=== PATIENT | male | born 1940 | race Caucasian/White ===

== ENCOUNTER 2016-08-12 12:52 | Inpatient (IN) | payer OTHER, MEDICARE ==
[2016-08-12 12:58] VITALS: BMI 25.2
--- NOTE | 2016-08-12 13:42 | PDOC ---
History of Present Illness <CheriEloisa - Last Filed: 08/12/16 14:35> - General History Source: Patient, Family <Tyra Marroquin - Last Filed: 08/12/16 16:51> - General Chief Complaint: Chest Pain Stated Complaint: CHEST PAIN, SOB Time Seen by Provider: 08/12/16 13:03 - History of Present Illness Initial Comments: 08/12/16 13:44 Patient is a 76 year old male with significant medical hx of DE, COPD (3L O2 at home; normal O2Sat is 90%), HTN, HLD, DM and CAD s/p cardiac stents x 5 who is presenting to the ED with left sided pleuritic chest pain since yesterday and several days of worsening shortness of breath. Patient reports he has had intermittent chest pain for the past several years but has worsened yesterday. His chest pain is localized to the left side, non-radiating, pleuritic in nature , and described as sharp and tight. The patient endorses worsening of his symptoms with exertion and increased swelling to his left leg. Family members report that the patient has had decreased appetite and increased fatigue over the past several days. The patient was on Coumadin, but is now on Plavix; he is unsure why he is on blood thinners and does not have a known history of blood clots. Denies fever, chills, cough, lightheadedness, palpitations, nausea, vomiting, diarrhea, abdominal pain, and recent travel. Ethnographer: Sanjay Kerr MD Quality Head: Sanjay Wright MD PMD: Cain Yun MD Social Hx: Former smoker for 30 years; 20 cigarettes per day. Social drinker. Denies illegal drug use. (Eloisa Alonzo) Past History <Eloisa Alonzo - Last Filed: 08/12/16 14:35> - Past Medical History Anemia: No Asthma: Yes Cancer: No Cardiac Disorders: Yes (DE, STENTS INSERTION X 5) CVA: Yes ("MILD" 2 YRS AGO) COPD: Yes CHF: Yes Dementia: No Diabetes: Yes (NIDDM) GI Disorders: Yes (HIATAL HERNIA) Disorders: No HTN: Yes Hypercholesterolemia: Yes Liver Disease: No Seizures: No Thyroid Disease: No - Surgical History Abdominal Surgery: No Appendectomy: No Cardiac Surgery: Yes (CARDIAC STENTS X5) Cholecystectomy: No Lung Surgery: No Neurologic Surgery: No Orthopedic Surgery: No - Psycho/Social/Smoking Cessation Hx Anxiety: No Suicidal Ideation: No Smoking Status: Yes Smoking History: Former smoker Have you smoked in the past 12 months: No Number of Cigarettes Smoked Daily: 20 If you are a former smoker, when did you quit?: 2013 Information on smoking cessation initiated: No 'Breaking Loose' booklet given: 02/22/12 Hx Alcohol Use: No Drug/Substance Use Hx: No Substance Use Type: None Hx Substance Use Treatment: No <Tyra Marroquin - Last Filed: 08/12/16 16:51> - Past Medical History Allergies/Adverse Reactions: Allergies Allergy/AdvReac Type Severity Reaction Status Date / Time No Known Allergies Allergy Verified 08/12/16 13:25 Home Medications: Ambulatory Orders Albuterol Sulfate [Proair Hfa -] 2 ih IH DAILY PRN #0 hfa.aer.ad 02/24/12 Atorvastatin Ca [Lipitor] 20 mg PO HS #0 tablet 02/24/12 Losartan Potassium 100 mg PO DAILY #0 tablet 02/24/12 Amlodipine Besylate [Norvasc -] 10 mg PO DAILY 11/18/14 Furosemide [Lasix -] 40 mg PO PRN 11/18/14 Metformin HCl [Glucophage -] 1,000 mg PO BIDAC 11/18/14 Metoprolol Succinate [Toprol XL -] 50 mg PO DAILY 03/27/15 Alprazolam 0.25 mg PO PRN PRN 05/29/15 Cholecalciferol (Vitamin D3) [Vitamin D3] 1,000 unit PO DAILY 05/29/15 Clopidogrel Bisulfate [Plavix -] 75 mg PO DAILY #0 tablet 05/30/15 Cholecalciferol (Vitamin D3) [Vitamin D3] 1,000 unit PO DAILY 08/12/16 Cardiac Specific PMH - Complaint Specific PMHX Angina: Yes Pacemaker: No Pulmonary Embolus: No <Tyra Marroquin - Last Filed: 08/12/16 16:51> Review of Systems <Eloisa Alonzo - Last Filed: 08/12/16 14:35> <Tyra Marroquin - Last Filed: 08/12/16 16:51> - Review of Systems Comments:: 08/12/16 13:45 CONSTITUTIONAL: Present: increased fatigue, loss of appetite Absent: fever, chills, diaphoresis HEENT: Absent: rhinorrhea, nasal congestion, throat pain, throat swelling, difficulty swallowing, mouth swelling, ear pain, eye pain, visual changes CARDIOVASCULAR: Present: chest pain, peripheral edema Absent: syncope, palpitations, irregular heart rate, lightheadedness RESPIRATORY: Present: shortness of breath, dyspnea with exertion Absent: cough, orthopnea, wheezing, stridor, hemoptysis GASTROINTESTINAL: Absent: abdominal pain, abdominal distension, nausea, vomiting, diarrhea, constipation, melena, hematochezia GENITOURINARY: Absent: dysuria, frequency, urgency, hesitancy, hematuria, flank pain, genital pain MUSCULOSKELETAL: Absent: myalgia, arthralgia, joint swelling SKIN: Absent: rash, itching, pallor HEMATOLOGIC/IMMUNOLOGIC: Absent: easy bleeding, easy bruising, lymphadenopathy, frequent infections ENDOCRINE: Absent: unexplained weight gain, unexplained weight loss, heat intolerance, cold intolerance NEUROLOGIC: Absent: headache, focal weakness or paresthesia, dizziness, unsteady gait, seizure, mental status changes, bladder or bowel incontinence. PSYCHIATRIC: Absent: anxiety, depression, suicidal or homicidal ideation, hallucinations (Justin Alonzoa) *Physical Exam <CheriJustina - Last Filed: 08/12/16 14:35> - Physical Exam General Appearance: Yes: Nourished Respiratory/Chest: positive: Other (decreased breath sounds left side, to mid chest. right side clear. access. musc. use) Cardiovascular: positive: Regular Rhythm, Regular Rate, Edema Vascular Pulses: Dorsalis-Pedis (R): 2+, Doralis-Pedis (L): 2+ Gastrointestinal/Abdominal: positive: Normal Bowel Sounds Extremity: positive: Pedal Edema Integumentary: positive: Normal Color, Dry, Warm <Tyra Marroquin - Last Filed: 08/12/16 16:51> - Vital Signs Last Vital Signs Temp Pulse Resp BP Pulse Ox 98 F 87 18 119/67 88 L 08/12/16 12:56 08/12/16 12:56 08/12/16 12:56 08/12/16 12:56 08/12/16 12:56 - Physical Exam Comments: 08/12/16 13:46 GENERAL: Well developed, well nourished. Awake and alert. No acute distress. HEENT: Normocephalic, atraumatic. PERRLA, EOMI. No conjunctival pallor. Sclera are non- icteric. Moist mucous membranes. Oropharynx is clear. NECK: Supple. Full ROM. No JVD. Carotid pulses 2+ and symmetric, without bruits. No thyromegaly. No lymphadenopathy. CARDIOVASCULAR: Regular rate and rhythm. No murmurs, rubs, or gallops. Distal pulses are 2+ and symmetric. PULMONARY: Decreased breath sounds to the left. Increased labor use with respiration, including accessory muscle use. Speaking in full sentences. No wheezing, rales or rhonchi. ABDOMINAL: Soft. Non-tender. Non-distended. No rebound or guarding. No organomegaly. Normoactive bowel sounds. MUSCULOSKELETAL: Normal range of motion at all joints. No bony deformities or tenderness. No CVA tenderness. EXTREMITIES: 3+ pitting edema left lower extremity, 2+ pitting edema to the right lower extremity. No cyanosis. No clubbing. No calf tenderness. SKIN: Warm and dry. Normal capillary refill. No rashes. No jaundice. NEUROLOGICAL: Alert, awake, appropriate. Cranial nerves 2-12 intact. Normal speech. PSYCHIATRIC: Cooperative. Good eye contact. Appropriate mood and affect. (Eloisa Alonzo) Heart Score/ECG Review <Eloisa Alonzo - Last Filed: 08/12/16 14:35> - History History: Highly suspicious - Electrocardiogram EKG: Non specific repolarization disturbance - Age Age: >/= 65 - Risk Factors Risk Factors Heart Score: Yes Hx Hypercholesterolemia, Yes Hx Hypertension, Yes Smoking History Based on the list above the patient has:: >/=3 risk factors or Hx atherosclerotic disease #1 ECG reviewed & interpreted by me at: 01:00 (new TWI AVL, V1, V2) General ECG Interpretation: Sinus Rhythm, Normal Intervals Compared to previous ECG there are: Other (comparison 05/03/14 new TWI V1 - V2) - ECG Intrepretation Rhythm: Regular Rhythm <Tyra Marroquin - Last Filed: 08/12/16 16:51> - ECG Intrepretation Comment:: 08/12/16 13:36 RBB old, left axis. rate 86 bpm. (Tyra Marroquin) ED Treatment Course - LABORATORY CBC & Chemistry Diagram: 08/12/16 14:11 08/12/16 14:11 <Eloisa Alonzo - Last Filed: 08/12/16 14:35> - LABORATORY CBC & Chemistry Diagram: 08/12/16 14:11 08/12/16 14:11 <Tyra Marroquin - Last Filed: 08/12/16 16:51> - ADDITIONAL ORDERS Additional order review: Laboratory Results 08/12/16 08/12/16 08/12/16 14:11 14:11 14:11 INR 1.19 H PTT (Actin FS) 29.6 Sodium 135 L Potassium 5.6 H D Chloride 97 L Carbon Dioxide 30 Anion Gap 8 BUN 32 H D Creatinine 1.1 D Creat Clearance w eGFR > 60 Random Glucose 213 H Calcium 8.9 Magnesium 1.9 Total Bilirubin 0.6 AST 89 H D ALT 93 H D Alkaline Phosphatase 225 H D Creatine Kinase 70 Troponin I 0.02 Total Protein 6.2 L Albumin 2.4 L D 08/12/16 14:11 RBC 3.87 L D MCV 89.2 MCHC 32.8 RDW 15.1 MPV 8.0 Neutrophils % 88.3 H D Lymphocytes % 4.5 L D Monocytes % 6.5 Eosinophils % 0.2 D Basophils % 0.5 - RADIOLOGY Radiology Studies Ordered: Category Date Time Status CHEST CTA [CT] Stat CT Scan 08/12/16 15:41 Ordered CHEST X-RAY PORTABLE* [RAD] Stat Radiology 08/12/16 13:45 Completed Radiograph Interpretation: 08/12/16 14:28 Chest X-Ray Frontal view of the chest is provided. Prior study is dated March 27, 2015. Diaphragms are low lying concerning for COPD. There is a suspected left upper lobe suprahilar mass now noted, measuring up to about 6 cm in size and recommend correlation with chest CT. The right lung apex is obscured due to soft tissue of the neck and jaw. Cardiac silhouette is upper limits of normal in size. Increased interstitial lung markings are noted which may reflect congestive changes. Impression: Suspected left upper lobe mass. Recommend chest CT. Additional findings as above. Findings were discussed with Dr. Marroquin. Reported By: Alfred Elena MD (Eloisa Alonzo) - Medications Given in the ED: ED Medications Discontinued Medications Generic Name Dose Route Start Last Admin Trade Name Desi PRN Reason Stop Dose Admin Albuterol/Ipratropium 1 amp 08/12/16 14:58 08/12/16 14:58 Duoneb - NEB 08/12/16 14:59 1 amp ONCE ONE Administration Aspirin 162 mg 08/12/16 13:44 08/12/16 14:10 Asa - PO 08/12/16 13:45 162 mg ONCE ONE Administration Medical Decision Making <Eloisa Alonzo - Last Filed: 08/12/16 14:35> <Tyra Marroquin - Last Filed: 08/12/16 16:51> - Medical Decision Making 08/12/16 13:36 76 yo M with h/o CAD HTN COPD home oxygen 3L, ( baseline sats 90) here wtih c/ o worseing sob last few days, also c/o left sided chest pain, no f/c. has had simlar symptoms in the past. also noted bilat leg swelling recently. no recent travel. states no knowon h/o blood clots. but has been on coumadin in past, discontinued due to bleeding. followed by [facility]. dr. Kerr Sanjay. on exam pt mild acc. m use, lung with decr breath sounds left lung, clear on right. card RRR no m/r/g. abd soft disteded. bilat pitting edema, left greater than right. skin warm and dry. differential: CHF, plueral effusion, mass pna, DE, pe. plan cxr bedside sono, ekg trop cb lytes tele monitoring. aspirin taking prior. will likley require admission. possible ct angio pending findings. 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 dr. wright, will see pt. new lung mass on cxr. d/w pt pcp dr. yun, would like admitted to Dr. Arias. 08/12/16 15:05 comparison EKG obtained from guard range dr. kerr no acute changes comparison 05/31/16 (Tyra Marroquin) *DC/Admit/Observation/Transfer <Eloisa Alonzo - Last Filed: 08/12/16 14:35> - Discharge Dispostion Admit: Yes <Tyra Marroquin - Last Filed: 08/12/16 16:51> Diagnosis at time of Disposition: Lung mass - Discharge Dispostion Decision to Admit order Date/Time: 08/12/16 16:50 (Tyra Marroquin) - Referrals Referrals: Cain Yun MD [Primary Care Provider] - - Attestations Scribe Attestion: 08/12/16 13:48 Documentation prepared by Eloisa Alonzo, acting as medical videographer for Tyra Marroquin MD. (Eloisa Alonzo)
[2016-08-12] MEDS ORDERED: ASPIRIN 81 MG CHEWABLE TABLETS PO ONE (13:44)
[2016-08-12] MEDS ORDERED: ASPIRIN COATED 81 MG TABLET.EC ONE (13:55)
[2016-08-12 14:26] LABS: BASOPHIL 0.5 % (0-2.0); EOSINOPHIL 0.2 % (0-4.5); MCH 29.3 pg (25.7-33.7); MCHC 32.8 g/dl (32.0-35.9); MEAN CELL VOLUME 89.2 fl (80-96); NEUTROPHILS 88.3 % (42.8-82.8); PLATELET COUNT 382 K/MM3 (134-434); RDW 15.1 % (11.9-15.9); WHITE BLOOD COUNT 14.8 K/mm3 (4.0-10.0)
[2016-08-12 14:43] LABS: INR 1.19 (0.82-1.09); PROTHROMBIN TIME (PATIENT) 13.1 SEC (9.98-11.88)
[2016-08-12] MEDS ORDERED: ALBUTEROL SO4 2.5/IPRATROPIUM 0.5 INH SOL 3 ML VIAL.NEB. NEB ONE ×2 (14:58→15:58)
[2016-08-12 15:13] LABS: ALBUMIN 2.4 g/dl (3.4-5.0); ANION GAP 8 (8-16); BILIRUBIN,TOTAL 0.6 mg/dL (0.2-1.0); CALCIUM 8.9 mg/dL (8.5-10.1); CO2 30 mmol/L (21-32); COCKROFT - GAULT 73.33; CREATININE 1.1 mg/dL (0.7-1.3); GLUCOSE,RANDOM 213 mg/dL (74-106); MAGNESIUM 1.9 mg/dL (1.8-2.4); SGOT/AST 89 U/L (15-37); SGPT/ALT 93 U/L (12-78); TOT PROT 6.2 g/dl (6.4-8.2)
[2016-08-12 15:15] LABS: ALK PHOS 225 U/L (45-117); TROPONIN I 0.02 ng/ml (0.00-0.05)
--- NOTE | 2016-08-12 15:55 | CON.PULM ---
Consult Consult Specialty:: PULMONARY Referred by:: Dr. Marroquin Reason for Consultation:: chest pain - History of Present Illness Chief Complaint: chest pain History of Present Illness: 76yo male with h/o HTN, DM, hyperlipidemia, CAD s/p stents, PAD, severe COPD/ emphysema, chronic hypoxic respiratory failure on home O2 who presents with left sided chest pain x 1 day. He went to his PMD for a routine physical 4 days ago, started experiencing left sided sharp pain at the lower rib border anterior axillary line. His shortness of breath is at baseline but with a cough productive of white sputum. No significant wheezing. Leg swelling at baseline. Reports decreased appetite and a 16lb weight loss in the past 6 months. No subjective fevers, chills or night sweats. He reports recent echocardiogram with his program writer which was reportedly normal. - History Source History Provided By: Patient, Family Member, Medical Record Limitations to Obtaining History: No Limitations - Past Medical History Cardio/Vascular: Yes: CAD, HTN, Hyperlipdemia, [place] Pulmonary: Yes: COPD, O2 Dependent - Alcohol/Substance Use Hx Alcohol Use: No - Smoking History Smoking history: Former smoker Have you smoked in the past 12 months: No Aproximately how many cigarettes per day: 20 If you are a former smoker, when did you quit?: 2013 - Social History Usual Living Arrangement: Alone ADL: Independent History of Recent Travel: No Home Medications - Allergies Allergies/Adverse Reactions: Allergies Allergy/AdvReac Type Severity Reaction Status Date / Time No Known Allergies Allergy Verified 08/12/16 13:25 - Home Medications Home Medications: Ambulatory Orders Albuterol Sulfate [Proair Hfa -] 2 ih IH DAILY PRN #0 hfa.aer.ad 02/24/12 Atorvastatin Ca [Lipitor] 20 mg PO HS #0 tablet 02/24/12 Losartan Potassium 100 mg PO DAILY #0 tablet 02/24/12 Amlodipine Besylate [Norvasc -] 10 mg PO DAILY 11/18/14 Furosemide [Lasix -] 40 mg PO PRN 11/18/14 Metformin HCl [Glucophage -] 1,000 mg PO BIDAC 11/18/14 Metoprolol Succinate [Toprol XL -] 50 mg PO DAILY 03/27/15 Alprazolam 0.25 mg PO PRN PRN 05/29/15 Cholecalciferol (Vitamin D3) [Vitamin D3] 1,000 unit PO DAILY 05/29/15 Clopidogrel Bisulfate [Plavix -] 75 mg PO DAILY #0 tablet 05/30/15 Cholecalciferol (Vitamin D3) [Vitamin D3] 1,000 unit PO DAILY 08/12/16 Review of Systems - Review of Systems Constitutional: reports: Loss of Appetite, Weakness. denies: Chills, Fever Eyes: denies: Recent Change in Vision HENT: denies: Nasal Congestion, Throat Pain Neck: denies: Stiffness, Tenderness Cardiovascular: reports: Chest Pain, Edema, Shortness of Breath. denies: Palpitations Respiratory: reports: Cough, SOB. denies: Hemoptysis, Wheezing Gastrointestinal: denies: Abdominal Pain, Nausea, Vomiting Genitourinary: denies: Dysuria, Hematuria Neurological: denies: Dizziness, Headache Endocrine: reports: Unexplained Weight Loss Physical Exam Vital Sings: Vital Signs Temperature 98 F 08/12/16 12:56 Pulse Rate 87 08/12/16 12:56 Respiratory Rate 18 08/12/16 12:56 Blood Pressure 119/67 08/12/16 12:56 O2 Sat by Pulse Oximetry (%) 88 L 08/12/16 12:56 Constitutional: Yes: Calm Eyes: Yes: Conjunctiva Clear, EOM Intact HENT: Yes: Atraumatic, Normocephalic Neck: Yes: Supple, Trachea Midline. No: Lymphadenopathy Cardiovascular: Yes: Regular Rate and Rhythm Respiratory: Yes: Regular, Diminished (distant breath sounds) ...Clubbing: No Gastrointestinal: Yes: Normal Bowel Sounds, Soft. No: Tenderness Edema: Yes Neurological: Yes: Alert, Oriented Labs: CBC, BMP 08/12/16 14:11 08/12/16 14:11 Imaging - Results Chest X-ray: Report Reviewed, Image Reviewed (interstitial changes, ?CHING mass) Problem List - Problems (1) Chest pain Code(s): R07.9 - CHEST PAIN, UNSPECIFIED (2) COPD (chronic obstructive pulmonary disease) Code(s): J44.9 - CHRONIC OBSTRUCTIVE PULMONARY DISEASE, UNSPECIFIED (3) Chronic respiratory failure with hypoxia Code(s): J96.11 - CHRONIC RESPIRATORY FAILURE WITH HYPOXIA (4) Elevated liver enzymes Code(s): R74.8 - ABNORMAL LEVELS OF OTHER SERUM ENZYMES (5) Chronic diastolic (congestive) heart failure Code(s): I50.32 - CHRONIC DIASTOLIC (CONGESTIVE) HEART FAILURE (6) Pulmonary hypertension Code(s): I27.2 - OTHER SECONDARY PULMONARY HYPERTENSION Assessment/Plan Chest Pain r/o Pneumonia vs Lung Mass Severe COPD Emphysema LV Diastolic Dysfunction Pulmonary HTN Elevated LFTs - empiric antibiotics - f/u cultures, send urinary antigens - inhaled bronchodilators - can defer systemic steroids at this time - agree with CT chest - abdominal ultrasound, trend LFTs - O2 to keep SPo2 >90% - echocardiogram - DVT prophylaxis Thank you for this consult Sanjay Wright MD
[2016-08-12] MEDS ORDERED: AZITHROMYCIN IVPB 500 MG in DEXTROSE 5%-WATER - 250 ML IVPB SCH (16:15)
[2016-08-12] MEDS ORDERED: CEFTRIAXONE 50 ML ONE ×2 (16:16→16:17)
[2016-08-12] MEDS ORDERED: AZITHROMYCIN IVPB 250 ML IVPB ONE (16:16)
[2016-08-12] MEDS: cefTRIAXone 1 GM/50 ML BAG (PRE-DOCKED) IVPB SCH (16:25)
[2016-08-12] MEDS: AZITHROMYCIN IVPB 500 MG/250 ML D5W PRE-DOCKED IVPB SCH (16:27)
[2016-08-12] MEDS ORDERED: ACETAMINOPHEN 325 MG TABLET (FP) PO PRN (16:30)
--- NOTE | 2016-08-12 16:39 | HP ---
Admitting History and Physical - Primary Care Physician PCP: Cain Yun - Admission Chief Complaint: I'm having trouble breathing History of Present Illness: Mr Varma is a pleasant 76 year old male who comes in with increasing dyspnea on exertion and left sided chest pain. He says he is always chronically short of breath and requires oxygen at times. However over the past week he notes he gets short of breath with minimal exertion and needs to rest. He also notes he has a sharp left sided, non-radiating chest pain with the shortness of breath as well. He says it is made worse by deep breathing and coughing. He has a chronic cough that is non-productive and unchanged. He denies fevers, chills, lightheadedness, passing out, chest pressure, abdominal pain, nausea, vomiting, diarrhea, pain on urination, or leg redness. He has chronic hesitancy on urination that is unchanged. He has decreased appetite over the past week. He has chronic leg swelling that is unchanged. History Source: Patient Limitations to Obtaining History: No Limitations - Past Medical History Cardiovascular: Yes: Aneurysm, CAD, HTN, Hyperlipdemia, [place] Pulmonary: Yes: COPD, O2 Dependent Renal/: Yes: Renal Inusuff - Past Surgical History Past Surgical History: Yes: Hernia Repair, Stent - Smoking History Smoking history: Former smoker Have you smoked in the past 12 months: No Aproximately how many cigarettes per day: 20 If you are a former smoker, when did you quit?: 2013 - Alcohol/Substance Use Hx Alcohol Use: No History of Substance Use: reports: None - Social History Usual Living Arrangement: Yes: With Spouse ADL: Independent History of Recent Travel: No Home Medications - Allergies Allergies/Adverse Reactions: Allergies Allergy/AdvReac Type Severity Reaction Status Date / Time No Known Allergies Allergy Verified 08/12/16 13:25 - Home Medications Home Medications: Ambulatory Orders Albuterol Sulfate [Proair Hfa -] 2 ih IH DAILY PRN #0 hfa.aer.ad 02/24/12 Atorvastatin Ca [Lipitor] 20 mg PO HS #0 tablet 02/24/12 Losartan Potassium 100 mg PO DAILY #0 tablet 02/24/12 Amlodipine Besylate [Norvasc -] 10 mg PO DAILY 11/18/14 Furosemide [Lasix -] 40 mg PO PRN 11/18/14 Metformin HCl [Glucophage -] 1,000 mg PO BIDAC 11/18/14 Metoprolol Succinate [Toprol XL -] 50 mg PO DAILY 03/27/15 Alprazolam 0.25 mg PO PRN PRN 05/29/15 Cholecalciferol (Vitamin D3) [Vitamin D3] 1,000 unit PO DAILY 05/29/15 Clopidogrel Bisulfate [Plavix -] 75 mg PO DAILY #0 tablet 05/30/15 Cholecalciferol (Vitamin D3) [Vitamin D3] 1,000 unit PO DAILY 08/12/16 Family Disease History - Family Disease History Family Disease History: CA: Sister Review of Systems Findings/Remarks: Full review of systems obtained, as per HPI and otherwise negative. Physical Examination Vital Signs: Vital Signs Temperature 98 F 08/12/16 12:56 Pulse Rate 87 08/12/16 12:56 Respiratory Rate 18 08/12/16 12:56 Blood Pressure 119/67 08/12/16 12:56 O2 Sat by Pulse Oximetry (%) 88 L 08/12/16 12:56 Constitutional: Yes: Well Nourished, No Distress, Calm Eyes: Yes: Conjunctiva Clear, EOM Intact, PERRL HENT: Yes: Atraumatic, Normocephalic Cardiovascular: Yes: Regular Rate and Rhythm. No: Gallop, Murmur, Rub Respiratory: Yes: Regular, On Nasal O2, Wheezes, Other (fair air entry). No: Rales, Rhonchi Gastrointestinal: Yes: Normal Bowel Sounds, Soft. No: Distention, Tenderness Extremities: Yes: WNL Edema: Yes Edema: LLE: 1+, RLE: 1+ Labs: CBC, BMP 08/12/16 14:11 08/12/16 14:11 Imaging - Results Chest X-ray: Report Reviewed, Image Reviewed Problem List - Problems (1) Pneumonia Assessment/Plan: -patient found to have "mass" on chest x-ray -evaluated chest x-ray, looks more like infiltrate to me -seen by pulmonary, started on rocephin and zithromax -obtain CT scan of the chest -monitor Code(s): J18.9 - PNEUMONIA, UNSPECIFIED ORGANISM (2) Chest pain Assessment/Plan: -atypical -more consistent with pleurisy -cardiology consult -monitor on telemetry Code(s): R07.9 - CHEST PAIN, UNSPECIFIED (3) Chronic diastolic (congestive) heart failure Assessment/Plan: -at baseline -continue lasix Code(s): I50.32 - CHRONIC DIASTOLIC (CONGESTIVE) HEART FAILURE (4) COPD (chronic obstructive pulmonary disease) Assessment/Plan: -with chronic respiratory failure -pulmonary consulted and managing Code(s): J44.9 - CHRONIC OBSTRUCTIVE PULMONARY DISEASE, UNSPECIFIED Qualifiers : COPD type: COPD with acute exacerbation Qualified Code(s): J44.1 - Chronic obstructive pulmonary disease with (acute) exacerbation (5) HTN (hypertension) Assessment/Plan: -continue home regimen Code(s): I10 - ESSENTIAL (PRIMARY) HYPERTENSION (6) HLD (hyperlipidemia) Assessment/Plan: -continue lipitor Code(s): E78.5 - HYPERLIPIDEMIA, UNSPECIFIED
[2016-08-12 17:05] LABS: URINE APPEARANCE CLEAR; URINE BILIRUBIN NEGATIVE (NEGATIVE); URINE COLOR YELLOW; URINE GLUCOSE (UA) 1+ (NEGATIVE); URINE KETONE NEGATIVE (NEGATIVE); URINE LEUK ESTERASE NEGATIVE (NEGATIVE); URINE NITRITE NEGATIVE (NEGATIVE); URINE UROBILINOGEN 2.0 E.U/dl E.U./dl (0.2-1.0)
[2016-08-12] MEDS: ALBUTEROL SO4 2.5/IPRATROPIUM 0.5 INH SOL 3 ML VIAL.NEB. NEB SCH ×2 (17:45→23:59)
[2016-08-12 18:09] LABS: URINE BLOOD 1+ (NEGATIVE); URINE PROTEIN 1+ (NEGATIVE)
[2016-08-12 18:12] LABS: URINE RBC <1 /hpf (0-3); URINE WBC 2 /hpf (3-5)
[2016-08-12] MEDS: ALBUTEROL SO4 0.083% IH SOL 2.5 MG/3 ML VIAL.NEB. NEB PRN (21:00)
[2016-08-12] MEDS: metFORMIN HCL 500 MG TABLET (FP) PO SCH (22:05)
[2016-08-12] MEDS: INSULIN SLIDING SCALE (NOVOLOG) 1 VIAL SQ SCH ×2 (22:05→22:50)
[2016-08-12] MEDS ORDERED: methylPREDNISolone NA SUCC 125 MG/2 ML VIAL ONE (22:22)
[2016-08-12] MEDS ORDERED: INSULIN (NOVOLOG) ASPART 100 UNITS/ML 10ML VIAL ONE (22:34)
[2016-08-12] MEDS ORDERED: methylPREDNISolone NA SUCC 125 MG/2 ML VIAL IVPB ONE (22:45)
[2016-08-12] MEDS: BUDESONIDE/FORMETEROL FUMARATE 160/4.5 mcg INHALER IH SCH (22:49)
[2016-08-12] MEDS: ATORVASTATIN CA 20 MG TABLET (FP) PO SCH (22:50)
[2016-08-12 23:07] LABS: ARTERIAL BLD GAS O2 SATURATION 90.9 % (90-98.9); ARTERIAL BLOOD GAS BASE EXCESS 1.4 meq/l (-2-2); ARTERIAL BLOOD GAS pH 7.39 (7.35-7.45)
[2016-08-12 23:09] LABS: ALLENS TEST POSITIVE; ART PUNCT SITE RIGHT RADIAL; PT. ON O2? YES
[2016-08-12 23:10] LABS: TYPE OF O2 nasal cannula
[2016-08-12 23:11] LABS: ARTERIAL BLOOD GAS PO2 57.6 mmHg (70-100)
[2016-08-13 01:46] LABS: CALCIUM 9.1 mg/dL (8.5-10.1); COCKROFT - GAULT 80.67
[2016-08-13] MEDS: methylPREDNISolone NA SUCC 40 MG/1 ML VIAL IVPB SCH ×4 (02:14→21:48)
[2016-08-13 02:29] LABS: TROPONIN I 0.02 ng/ml (0.00-0.05)
[2016-08-13] MEDS: metFORMIN HCL 500 MG TABLET (FP) PO SCH ×2 (06:18→18:12)
[2016-08-13] MEDS: INSULIN SLIDING SCALE (NOVOLOG) 1 VIAL SQ SCH ×4 (06:26→21:53)
[2016-08-13] MEDS: ALBUTEROL SO4 2.5/IPRATROPIUM 0.5 INH SOL 3 ML VIAL.NEB. NEB SCH ×3 (06:29→23:01)
[2016-08-13] MEDS ORDERED: PT OWN MED DRAWER 7, Y5N ONE ×2 (09:02→18:08)
[2016-08-13] MEDS: AZITHROMYCIN IVPB 500 MG/250 ML D5W PRE-DOCKED IVPB SCH (09:15)
[2016-08-13] MEDS ORDERED: TIOTROPIUM BROMIDE 18 MCG/INH (DEVICE W/ 5 CAPSULES) IH SCH (10:00)
--- NOTE | 2016-08-13 10:35 | PN ---
Progress Note (short form) - Note Progress Note: PULMONARY OOB TO CHAIR VSS/AFEBRILE APPEARS SOB ON O2 PALE/ANICTERIC DIMINISHED B/L BREATH SOUNDS S1S2 BS+ + B/L LOWER EXT EDEMA LABS/MEDS/CTA/MICRO/NOTES REVIEWED CABP LIKELY MULTIPLE MEDICAL PROBLEMS LISTED IN CONSULT NO EVIDENCE TO SUPPORT PE CHECK PANCULTURE/ CONTINUE ANTIBIOTICS/O2 SUPPLEMENTATION/BRONCHODILATION/REDUCE AND TAPER STEROIDS GLYCEMIC CONTROL/DVT PROPHYLAXSIS WILL FOLLOW Xiomara MOORE MD
--- NOTE | 2016-08-13 10:50 | CON.CARD ---
Cardiology Consult (text) - Consultation Consultation Note: cc: sob hpi: 76 m hx htn, copd on home 02, hld, dm, cad s/p remote mi/pci, remote aortic graft endo repair, here with sob. Has been having worse sob/[place] and increased o2 requirements at home past week or so. Also some chest pain in left axilla region, sharp, worse with cough or deep breath. No palps, dizzy, loc, pnd, orthopnea, le edema. Found to have pna, now on abx and steroids for copd. Sees dr kerr for cardio. pmh: per hpi psh: per hpi, hernia repair social: ex tob fam: no premature cad ros: per hpi; no nvd, +cough, no judge, no vision changes, +wt loss, no muscle pains, no rash meds: Home Medications Medication Instructions Recorded Albuterol Sulfate [Proair Hfa -] 2 ih IH DAILY PRN #0 hfa.aer.[email or web address] 02/24/12 Atorvastatin Ca [Lipitor] 20 mg PO HS #0 tablet 02/24/12 Amlodipine Besylate [Norvasc -] 10 mg PO HS 11/18/14 Furosemide [Lasix -] 20 mg PO HS 11/18/14 Metformin HCl [Glucophage -] 1,000 mg PO BIDAC 11/18/14 Alprazolam 0.25 mg PO PRN PRN 05/29/15 Cholecalciferol (Vitamin D3) 1,000 unit PO HS 05/29/15 [Vitamin D3] Clopidogrel Bisulfate [Plavix -] 75 mg PO HS 08/12/16 Fluticasone/Salmeterol [Advair Hfa 2 inh PO BID 08/12/16 230-21 Mcg Inhaler] Ipratropium/Albuterol Sulfate 3 ml IH BID PRN 08/12/16 [Iprat-Albut 0.5-3(2.5) mg/3 ml] Losartan Potassium 100 mg PO HS 08/12/16 Magnesium Oxide [Mag-Ox -] 400 mg PO HS 08/12/16 Prednisone [Deltasone] 20 mg PO DAILY PRN 08/12/16 pe: Vital Signs Period Temp Pulse Resp BP Sys/Lopez Pulse Ox Last 24 Hr 97.9 F-99.7 F 77-103 18-28 102-152/48-78 3-93 nad no jvd rrr s1s2 no mrg scattered rhonchi, mild wheeze, nl eff aaox3 no le e/c/c pos dp pt no jaundice diaphoresis abd nt nd pos bs Laboratory Last Values WBC 14.8 K/mm3 (4.0-10.0) H D 08/12/16 14:11 RBC 3.87 M/mm3 (4.00-5.60) L D 08/12/16 14:11 Hgb 11.3 GM/dL (11.7-16.9) L D 08/12/16 14:11 Hct 34.5 % (35.4-49) L D 08/12/16 14:11 MCV 89.2 fl (80-96) 08/12/16 14:11 MCHC 32.8 g/dl (32.0-35.9) 08/12/16 14:11 RDW 15.1 % (11.9-15.9) 08/12/16 14:11 Plt Count 382 K/MM3 (134-434) D 08/12/16 14:11 MPV 8.0 fl (7.5-11.1) 08/12/16 14:11 Neutrophils % 88.3 % (42.8-82.8) H D 08/12/16 14:11 Lymphocytes % 4.5 % (8-40) L D 08/12/16 14:11 Monocytes % 6.5 % (3.8-10.2) 08/12/16 14:11 Eosinophils % 0.2 % (0-4.5) D 08/12/16 14:11 Basophils % 0.5 % (0-2.0) 08/12/16 14:11 INR 1.19 (0.82-1.09) H 08/12/16 14:11 PTT (Actin FS) 29.6 SECONDS (26.9-34.4) 08/12/16 14:11 Puncture Site Right radial 08/12/16 22:42 ABG pH 7.39 (7.35-7.45) 08/12/16 22:42 ABG pCO2 at Pt Temp 43.5 mmHg (35-45) 08/12/16 22:42 ABG pO2 at Pt Temp 57.6 mmHg (70-100) L 08/12/16 22:42 ABG HCO3 26.0 meq/L (22-26) 08/12/16 22:42 ABG O2 Sat (Measured) 90.9 % (90-98.9) 08/12/16 22:42 ABG O2 Content 14.0 % vol (15-22) L 08/12/16 22:42 ABG Base Excess 1.4 meq/l (-2-2) 08/12/16 22:42 Omi Test Positive 08/12/16 22:42 O2 Delivery Device nasal cannula 08/12/16 22:42 Oxygen Flow Rate 5lpm 08/12/16 22:42 PEEP 0.0 cmH2O 08/12/16 22:42 Sodium 135 mmol/L (136-145) L 08/13/16 00:01 Potassium 5.0 mmol/L (3.5-5.1) 08/13/16 00:01 Chloride 98 mmol/L (98-107) 08/13/16 00:01 Carbon Dioxide 27 mmol/L (21-32) 08/13/16 00:01 Anion Gap 10 (8-16) 08/13/16 00:01 BUN 31 mg/dL (7-18) H 08/13/16 00:01 Creatinine 1.0 mg/dL (0.7-1.3) 08/13/16 00:01 Creat Clearance w eGFR > 60 (>60) 08/12/16 14:11 POC Glucometer 260 UNITS (()) 08/13/16 05:38 Random Glucose 170 mg/dL (74-106) H D 08/13/16 00:01 Calcium 9.1 mg/dL (8.5-10.1) 08/13/16 00:01 Magnesium 1.9 mg/dL (1.8-2.4) 08/12/16 14:11 Total Bilirubin 0.6 mg/dL (0.2-1.0) 08/12/16 14:11 AST 89 U/L (15-37) H D 08/12/16 14:11 ALT 93 U/L (12-78) H D 08/12/16 14:11 Alkaline Phosphatase 225 U/L (45-117) H D 08/12/16 14:11 Creatine Kinase 70 IU/L (39-308) 08/13/16 00:01 Troponin I 0.02 ng/ml (0.00-0.05) 08/13/16 00:01 B-Natriuretic Peptide 4978.92 pg/ml (5-450) H 08/12/16 14:11 Total Protein 6.2 g/dl (6.4-8.2) L 08/12/16 14:11 Albumin 2.4 g/dl (3.4-5.0) L D 08/12/16 14:11 Urine Color Yellow 08/12/16 16:50 Urine Appearance Clear 08/12/16 16:50 Urine pH 5.0 (5.0-8.0) 08/12/16 16:50 Urine Protein 1+ (NEGATIVE) H 08/12/16 16:50 Urine Glucose (UA) 1+ (NEGATIVE) H 08/12/16 16:50 Urine Ketones Negative (NEGATIVE) 08/12/16 16:50 Urine Blood 1+ (NEGATIVE) H 08/12/16 16:50 Urine Nitrite Negative (NEGATIVE) 08/12/16 16:50 Urine Bilirubin Negative (NEGATIVE) 08/12/16 16:50 Urine Urobilinogen 2.0 e.u/dl E.U./dl (0.2-1.0) 08/12/16 16:50 Ur Leukocyte Esterase Negative (NEGATIVE) 08/12/16 16:50 Urine RBC <1 /hpf (0-3) 08/12/16 16:50 Urine WBC 2 /hpf (3-5) 08/12/16 16:50 Ur Epithelial Cells Rare /hpf (FEW) 08/12/16 16:50 tele: sr, pvcs ecg 08/12/16: sr, old rbbb cta chest: no pe, no chf, +left infiltrates echo 04/2014: nl lv, rv tds, mod brian, mod mr, mod tr, rvsp 40-50, mild-mod , mod ar, ao root mild dilatation a/p: 76 m hx htn, copd on home 02, hld, dm, cad s/p remote mi/pci, remote aortic graft endo repair, here with sob. sob, pna, copd: -no signs chf or acs -sxs likely due to pna/copd, cont abx/steroids per pulm/pmd -check updated echo htn: -cont home meds hld: -cont home statin chest pain, cad s/p remote mi/pci: -no signs acs, ce's neg x2 -current cp seems related to msk/pna, not suggestive of cardiac etiology -prior echo with nl lvef, check updated -cont home statin, arb, ccb, plavix mr, tr, ar, as: -moderate on prior echo, no signs of chf, monitor with repeat echo here
--- NOTE | 2016-08-13 10:56 | PN ---
Progress Note, Physician Chief Complaint: Mr Varma says he is feeling better. Says his breathing is improved and the chest pain resolved. No n/v. - Current Medication List Current Medications: Active Medications Acetaminophen (Tylenol -) 650 mg PO Q4H PRN PRN Reason: FEVER OR PAIN Albuterol Sulfate (Ventolin 0.083% Nebulizer Soln -) 1 amp NEB Q4H PRN PRN Reason: SHORT OF BREATH/WHEEZING Last Admin: 08/12/16 21:00 Dose: 1 amp Albuterol/Ipratropium (Duoneb -) 1 amp NEB QIDR [facility] Last Admin: 08/13/16 06:29 Dose: 1 amp Amlodipine Besylate (Norvasc -) 10 mg PO DAILY [facility] Atorvastatin Calcium (Lipitor -) 20 mg PO HS [facility] Last Admin: 08/12/16 22:50 Dose: 20 mg Azithromycin (Zithromax 500mg Ivpb (Pre-Docked)) 500 mg IVPB DAILY [facility] Last Admin: 08/13/16 09:15 Dose: 500 mg Budesonide/Formoterol Fumarate (Symbicort 160/4.5mcg -) 2 puff IH BID [facility] Last Admin: 08/12/16 22:49 Dose: 2 puff Ceftriaxone Sodium (Rocephin 1gm Ivpb (Pre-Docked)) 1 gm IVPB DAILY [facility] PRN Reason: Protocol Last Admin: 08/12/16 16:25 Dose: 1 gm Cholecalciferol (Vitamin D3 -) 1,000 unit PO DAILY [facility] Clopidogrel Bisulfate (Plavix -) 75 mg PO DAILY [facility] Enoxaparin Sodium (Lovenox -) 40 mg SQ DAILY [facility] Insulin Aspart (Novolog Vial Sliding Scale -) 0 vial SQ ACHS [facility] PRN Reason: Protocol Last Admin: 08/13/16 06:26 Dose: 5 units Losartan Potassium (Cozaar -) 100 mg PO DAILY [facility] Metformin HCl (Glucophage -) 1,000 mg PO BIDAC [facility] Last Admin: 08/13/16 06:18 Dose: Not Given Methylprednisolone Sodium Succinate (Solu-Medrol -) 40 mg IVPB Q6H-IV [facility] Last Admin: 08/13/16 09:11 Dose: 40 mg - Objective Vital Signs: Vital Signs Temperature 97.9 F 08/13/16 06:00 Pulse Rate 80 08/13/16 09:31 Respiratory Rate 20 08/13/16 09:31 Blood Pressure 132/78 08/13/16 09:31 O2 Sat by Pulse Oximetry (%) 93 L 08/12/16 23:00 Constitutional: Yes: Well Nourished, No Distress, Calm Cardiovascular: Yes: Regular Rate and Rhythm. No: Gallop, Murmur, Rub Respiratory: Yes: Regular, On Nasal O2, Rhonchi. No: Rales, Wheezes Gastrointestinal: Yes: Normal Bowel Sounds, Soft. No: Distention, Tenderness Extremities: Yes: WNL Edema: No Labs: CBC, BMP 08/13/16 00:01 INR, PTT INR 1.19 (0.82-1.09) H 08/12/16 14:11 Problem List - Problems (1) Pneumonia Code(s): J18.9 - PNEUMONIA, UNSPECIFIED ORGANISM (2) Chest pain Code(s): R07.9 - CHEST PAIN, UNSPECIFIED (3) Chronic diastolic (congestive) heart failure Code(s): I50.32 - CHRONIC DIASTOLIC (CONGESTIVE) HEART FAILURE (4) COPD (chronic obstructive pulmonary disease) Code(s): J44.9 - CHRONIC OBSTRUCTIVE PULMONARY DISEASE, UNSPECIFIED Qualifiers : COPD type: COPD with acute exacerbation Qualified Code(s): J44.1 - Chronic obstructive pulmonary disease with (acute) exacerbation (5) HTN (hypertension) Code(s): I10 - ESSENTIAL (PRIMARY) HYPERTENSION (6) HLD (hyperlipidemia) Code(s): E78.5 - HYPERLIPIDEMIA, UNSPECIFIED (7) Diabetes Code(s): E11.9 - TYPE 2 DIABETES MELLITUS WITHOUT COMPLICATIONS Assessment/Plan (1) Pneumonia Assessment/Plan: -CT scan of the chest showing infiltrates consistent with pneumonia -continue rocephin and zithromax day 2 -leukocytosis improving -continue current management Code(s): J18.9 - PNEUMONIA, UNSPECIFIED ORGANISM (2) Chest pain Assessment/Plan: -resolved -pleurisy secondary to pneumonia Code(s): R07.9 - CHEST PAIN, UNSPECIFIED (3) Chronic diastolic (congestive) heart failure Assessment/Plan: -at baseline -continue lasix Code(s): I50.32 - CHRONIC DIASTOLIC (CONGESTIVE) HEART FAILURE (4) COPD (chronic obstructive pulmonary disease) Assessment/Plan: -pulmonary following -solumedrol added -continue duonebs Code(s): J44.9 - CHRONIC OBSTRUCTIVE PULMONARY DISEASE, UNSPECIFIED Qualifiers : COPD type: COPD with acute exacerbation Qualified Code(s): J44.1 - Chronic obstructive pulmonary disease with (acute) exacerbation (5) HTN (hypertension) Assessment/Plan: -continue home regimen Code(s): I10 - ESSENTIAL (PRIMARY) HYPERTENSION (6) HLD (hyperlipidemia) Assessment/Plan: -continue lipitor Code(s): E78.5 - HYPERLIPIDEMIA, UNSPECIFIED (7) Diabetes -continue diabetic diet -continue metformin and SSI -expect hyperglycemia with solumedrol dose -if remains consistently elevated, may need low dose levemir while on high dose steroids
[2016-08-13] MEDS: LOSARTAN POTASSIUM 50 MG TABLET (FP) PO SCH (11:03)
[2016-08-13] MEDS: CHOLECALCIFEROL (VITAMIN D3) 1,000 UNIT TABLET (FP) PO SCH (11:04)
[2016-08-13] MEDS: CLOPIDOGREL BISULFATE 75 MG TABLET (FP) PO SCH (11:04)
[2016-08-13] MEDS: amLODIPine BESYLATE 5 MG TABLET (FP) PO SCH (11:04)
[2016-08-13] MEDS: ENOXAPARIN NA (PORCINE) 40 MG/0.4 ML DISP.SYRIN SQ SCH (11:04)
[2016-08-13 11:05] LABS: BASOPHIL 0.1 % (0-2.0); MCH 28.9 pg (25.7-33.7); MCHC 32.6 g/dl (32.0-35.9); MEAN CELL VOLUME 88.8 fl (80-96); MEAN PLT VOLUME 7.3 fl (7.5-11.1); NEUTROPHILS 96.7 % (42.8-82.8); PLATELET COUNT 374 K/MM3 (134-434); WHITE BLOOD COUNT 13.6 K/mm3 (4.0-10.0)
[2016-08-13] MEDS: BUDESONIDE/FORMETEROL FUMARATE 160/4.5 mcg INHALER IH SCH ×2 (11:06→23:10)
[2016-08-13] MEDS: cefTRIAXone 1 GM/50 ML BAG (PRE-DOCKED) IVPB SCH (11:06)
[2016-08-13 11:32] LABS: ALBUMIN 2.4 g/dl (3.4-5.0); ANION GAP 8 (8-16); BILIRUBIN,DIRECT 0.5 mg/dL (0.0-0.2); BILIRUBIN,TOTAL 0.8 mg/dL (0.2-1.0); CALCIUM 9.1 mg/dL (8.5-10.1); CO2 28 mmol/L (21-32); COCKROFT - GAULT 73.33; CREATININE 1.1 mg/dL (0.7-1.3); MAGNESIUM 1.9 mg/dL (1.8-2.4); PHOSPHOROUS 3.6 mg/dL (2.5-4.9); TOT PROT 6.7 g/dl (6.4-8.2)
[2016-08-13 11:34] LABS: TROPONIN I < 0.02 ng/ml (0.00-0.05)
[2016-08-13 11:55] LABS: GLUCOSE,RANDOM 353 mg/dL (74-106)
[2016-08-13] MEDS ORDERED: INSULIN (NOVOLOG) ASPART 100 UNITS/ML 10ML VIAL ONE (21:35)
[2016-08-13] MEDS: ATORVASTATIN CA 20 MG TABLET (FP) PO SCH (21:48)
[2016-08-14] MEDS: methylPREDNISolone NA SUCC 40 MG/1 ML VIAL IVPB SCH ×3 (02:40→18:15)
[2016-08-14] MEDS: metFORMIN HCL 500 MG TABLET (FP) PO SCH ×2 (06:00→18:14)
[2016-08-14] MEDS: INSULIN SLIDING SCALE (NOVOLOG) 1 VIAL SQ SCH ×4 (06:01→22:05)
[2016-08-14] MEDS: ALBUTEROL SO4 2.5/IPRATROPIUM 0.5 INH SOL 3 ML VIAL.NEB. NEB SCH ×4 (06:20→23:15)
[2016-08-14 07:30] LABS: BASOPHIL 0.1 % (0-2.0); MCHC 32.9 g/dl (32.0-35.9); MEAN CELL VOLUME 88.2 fl (80-96); MEAN PLT VOLUME 7.5 fl (7.5-11.1); NEUTROPHILS 97.1 % (42.8-82.8); PLATELET COUNT 432 K/MM3 (134-434); RDW 14.9 % (11.9-15.9); WHITE BLOOD COUNT 17.9 K/mm3 (4.0-10.0)
[2016-08-14 07:37] LABS: CALCIUM 9.5 mg/dL (8.5-10.1); COCKROFT - GAULT 81.71; CREATININE 1.1 mg/dL (0.7-1.3); MAGNESIUM 2.1 mg/dL (1.8-2.4); PHOSPHOROUS 4.1 mg/dL (2.5-4.9)
--- NOTE | 2016-08-14 07:51 | PN ---
Progress Note, Physician Chief Complaint: sob History of Present Illness: sob has resolved no more cp either no palpit, presyncope - Current Medication List Current Medications: Active Medications Acetaminophen (Tylenol -) 650 mg PO Q4H PRN PRN Reason: FEVER OR PAIN Albuterol Sulfate (Ventolin 0.083% Nebulizer Soln -) 1 amp NEB Q4H PRN PRN Reason: SHORT OF BREATH/WHEEZING Last Admin: 08/12/16 21:00 Dose: 1 amp Albuterol/Ipratropium (Duoneb -) 1 amp NEB QIDR [facility] Last Admin: 08/14/16 06:20 Dose: 1 amp Amlodipine Besylate (Norvasc -) 10 mg PO DAILY [facility] Last Admin: 08/13/16 11:04 Dose: 10 mg Atorvastatin Calcium (Lipitor -) 20 mg PO HS [facility] Last Admin: 08/13/16 21:48 Dose: 20 mg Azithromycin (Zithromax 500mg Ivpb (Pre-Docked)) 500 mg IVPB DAILY [facility] Last Admin: 08/13/16 09:15 Dose: 500 mg Budesonide/Formoterol Fumarate (Symbicort 160/4.5mcg -) 2 puff IH BID [facility] Last Admin: 08/13/16 23:10 Dose: 2 puff Ceftriaxone Sodium (Rocephin 1gm Ivpb (Pre-Docked)) 1 gm IVPB DAILY [facility] PRN Reason: Protocol Last Admin: 08/13/16 11:06 Dose: 1 gm Cholecalciferol (Vitamin D3 -) 1,000 unit PO DAILY [facility] Last Admin: 08/13/16 11:04 Dose: 1,000 unit Clopidogrel Bisulfate (Plavix -) 75 mg PO DAILY [facility] Last Admin: 08/13/16 11:04 Dose: 75 mg Enoxaparin Sodium (Lovenox -) 40 mg SQ DAILY [facility] Last Admin: 08/13/16 11:04 Dose: 40 mg Insulin Aspart (Novolog Vial Sliding Scale -) 0 vial SQ ACHS [facility] PRN Reason: Protocol Last Admin: 08/14/16 06:01 Dose: 5 units Losartan Potassium (Cozaar -) 100 mg PO DAILY [facility] Last Admin: 08/13/16 11:03 Dose: 100 mg Metformin HCl (Glucophage -) 1,000 mg PO BIDAC [facility] Last Admin: 08/14/16 06:00 Dose: Not Given Methylprednisolone Sodium Succinate (Solu-Medrol -) 40 mg IVPB Q6H-IV [facility] Last Admin: 08/14/16 02:40 Dose: 40 mg - Objective Vital Signs: Vital Signs Temperature 97.7 F 08/14/16 06:00 Pulse Rate 81 08/14/16 06:00 Respiratory Rate 20 08/14/16 06:00 Blood Pressure 117/55 08/14/16 06:00 O2 Sat by Pulse Oximetry (%) 95 08/13/16 21:00 Constitutional: Yes: Well Nourished, No Distress, Calm Cardiovascular: Yes: Regular Rate and Rhythm (decr'd sounds), S1, S2. No: Gallop, Murmur Respiratory: Yes: Regular, CTA Bilaterally (decr sounds diffusely). No: Accessory Muscle Use, Rales, Wheezes Extremities: No: Cold Edema: Yes (1+ ankles) Neurological: Yes: Alert, Oriented Psychiatric: No: Agitated Labs: INR, PTT INR 1.19 (0.82-1.09) H 08/12/16 14:11 - ....Imaging EKG: Other (tele: NSR with sinus tach) Assessment/Plan ecg 08/12/16: sr, old rbbb cta chest: no pe, no chf, +left infiltrates echo 04/2014: nl lv, rv tds, mod brian, mod mr, mod tr, rvsp 40-50, mild-mod , mod ar, ao root mild dilatation a/p: 76 m hx htn, copd on home 02, hld, dm, cad s/p remote mi/pci, remote aortic graft endo repair, here with sob. pna, copd: -sxs likely due to pna/copd, cont abx/steroids per pulm/pmd -sob improved with tx -abx, airways tx per pulm htn: -controlled -cont home meds hld: -cont home statin atypical chest pain, cad s/p remote mi/pci: -no signs acs, ce's neg x2 -current cp seems related to msk/pna, not suggestive of cardiac etiology -preserved LV fxn -cont home statin, arb, ccb, plavix -routine outpt f/u with dr kerr (cardio) mr, tr, ar, as: -moderate on prior echo, no signs of chf -repeat echo here pending h/o AAA endovasc repair: -outpt monitoring/followup (cirilo) NO ONGOING INDICATION FOR TELEMETRY MONITORING
--- NOTE | 2016-08-14 09:23 | EKG ---
Test Reason : Blood Pressure : / mmHG Vent. Rate : 086 BPM Atrial Rate : 086 BPM P-R Int : 000 ms QRS Dur : 150 ms QT Int : 432 ms P-R-T Axes : -06 -61 020 degrees QTc Int : 516 ms SINUS RHYTHM WITH 1ST DEGREE A-V BLOCK RIGHT BUNDLE BRANCH BLOCK LEFT ANTERIOR FASCICULAR BLOCK BIFASCICULAR BLOCK VOLTAGE CRITERIA FOR LEFT VENTRICULAR HYPERTROPHY CANNOT RULE OUT SEPTAL INFARCT (CITED ON OR BEFORE 12-AUG-2016) ABNORMAL ECG WHEN COMPARED WITH ECG OF 27-MAR-2015 21:10, QUESTIONABLE CHANGE IN INITIAL FORCES OF SEPTAL LEADS Confirmed by JASON YANEZ, SANA ([id number]) on 08/14/2016 9:22:22 AM Referred By: Confirmed By:SANA GOMEZ MD
--- NOTE | 2016-08-14 10:28 | PN ---
Progress Note (short form) - Note Progress Note: PULMONARY SITTING UP IN BED SUBJECTIVE IMPROVEMENT VSS/AFEBRILE PALE/ANICTERIC DIMINISHED B/L BREATH SOUNDS S1S2 RSR BS+ + B/L LOWER EXT EDEMA LABS/MEDS/CTA/MICRO/NOTES REVIEWED WBC'S INCREASING ? STEROID EFFECT CABP LIKELY MULTIPLE MEDICAL PROBLEMS LISTED NO EVIDENCE TO SUPPORT PE URINE AGS NEGATIVE/BLD CULT NO GROWTH THUS FAR CONTINUE ANTIBIOTICS/O2 SUPPLEMENTATION/BRONCHODILATION/ IV STEROIDS CHANGED TO 20MG Q8 GLYCEMIC CONTROL/DVT PROPHYLAXSIS WILL FOLLOW Xiomara MOORE MD
[2016-08-14] MEDS: LOSARTAN POTASSIUM 50 MG TABLET (FP) PO SCH (11:34)
[2016-08-14] MEDS: ENOXAPARIN NA (PORCINE) 40 MG/0.4 ML DISP.SYRIN SQ SCH (11:35)
[2016-08-14] MEDS: BUDESONIDE/FORMETEROL FUMARATE 160/4.5 mcg INHALER IH SCH ×2 (11:35→22:06)
[2016-08-14] MEDS: CHOLECALCIFEROL (VITAMIN D3) 1,000 UNIT TABLET (FP) PO SCH (11:35)
[2016-08-14] MEDS: cefTRIAXone 1 GM/50 ML BAG (PRE-DOCKED) IVPB SCH (11:35)
[2016-08-14] MEDS: CLOPIDOGREL BISULFATE 75 MG TABLET (FP) PO SCH (11:35)
[2016-08-14] MEDS: amLODIPine BESYLATE 5 MG TABLET (FP) PO SCH (11:35)
--- NOTE | 2016-08-14 11:35 | PN ---
Progress Note, Physician Chief Complaint: feels better with no recurrence of chest pain ; breathing improved. History of Present Illness: Patient with COPD, Infrarenal Aortic Aneurysm,CHF, Hypertension and Pneumonia is slowly improving with less chest pain and SOB. Uses nasal O2 around the clock and on IV steroids. WBC elevated most likely tdue to the steroids; on IV antibiotics. - Current Medication List Current Medications: Active Medications Acetaminophen (Tylenol -) 650 mg PO Q4H PRN PRN Reason: FEVER OR PAIN Albuterol Sulfate (Ventolin 0.083% Nebulizer Soln -) 1 amp NEB Q4H PRN PRN Reason: SHORT OF BREATH/WHEEZING Last Admin: 08/12/16 21:00 Dose: 1 amp Albuterol/Ipratropium (Duoneb -) 1 amp NEB QIDR [facility] Last Admin: 08/14/16 06:20 Dose: 1 amp Amlodipine Besylate (Norvasc -) 10 mg PO DAILY [facility] Last Admin: 08/13/16 11:04 Dose: 10 mg Atorvastatin Calcium (Lipitor -) 20 mg PO HS [facility] Last Admin: 08/13/16 21:48 Dose: 20 mg Azithromycin (Zithromax 500mg Ivpb (Pre-Docked)) 500 mg IVPB DAILY [facility] Last Admin: 08/13/16 09:15 Dose: 500 mg Budesonide/Formoterol Fumarate (Symbicort 160/4.5mcg -) 2 puff IH BID [facility] Last Admin: 08/13/16 23:10 Dose: 2 puff Ceftriaxone Sodium (Rocephin 1gm Ivpb (Pre-Docked)) 1 gm IVPB DAILY [facility] PRN Reason: Protocol Last Admin: 08/13/16 11:06 Dose: 1 gm Cholecalciferol (Vitamin D3 -) 1,000 unit PO DAILY [facility] Last Admin: 08/13/16 11:04 Dose: 1,000 unit Clopidogrel Bisulfate (Plavix -) 75 mg PO DAILY [facility] Last Admin: 08/13/16 11:04 Dose: 75 mg Enoxaparin Sodium (Lovenox -) 40 mg SQ DAILY [facility] Last Admin: 08/13/16 11:04 Dose: 40 mg Insulin Aspart (Novolog Vial Sliding Scale -) 0 vial SQ ACHS [facility] PRN Reason: Protocol Last Admin: 08/14/16 06:01 Dose: 5 units Losartan Potassium (Cozaar -) 100 mg PO DAILY [facility] Last Admin: 08/13/16 11:03 Dose: 100 mg Metformin HCl (Glucophage -) 1,000 mg PO BIDAC [facility] Last Admin: 08/14/16 06:00 Dose: Not Given Methylprednisolone Sodium Succinate (Solu-Medrol -) 20 mg IVPB Q8H-IV [facility] - Objective Vital Signs: Vital Signs Temperature 97.7 F 08/14/16 06:00 Pulse Rate 81 08/14/16 06:00 Respiratory Rate 20 08/14/16 06:00 Blood Pressure 117/55 08/14/16 06:00 O2 Sat by Pulse Oximetry (%) 95 08/13/16 21:00 Constitutional: Yes: Calm Eyes: Yes: Conjunctiva Clear Cardiovascular: Yes: Regular Rate and Rhythm Respiratory: Yes: Diminished, On Nasal O2. No: Rales, Wheezes Gastrointestinal: Yes: Soft, Distention Edema: LLE: 2+, RLE: 2+ Psychiatric: Yes: Alert, Oriented Labs: CBC, BMP 08/14/16 06:15 08/14/16 06:15 INR, PTT INR 1.19 (0.82-1.09) H 08/12/16 14:11 Problem List - Problems (1) Chest pain Assessment/Plan: Pleuritic component at home; Chest CTA negative for PE Pain not present now. Code(s): R07.9 - CHEST PAIN, UNSPECIFIED (2) Chronic diastolic (congestive) heart failure Assessment/Plan: Still with 2+ pedal edema Seen by Cardiology Code(s): I50.32 - CHRONIC DIASTOLIC (CONGESTIVE) HEART FAILURE (3) Chronic respiratory failure with hypoxia Assessment/Plan: Chronic with acute exacerbation; On IV antibiotics, steroids and Aerosol Rx. Code(s): J96.11 - CHRONIC RESPIRATORY FAILURE WITH HYPOXIA (4) Diabetes Assessment/Plan: Lab ordered. Code(s): E11.9 - TYPE 2 DIABETES MELLITUS WITHOUT COMPLICATIONS (5) HTN (hypertension) Assessment/Plan: BP 117/55 stable. Code(s): I10 - ESSENTIAL (PRIMARY) HYPERTENSION
[2016-08-14] MEDS ORDERED: INSULIN (NOVOLOG) ASPART 100 UNITS/ML 10ML VIAL ONE (12:09)
[2016-08-14] MEDS: AZITHROMYCIN IVPB 500 MG/250 ML D5W PRE-DOCKED IVPB SCH (12:14)
[2016-08-14] MEDS ORDERED: PT OWN MED DRAWER 7, Y5N ONE (21:54)
[2016-08-14] MEDS: ATORVASTATIN CA 20 MG TABLET (FP) PO SCH (22:04)
[2016-08-15] MEDS: methylPREDNISolone NA SUCC 40 MG/1 ML VIAL IVPB SCH ×2 (02:40→10:25)
[2016-08-15] MEDS ORDERED: PT OWN MED DRAWER 7, Y5N ONE ×3 (03:13→17:51)
[2016-08-15] MEDS: ALBUTEROL SO4 0.083% IH SOL 2.5 MG/3 ML VIAL.NEB. NEB PRN (03:35)
[2016-08-15] MEDS ORDERED: INSULIN (NOVOLOG) ASPART 100 UNITS/ML 10ML VIAL ONE ×2 (06:38→11:58)
[2016-08-15] MEDS: ALBUTEROL SO4 2.5/IPRATROPIUM 0.5 INH SOL 3 ML VIAL.NEB. NEB SCH ×4 (06:50→23:47)
[2016-08-15] MEDS: INSULIN SLIDING SCALE (NOVOLOG) 1 VIAL SQ SCH ×4 (07:05→21:05)
[2016-08-15] MEDS: metFORMIN HCL 500 MG TABLET (FP) PO SCH ×2 (07:05→17:39)
[2016-08-15 08:21] LABS: BASOPHIL 0.2 % (0-2.0); MCH 28.9 pg (25.7-33.7); MCHC 32.9 g/dl (32.0-35.9); MEAN CELL VOLUME 87.7 fl (80-96); MEAN PLT VOLUME 7.5 fl (7.5-11.1); NEUTROPHILS 95.7 % (42.8-82.8); PLATELET COUNT 451 K/MM3 (134-434); RDW 14.9 % (11.9-15.9)
[2016-08-15 08:22] LABS: CALCIUM 9.3 mg/dL (8.5-10.1)
[2016-08-15 08:24] LABS: COCKROFT - GAULT 57.67; CREATININE 1.2 mg/dL (0.7-1.3)
--- NOTE | 2016-08-15 09:16 | PN ---
Progress Note, Physician Chief Complaint: sob, cp, PNA History of Present Illness: breathing feels better legs swell at home sometimes--slightly more here no cp no dizzy - Current Medication List Current Medications: Active Medications Acetaminophen (Tylenol -) 650 mg PO Q4H PRN PRN Reason: FEVER OR PAIN Albuterol Sulfate (Ventolin 0.083% Nebulizer Soln -) 1 amp NEB Q4H PRN PRN Reason: SHORT OF BREATH/WHEEZING Last Admin: 08/15/16 03:35 Dose: 1 amp Albuterol/Ipratropium (Duoneb -) 1 amp NEB QIDR [facility] Last Admin: 08/15/16 06:50 Dose: 1 amp Amlodipine Besylate (Norvasc -) 10 mg PO DAILY [facility] Last Admin: 08/14/16 11:35 Dose: 10 mg Atorvastatin Calcium (Lipitor -) 20 mg PO HS [facility] Last Admin: 08/14/16 22:04 Dose: 20 mg Azithromycin (Zithromax 500mg Ivpb (Pre-Docked)) 500 mg IVPB DAILY [facility] Last Admin: 08/14/16 12:14 Dose: 500 mg Budesonide/Formoterol Fumarate (Symbicort 160/4.5mcg -) 2 puff IH BID [facility] Last Admin: 08/14/16 22:06 Dose: 2 puff Ceftriaxone Sodium (Rocephin 1gm Ivpb (Pre-Docked)) 1 gm IVPB DAILY [facility] PRN Reason: Protocol Last Admin: 08/14/16 11:35 Dose: 1 gm Cholecalciferol (Vitamin D3 -) 1,000 unit PO DAILY [facility] Last Admin: 08/14/16 11:35 Dose: 1,000 unit Clopidogrel Bisulfate (Plavix -) 75 mg PO DAILY [facility] Last Admin: 08/14/16 11:35 Dose: 75 mg Enoxaparin Sodium (Lovenox -) 40 mg SQ DAILY [facility] Last Admin: 08/14/16 11:35 Dose: 40 mg Insulin Aspart (Novolog Vial Sliding Scale -) 0 vial SQ ACHS [facility] PRN Reason: Protocol Last Admin: 08/15/16 07:05 Dose: Not Given Losartan Potassium (Cozaar -) 100 mg PO DAILY [facility] Last Admin: 08/14/16 11:34 Dose: 100 mg Metformin HCl (Glucophage -) 1,000 mg PO BIDAC [facility] Last Admin: 08/15/16 07:05 Dose: Not Given Methylprednisolone Sodium Succinate (Solu-Medrol -) 20 mg IVPB Q8H-IV [facility] Last Admin: 08/15/16 02:40 Dose: 20 mg - Objective Vital Signs: Vital Signs Temperature 98.7 F 08/15/16 06:00 Pulse Rate 89 08/15/16 06:00 Respiratory Rate 18 08/15/16 06:00 Blood Pressure 125/69 08/15/16 06:00 O2 Sat by Pulse Oximetry (%) 93 L 08/14/16 22:00 Constitutional: Yes: Well Nourished, No Distress, Calm Cardiovascular: Yes: Regular Rate and Rhythm (decr intensity), S1, S2. No: Gallop, Murmur Respiratory: Yes: Regular, CTA Bilaterally (decr diffusely). No: Accessory Muscle Use, Rales, Wheezes Extremities: No: Cold Edema: Yes (2-3+ ankles) Neurological: Yes: Alert, Oriented Psychiatric: No: Agitated Labs: CBC, BMP 08/15/16 06:00 08/15/16 06:00 INR, PTT INR 1.19 (0.82-1.09) H 08/12/16 14:11 Assessment/Plan ecg 08/12/16: sr, old rbbb cta chest: no pe, no chf, +left infiltrates echo 04/2014: nl lv, rv tds, mod brian, mod mr, mod tr, rvsp 40-50, mild-mod , mod ar, ao root mild dilatation a/p: 76 m hx htn, copd on home 02, hld, dm, cad s/p remote mi/pci, remote aortic graft endo repair, here with sob. pna, copd: -sxs likely due to pna/copd, cont abx/steroids per pulm/pmd -sob improved with tx -abx, airways tx per pulm htn: -controlled -cont home meds hld: -cont home statin atypical chest pain, cad s/p remote mi/pci: -no signs acs, ce's neg x2 -current cp seems related to msk/pna, not suggestive of cardiac etiology -preserved LV fxn -cont home statin, arb, ccb, plavix -routine outpt f/u with dr kerr (cardio) mr, tr, ar, as: -moderate on prior echo, no signs of chf -repeat echo here pending h/o AAA endovasc repair: -outpt monitoring/followup (cirilo) edema: -h/o intermittent pedal edema with prn lasix use at home, per pt -likely venous ins'y, prob exacerbated here by steroids use -lasix 40 po daily to start today--would stop it once edema resolves
[2016-08-15] MEDS: amLODIPine BESYLATE 5 MG TABLET (FP) PO SCH (10:24)
[2016-08-15] MEDS: LOSARTAN POTASSIUM 50 MG TABLET (FP) PO SCH (10:24)
[2016-08-15] MEDS: CLOPIDOGREL BISULFATE 75 MG TABLET (FP) PO SCH (10:25)
[2016-08-15] MEDS: CHOLECALCIFEROL (VITAMIN D3) 1,000 UNIT TABLET (FP) PO SCH (10:25)
[2016-08-15] MEDS: FUROSEMIDE 40 MG TABLET (FP) PO SCH (10:25)
[2016-08-15] MEDS: ENOXAPARIN NA (PORCINE) 40 MG/0.4 ML DISP.SYRIN SQ SCH (10:25)
[2016-08-15] MEDS: cefTRIAXone 1 GM/50 ML BAG (PRE-DOCKED) IVPB SCH (10:28)
[2016-08-15] MEDS: BUDESONIDE/FORMETEROL FUMARATE 160/4.5 mcg INHALER IH SCH ×2 (10:28→21:08)
[2016-08-15] MEDS: AZITHROMYCIN IVPB 500 MG/250 ML D5W PRE-DOCKED IVPB SCH (10:33)
--- NOTE | 2016-08-15 12:44 | PN ---
Progress Note, Physician Chief Complaint: I feel less chest pain when I breathe. History of Present Illness: Patient sitting at bedside confirms that he continues to improve well less pleuritic pain and less SOB but still sedentary. Seen by Cardiology and Pulmonary MD's. Pulmonary MD suggested oral steroids but not ordered yet. O2 Sat 95 on 3L O2 nasal catheter - Current Medication List Current Medications: Active Medications Acetaminophen (Tylenol -) 650 mg PO Q4H PRN PRN Reason: FEVER OR PAIN Albuterol Sulfate (Ventolin 0.083% Nebulizer Soln -) 1 amp NEB Q4H PRN PRN Reason: SHORT OF BREATH/WHEEZING Last Admin: 08/15/16 03:35 Dose: 1 amp Albuterol/Ipratropium (Duoneb -) 1 amp NEB QIDR [facility] Last Admin: 08/15/16 06:50 Dose: 1 amp Amlodipine Besylate (Norvasc -) 10 mg PO DAILY [facility] Last Admin: 08/15/16 10:24 Dose: 10 mg Atorvastatin Calcium (Lipitor -) 20 mg PO HS [facility] Last Admin: 08/14/16 22:04 Dose: 20 mg Azithromycin (Zithromax 500mg Ivpb (Pre-Docked)) 500 mg IVPB DAILY [facility] Last Admin: 08/15/16 10:33 Dose: 500 mg Budesonide/Formoterol Fumarate (Symbicort 160/4.5mcg -) 2 puff IH BID [facility] Last Admin: 08/15/16 10:28 Dose: 2 puff Ceftriaxone Sodium (Rocephin 1gm Ivpb (Pre-Docked)) 1 gm IVPB DAILY [facility] PRN Reason: Protocol Last Admin: 08/15/16 10:28 Dose: 1 gm Cholecalciferol (Vitamin D3 -) 1,000 unit PO DAILY [facility] Last Admin: 08/15/16 10:25 Dose: 1,000 unit Clopidogrel Bisulfate (Plavix -) 75 mg PO DAILY [facility] Last Admin: 08/15/16 10:25 Dose: 75 mg Enoxaparin Sodium (Lovenox -) 40 mg SQ DAILY [facility] Last Admin: 08/15/16 10:25 Dose: 40 mg Furosemide (Lasix -) 40 mg PO DAILY [facility] Last Admin: 08/15/16 10:25 Dose: 40 mg Insulin Aspart (Novolog Vial Sliding Scale -) 0 vial SQ ACHS [facility] PRN Reason: Protocol Last Admin: 08/15/16 12:01 Dose: 7 units Losartan Potassium (Cozaar -) 100 mg PO DAILY [facility] Last Admin: 08/15/16 10:24 Dose: 100 mg Metformin HCl (Glucophage -) 1,000 mg PO BIDAC [facility] Last Admin: 08/15/16 07:05 Dose: Not Given Methylprednisolone Sodium Succinate (Solu-Medrol -) 20 mg IVPB Q8H-IV [facility] Last Admin: 08/15/16 10:25 Dose: 20 mg - Objective Vital Signs: Vital Signs Temperature 98.4 F 08/15/16 10:00 Pulse Rate 87 08/15/16 10:00 Respiratory Rate 18 08/15/16 10:00 Blood Pressure 133/74 08/15/16 10:00 O2 Sat by Pulse Oximetry (%) 95 08/15/16 10:00 Constitutional: Yes: Calm. No: Mild Distress Cardiovascular: Yes: Regular Rate and Rhythm Respiratory: Yes: Diminished. No: Rales (eft base) Gastrointestinal: Yes: Soft. No: Tenderness Edema: LLE: 3+, RLE: 3+ Psychiatric: Yes: Alert, Oriented Labs: CBC, BMP 08/15/16 06:00 08/15/16 06:00 INR, PTT INR 1.19 (0.82-1.09) H 08/12/16 14:11 Problem List - Problems (1) Chest pain Assessment/Plan: Pleuritic pain due to pneumonia with Neg CTA scan for PE is improved. Code(s): R07.9 - CHEST PAIN, UNSPECIFIED (2) Chronic diastolic (congestive) heart failure Assessment/Plan: Still has 3+ pedal edema but siting up all AM. On Lasix and ARB Code(s): I50.32 - CHRONIC DIASTOLIC (CONGESTIVE) HEART FAILURE (3) Chronic respiratory failure with hypoxia Assessment/Plan: Needs to have O2 at home and worsened b admission for pulmonary infiltrate. Code(s): J96.11 - CHRONIC RESPIRATORY FAILURE WITH HYPOXIA (4) Diabetes Assessment/Plan: BGM 345 with HBA1C 7.4 On Metformin Code(s): E11.9 - TYPE 2 DIABETES MELLITUS WITHOUT COMPLICATIONS Qualifiers: Diabetes mellitus type: type 2 (5) HTN (hypertension) Assessment/Plan: On Rx. Code(s): I10 - ESSENTIAL (PRIMARY) HYPERTENSION
[2016-08-15] MEDS: predniSONE 20 MG TABLET (UD) PO SCH ×2 (14:16→21:06)
[2016-08-15] MEDS: ALPRAZolam 0.25 MG TABLET PO PRN ×2 (14:16→21:06)
[2016-08-15] MEDS: ATORVASTATIN CA 20 MG TABLET (FP) PO SCH (21:16)
[2016-08-16] MEDS: predniSONE 20 MG TABLET (UD) PO SCH ×3 (05:54→21:18)
[2016-08-16] MEDS: metFORMIN HCL 500 MG TABLET (FP) PO SCH ×2 (05:59→17:33)
[2016-08-16] MEDS: INSULIN SLIDING SCALE (NOVOLOG) 1 VIAL SQ SCH ×4 (05:59→21:58)
[2016-08-16] MEDS: ALBUTEROL SO4 2.5/IPRATROPIUM 0.5 INH SOL 3 ML VIAL.NEB. NEB SCH ×3 (06:26→18:31)
[2016-08-16 06:34] LABS: MCH 28.7 pg (25.7-33.7); MCHC 32.4 g/dl (32.0-35.9); MEAN CELL VOLUME 88.6 fl (80-96); MEAN PLT VOLUME 7.4 fl (7.5-11.1); PLATELET COUNT 446 K/MM3 (134-434); RDW 15.1 % (11.9-15.9); WHITE BLOOD COUNT 14.9 K/mm3 (4.0-10.0)
[2016-08-16 06:56] LABS: COCKROFT - GAULT 58.9; CREATININE 1.3 mg/dL (0.7-1.3)
[2016-08-16] MEDS: AZITHROMYCIN IVPB 500 MG/250 ML D5W PRE-DOCKED IVPB SCH (09:46)
[2016-08-16] MEDS: CHOLECALCIFEROL (VITAMIN D3) 1,000 UNIT TABLET (FP) PO SCH (09:49)
[2016-08-16] MEDS: amLODIPine BESYLATE 5 MG TABLET (FP) PO SCH (09:49)
[2016-08-16] MEDS: CLOPIDOGREL BISULFATE 75 MG TABLET (FP) PO SCH (09:49)
[2016-08-16] MEDS: FUROSEMIDE 40 MG TABLET (FP) PO SCH (09:49)
[2016-08-16] MEDS: BUDESONIDE/FORMETEROL FUMARATE 160/4.5 mcg INHALER IH SCH ×2 (09:50→21:19)
[2016-08-16] MEDS: LOSARTAN POTASSIUM 50 MG TABLET (FP) PO SCH (09:50)
[2016-08-16] MEDS: ENOXAPARIN NA (PORCINE) 40 MG/0.4 ML DISP.SYRIN SQ SCH (09:50)
[2016-08-16] MEDS: ALPRAZolam 0.25 MG TABLET PO PRN ×2 (09:54→21:18)
[2016-08-16] MEDS: cefTRIAXone 1 GM/50 ML BAG (PRE-DOCKED) IVPB SCH (10:05)
--- NOTE | 2016-08-16 12:02 | PN ---
Progress Note, Physician Chief Complaint: sob/cp, edema History of Present Illness: breathing remains improved no cp feet still swollen no palpitations - Current Medication List Current Medications: Active Medications Acetaminophen (Tylenol -) 650 mg PO Q4H PRN PRN Reason: FEVER OR PAIN Albuterol Sulfate (Ventolin 0.083% Nebulizer Soln -) 1 amp NEB Q4H PRN PRN Reason: SHORT OF BREATH/WHEEZING Last Admin: 08/15/16 03:35 Dose: 1 amp Albuterol/Ipratropium (Duoneb -) 1 amp NEB QIDR [facility] Last Admin: 08/16/16 11:56 Dose: 1 amp Alprazolam (Xanax -) 0.25 mg PO BID PRN Last Admin: 08/16/16 09:54 Dose: 0.25 mg Amlodipine Besylate (Norvasc -) 10 mg PO DAILY [facility] Last Admin: 08/16/16 09:49 Dose: 10 mg Atorvastatin Calcium (Lipitor -) 20 mg PO HS [facility] Last Admin: 08/15/16 21:16 Dose: 20 mg Azithromycin (Zithromax 500mg Ivpb (Pre-Docked)) 500 mg IVPB DAILY [facility] Last Admin: 08/16/16 09:46 Dose: 500 mg Budesonide/Formoterol Fumarate (Symbicort 160/4.5mcg -) 2 puff IH BID [facility] Last Admin: 08/16/16 09:50 Dose: 2 puff Ceftriaxone Sodium (Rocephin 1gm Ivpb (Pre-Docked)) 1 gm IVPB DAILY [facility] PRN Reason: Protocol Last Admin: 08/16/16 10:05 Dose: 1 gm Cholecalciferol (Vitamin D3 -) 1,000 unit PO DAILY [facility] Last Admin: 08/16/16 09:49 Dose: 1,000 unit Clopidogrel Bisulfate (Plavix -) 75 mg PO DAILY [facility] Last Admin: 08/16/16 09:49 Dose: 75 mg Enoxaparin Sodium (Lovenox -) 40 mg SQ DAILY [facility] Last Admin: 08/16/16 09:50 Dose: 40 mg Furosemide (Lasix -) 40 mg PO DAILY [facility] Last Admin: 08/16/16 09:49 Dose: 40 mg Insulin Aspart (Novolog Vial Sliding Scale -) 0 vial SQ ACHS [facility] PRN Reason: Protocol Last Admin: 08/16/16 05:59 Dose: 5 units Losartan Potassium (Cozaar -) 100 mg PO DAILY [facility] Last Admin: 08/16/16 09:50 Dose: 100 mg Metformin HCl (Glucophage -) 1,000 mg PO BIDAC [facility] Last Admin: 08/16/16 05:59 Dose: 1,000 mg Prednisone (Deltasone -) 20 mg PO TID [facility] Last Admin: 08/16/16 05:54 Dose: 20 mg - Objective Vital Signs: Vital Signs Temperature 97.6 F 08/16/16 09:50 Pulse Rate 86 08/16/16 11:57 Respiratory Rate 18 08/16/16 09:50 Blood Pressure 119/66 08/16/16 09:50 O2 Sat by Pulse Oximetry (%) 96 08/16/16 11:57 Constitutional: Yes: Well Nourished, No Distress, Calm Cardiovascular: Yes: Regular Rate and Rhythm (soft sounds), S1, S2. No: Gallop , Murmur Respiratory: Yes: Regular, CTA Bilaterally (sounds decr'd diffusely). No: Accessory Muscle Use, Rales, Wheezes Extremities: No: Cold Edema: Yes (3+ ankles) Neurological: Yes: Alert, Oriented Psychiatric: No: Agitated Labs: CBC, BMP 08/16/16 05:36 08/16/16 05:36 INR, PTT INR 1.19 (0.82-1.09) H 08/12/16 14:11 Assessment/Plan ecg 08/12/16: sr, old rbbb cta chest: no pe, no chf, +left infiltrates echo 04/2014: nl lv, rv tds, mod brian, mod mr, mod tr, rvsp 40-50, mild-mod , mod ar, ao root mild dilatation a/p: 76 m hx htn, copd on home 02, hld, dm, cad s/p remote mi/pci, remote aortic graft endo repair, here with sob. pna, copd: -sxs likely due to pna/copd, cont abx/steroids per pulm/pmd -sob improved with tx -abx, airways tx per pulm htn: -controlled -cont home meds hld: -cont home statin atypical chest pain, cad s/p remote mi/pci: -no signs acs, ce's neg x2 -current cp seems related to msk/pna, not suggestive of cardiac etiology -preserved LV fxn -cont home statin, arb, ccb, plavix -routine outpt f/u with dr kerr (cardio) mr, tr, ar, as: -moderate on prior echo, no signs of chf -repeat echo here pending h/o AAA endovasc repair: -outpt monitoring/followup (cirilo) edema: -h/o intermittent pedal edema with prn lasix (20mg) use at home, per pt -likely venous ins'y, prob exacerbated here by steroids use -lasix 40 po daily to start today--would stop it once edema resolves
--- NOTE | 2016-08-16 12:03 | PN ---
Progress Note, Physician History of Present Illness: PULMONARY ALERT,FEELING BETTER,OOB CHAIR,LESS DYSPNEIC - Current Medication List Current Medications: Active Medications Acetaminophen (Tylenol -) 650 mg PO Q4H PRN PRN Reason: FEVER OR PAIN Albuterol Sulfate (Ventolin 0.083% Nebulizer Soln -) 1 amp NEB Q4H PRN PRN Reason: SHORT OF BREATH/WHEEZING Last Admin: 08/15/16 03:35 Dose: 1 amp Albuterol/Ipratropium (Duoneb -) 1 amp NEB QIDR [facility] Last Admin: 08/16/16 11:56 Dose: 1 amp Alprazolam (Xanax -) 0.25 mg PO BID [facility] Last Admin: 08/16/16 09:54 Dose: 0.25 mg Amlodipine Besylate (Norvasc -) 10 mg PO DAILY [facility] Last Admin: 08/16/16 09:49 Dose: 10 mg Atorvastatin Calcium (Lipitor -) 20 mg PO HS [facility] Last Admin: 08/15/16 21:16 Dose: 20 mg Azithromycin (Zithromax 500mg Ivpb (Pre-Docked)) 500 mg IVPB DAILY [facility] Last Admin: 08/16/16 09:46 Dose: 500 mg Budesonide/Formoterol Fumarate (Symbicort 160/4.5mcg -) 2 puff IH BID [facility] Last Admin: 08/16/16 09:50 Dose: 2 puff Ceftriaxone Sodium (Rocephin 1gm Ivpb (Pre-Docked)) 1 gm IVPB DAILY [facility] PRN Reason: Protocol Last Admin: 08/16/16 10:05 Dose: 1 gm Cholecalciferol (Vitamin D3 -) 1,000 unit PO DAILY [facility] Last Admin: 08/16/16 09:49 Dose: 1,000 unit Clopidogrel Bisulfate (Plavix -) 75 mg PO DAILY [facility] Last Admin: 08/16/16 09:49 Dose: 75 mg Enoxaparin Sodium (Lovenox -) 40 mg SQ DAILY [facility] Last Admin: 08/16/16 09:50 Dose: 40 mg Furosemide (Lasix -) 40 mg PO DAILY [facility] Last Admin: 08/16/16 09:49 Dose: 40 mg Insulin Aspart (Novolog Vial Sliding Scale -) 0 vial SQ ACHS [facility] PRN Reason: Protocol Last Admin: 08/16/16 05:59 Dose: 5 units Losartan Potassium (Cozaar -) 100 mg PO DAILY [facility] Last Admin: 08/16/16 09:50 Dose: 100 mg Metformin HCl (Glucophage -) 1,000 mg PO BIDAC [facility] Last Admin: 08/16/16 05:59 Dose: 1,000 mg Prednisone (Deltasone -) 20 mg PO TID [facility] Last Admin: 08/16/16 05:54 Dose: 20 mg - Objective Vital Signs: Vital Signs Temperature 97.6 F 08/16/16 09:50 Pulse Rate 86 08/16/16 11:57 Respiratory Rate 18 08/16/16 09:50 Blood Pressure 119/66 08/16/16 09:50 O2 Sat by Pulse Oximetry (%) 96 08/16/16 11:57 Constitutional: Yes: Well Nourished, Calm Eyes: Yes: WNL HENT: Yes: WNL Neck: Yes: Supple Cardiovascular: Yes: Regular Rate and Rhythm, S1, S2 Respiratory: Yes: Diminished Gastrointestinal: Yes: Normal Bowel Sounds, Soft Extremities: Yes: WNL Edema: Yes Labs: CBC, BMP 08/16/16 05:36 08/16/16 05:36 INR, PTT INR 1.19 (0.82-1.09) H 08/12/16 14:11 Assessment/Plan Problem List - Problems (1) Chest pain Code(s): R07.9 - CHEST PAIN, UNSPECIFIED (2) COPD (chronic obstructive pulmonary disease) Code(s): J44.9 - CHRONIC OBSTRUCTIVE PULMONARY DISEASE, UNSPECIFIED (3) Chronic respiratory failure with hypoxia Code(s): J96.11 - CHRONIC RESPIRATORY FAILURE WITH HYPOXIA (4) Elevated liver enzymes Code(s): R74.8 - ABNORMAL LEVELS OF OTHER SERUM ENZYMES (5) Chronic diastolic (congestive) heart failure Code(s): I50.32 - CHRONIC DIASTOLIC (CONGESTIVE) HEART FAILURE (6) Pulmonary hypertension Code(s): I27.2 - OTHER SECONDARY PULMONARY HYPERTENSION Assessment/Plan Chest Pain improved r/o Pneumonia vs Lung Mass Severe COPD Emphysema LV Diastolic Dysfunction Pulmonary HTN Elevated LFTs - empiric antibiotics - inhaled bronchodilators - trend LFTs - O2 to keep SPo2 >90% - DVT prophylaxis - Chest x-ray DR LOUISE
[2016-08-16] MEDS ORDERED: INSULIN (NOVOLOG) ASPART 100 UNITS/ML 10ML VIAL ONE (12:18)
[2016-08-16 12:31] LABS: ALBUMIN 2.6 g/dl (3.4-5.0); BILIRUBIN,DIRECT 0.2 mg/dL (0.0-0.2)
[2016-08-16 12:33] LABS: BILIRUBIN,TOTAL 0.4 mg/dL (0.2-1.0); TOT PROT 6.1 g/dl (6.4-8.2)
[2016-08-16] MEDS ORDERED: SODIUM POLYSTYRENE SULFONATE 15 GM/60 ML BOTTLE PO ONE (13:45)
--- NOTE | 2016-08-16 13:46 | PN ---
Progress Note, Physician Chief Complaint: Mr Varma says he is feeling better. No longer short of breath, chest pain has resolved. Denies nausea/vomiting. - Current Medication List Current Medications: Active Medications Acetaminophen (Tylenol -) 650 mg PO Q4H PRN PRN Reason: FEVER OR PAIN Albuterol Sulfate (Ventolin 0.083% Nebulizer Soln -) 1 amp NEB Q4H PRN PRN Reason: SHORT OF BREATH/WHEEZING Last Admin: 08/15/16 03:35 Dose: 1 amp Albuterol/Ipratropium (Duoneb -) 1 amp NEB QIDR [facility] Last Admin: 08/16/16 11:56 Dose: 1 amp Alprazolam (Xanax -) 0.25 mg PO BID [facility] Last Admin: 08/16/16 09:54 Dose: 0.25 mg Amlodipine Besylate (Norvasc -) 10 mg PO DAILY [facility] Last Admin: 08/16/16 09:49 Dose: 10 mg Atorvastatin Calcium (Lipitor -) 20 mg PO HS [facility] Last Admin: 08/15/16 21:16 Dose: 20 mg Azithromycin (Zithromax 500mg Ivpb (Pre-Docked)) 500 mg IVPB DAILY [facility] Last Admin: 08/16/16 09:46 Dose: 500 mg Budesonide/Formoterol Fumarate (Symbicort 160/4.5mcg -) 2 puff IH BID [facility] Last Admin: 08/16/16 09:50 Dose: 2 puff Ceftriaxone Sodium (Rocephin 1gm Ivpb (Pre-Docked)) 1 gm IVPB DAILY [facility] PRN Reason: Protocol Last Admin: 08/16/16 10:05 Dose: 1 gm Cholecalciferol (Vitamin D3 -) 1,000 unit PO DAILY [facility] Last Admin: 08/16/16 09:49 Dose: 1,000 unit Clopidogrel Bisulfate (Plavix -) 75 mg PO DAILY [facility] Last Admin: 08/16/16 09:49 Dose: 75 mg Enoxaparin Sodium (Lovenox -) 40 mg SQ DAILY [facility] Last Admin: 08/16/16 09:50 Dose: 40 mg Furosemide (Lasix -) 40 mg PO DAILY [facility] Last Admin: 08/16/16 09:49 Dose: 40 mg Insulin Aspart (Novolog Vial Sliding Scale -) 0 vial SQ ACHS [facility] PRN Reason: Protocol Last Admin: 08/16/16 12:21 Dose: 5 units Losartan Potassium (Cozaar -) 100 mg PO DAILY [facility] Last Admin: 08/16/16 09:50 Dose: 100 mg Metformin HCl (Glucophage -) 1,000 mg PO BIDAC [facility] Last Admin: 08/16/16 05:59 Dose: 1,000 mg Prednisone (Deltasone -) 20 mg PO TID [facility] Last Admin: 08/16/16 05:54 Dose: 20 mg Sodium Polystyrene Sulfonate (Kayexalate -) 15 gm PO ONCE ONE Stop: 08/16/16 13:46 - Objective Vital Signs: Vital Signs Temperature 97.6 F 08/16/16 09:50 Pulse Rate 86 08/16/16 11:57 Respiratory Rate 18 08/16/16 09:50 Blood Pressure 119/66 08/16/16 09:50 O2 Sat by Pulse Oximetry (%) 96 08/16/16 11:57 Constitutional: Yes: Well Nourished, No Distress, Calm Cardiovascular: Yes: Regular Rate and Rhythm. No: Gallop, Murmur, Rub Respiratory: Yes: Regular, CTA Bilaterally, On Nasal O2. No: Rales, Rhonchi, Wheezes Gastrointestinal: Yes: Normal Bowel Sounds, Soft. No: Distention, Tenderness Extremities: Yes: WNL Edema: Yes Edema: LLE: 2+, RLE: 2+ Labs: CBC, BMP 08/16/16 05:36 08/16/16 05:36 INR, PTT INR 1.19 (0.82-1.09) H 08/12/16 14:11 Problem List - Problems (1) Pneumonia Code(s): J18.9 - PNEUMONIA, UNSPECIFIED ORGANISM (2) Chest pain Code(s): R07.9 - CHEST PAIN, UNSPECIFIED (3) Chronic diastolic (congestive) heart failure Code(s): I50.32 - CHRONIC DIASTOLIC (CONGESTIVE) HEART FAILURE (4) COPD (chronic obstructive pulmonary disease) Code(s): J44.9 - CHRONIC OBSTRUCTIVE PULMONARY DISEASE, UNSPECIFIED Qualifiers : COPD type: COPD with acute exacerbation Qualified Code(s): J44.1 - Chronic obstructive pulmonary disease with (acute) exacerbation (5) HTN (hypertension) Code(s): I10 - ESSENTIAL (PRIMARY) HYPERTENSION (6) HLD (hyperlipidemia) Code(s): E78.5 - HYPERLIPIDEMIA, UNSPECIFIED (7) Diabetes Code(s): E11.9 - TYPE 2 DIABETES MELLITUS WITHOUT COMPLICATIONS Qualifiers: Diabetes mellitus type: type 2 Assessment/Plan (1) Pneumonia Assessment/Plan: -CT scan of the chest showing infiltrates consistent with pneumonia -continue rocephin and zithromax day 5 -can stop zithromax today Code(s): J18.9 - PNEUMONIA, UNSPECIFIED ORGANISM (2) Chest pain Assessment/Plan: -resolved -pleurisy secondary to pneumonia Code(s): R07.9 - CHEST PAIN, UNSPECIFIED (3) Chronic diastolic (congestive) heart failure Assessment/Plan: -with edema -daughter says similar to home, but normally wears compression stockings -cardiology following, giving dose of lasix Code(s): I50.32 - CHRONIC DIASTOLIC (CONGESTIVE) HEART FAILURE (4) COPD (chronic obstructive pulmonary disease) Assessment/Plan: -pulmonary following -on prednisone -continue duonebs -prednisone causing leukocytosis Code(s): J44.9 - CHRONIC OBSTRUCTIVE PULMONARY DISEASE, UNSPECIFIED Qualifiers : COPD type: COPD with acute exacerbation Qualified Code(s): J44.1 - Chronic obstructive pulmonary disease with (acute) exacerbation (5) HTN (hypertension) Assessment/Plan: -continue home regimen Code(s): I10 - ESSENTIAL (PRIMARY) HYPERTENSION (6) HLD (hyperlipidemia) Assessment/Plan: -continue lipitor Code(s): E78.5 - HYPERLIPIDEMIA, UNSPECIFIED (7) Diabetes -continue diabetic diet -continue metformin and SSI -hyperglycemia secondary to steroids
[2016-08-16] MEDS: ATORVASTATIN CA 20 MG TABLET (FP) PO SCH (21:18)
[2016-08-17] MEDS: metFORMIN HCL 500 MG TABLET (FP) PO SCH ×2 (06:08→17:12)
[2016-08-17] MEDS: predniSONE 20 MG TABLET (UD) PO SCH (06:08)
[2016-08-17] MEDS: INSULIN SLIDING SCALE (NOVOLOG) 1 VIAL SQ SCH ×4 (06:09→21:59)
[2016-08-17] MEDS: ALBUTEROL SO4 2.5/IPRATROPIUM 0.5 INH SOL 3 ML VIAL.NEB. NEB SCH ×5 (06:35→23:05)
[2016-08-17 07:06] LABS: MCH 28.9 pg (25.7-33.7); MCHC 32.5 g/dl (32.0-35.9); MEAN CELL VOLUME 88.9 fl (80-96); MEAN PLT VOLUME 7.7 fl (7.5-11.1); PLATELET COUNT 436 K/MM3 (134-434); WHITE BLOOD COUNT 14.9 K/mm3 (4.0-10.0)
[2016-08-17 07:42] LABS: CALCIUM 8.5 mg/dL (8.5-10.1); COCKROFT - GAULT 72.07; CREATININE 1.1 mg/dL (0.7-1.3); MAGNESIUM 1.8 mg/dL (1.8-2.4); PHOSPHOROUS 3.7 mg/dL (2.5-4.9)
[2016-08-17] MEDS ORDERED: amLODIPine BESYLATE 5 MG TABLET (FP) PO SCH (10:00)
--- NOTE | 2016-08-17 10:12 | PN ---
Progress Note (short form) - Note Progress Note: Chief Complaint: sob/cp, edema History of Present Illness: breathing remains improved, but still states he feels he is not getting enough oxygen. Complaining of difficulty swallowing unclear if from sensation of breathlessness or true dysphagia. no cp, no palpitations. no dizziness. LE edema stable. Current Medications Acetaminophen (Tylenol -) 650 mg PO Q4H PRN PRN Reason: FEVER OR PAIN Albuterol Sulfate (Ventolin 0.083% Nebulizer Soln -) 1 amp NEB Q4H PRN PRN Reason: SHORT OF BREATH/WHEEZING Last Admin: 08/15/16 03:35 Dose: 1 amp Albuterol/Ipratropium (Duoneb -) 1 amp NEB QIDR [facility] Last Admin: 08/17/16 06:35 Dose: 1 amp Alprazolam (Xanax -) 0.25 mg PO BID [facility] Last Admin: 08/16/16 21:18 Dose: 0.25 mg Amlodipine Besylate (Norvasc -) 5 mg PO DAILY [facility] Atorvastatin Calcium (Lipitor -) 20 mg PO HS [facility] Last Admin: 08/16/16 21:18 Dose: 20 mg Budesonide/Formoterol Fumarate (Symbicort 160/4.5mcg -) 2 puff IH BID [facility] Last Admin: 08/16/16 21:19 Dose: 2 puff Ceftriaxone Sodium (Rocephin 1gm Ivpb (Pre-Docked)) 1 gm IVPB DAILY [facility] PRN Reason: Protocol Last Admin: 08/16/16 10:05 Dose: 1 gm Cholecalciferol (Vitamin D3 -) 1,000 unit PO DAILY [facility] Last Admin: 08/16/16 09:49 Dose: 1,000 unit Clopidogrel Bisulfate (Plavix -) 75 mg PO DAILY [facility] Last Admin: 08/16/16 09:49 Dose: 75 mg Enoxaparin Sodium (Lovenox -) 40 mg SQ DAILY [facility] Last Admin: 08/16/16 09:50 Dose: 40 mg Insulin Aspart (Novolog Vial Sliding Scale -) 0 vial SQ ACHS [facility] PRN Reason: Protocol Last Admin: 08/17/16 06:09 Dose: 3 units Losartan Potassium (Cozaar -) 50 mg PO DAILY [facility] Metformin HCl (Glucophage -) 1,000 mg PO BIDAC [facility] Last Admin: 08/17/16 06:08 Dose: 1,000 mg Prednisone (Deltasone -) 20 mg PO TID [facility] Last Admin: 08/17/16 06:08 Dose: 20 mg Vital Signs - 24 hr 08/16/16 08/16/16 08/16/16 11:56 11:57 13:00 Temperature 97.9 F Pulse Rate 86 86 79 Respiratory 18 Rate Blood Pressure 135/74 O2 Sat by Pulse 96 96 Oximetry (%) 08/16/16 08/16/16 08/16/16 18:00 21:00 22:00 Temperature 98.2 F 98.0 F Pulse Rate 80 88 Respiratory 18 18 18 Rate Blood Pressure 133/70 121/71 O2 Sat by Pulse 92 L Oximetry (%) 08/17/16 08/17/16 02:00 05:48 Temperature 97.3 F L 97.5 F L Pulse Rate 80 Respiratory 20 20 Rate Blood Pressure 116/66 97/62 O2 Sat by Pulse Oximetry (%) Intake & Output 08/15/16 08/16/16 08/17/16 08/18/16 07:59 07:59 07:59 07:59 Intake Total 8914 407 3089 Output Total 2200 1850 600 Balance -510 -950 500 Weight 187 lb 193 lb 9.6 oz Constitutional: Yes: Well Nourished, No Distress, Calm Cardiovascular: Yes: Regular Rate and Rhythm (soft sounds), S1, S2. No: Gallop , Murmur Respiratory: Yes: Regular, CTA Bilaterally (sounds decr'd diffusely). No: Accessory Muscle Use, Rales, Wheezes Extremities: No: Cold Edema: Yes (3+ ankles) Neurological: Yes: Alert, Oriented Psychiatric: No: Agitated Labs: CBC, BMP 08/17/16 06:10 08/17/16 06:10 Laboratory Tests 08/12/16 08/17/16 14:11 06:10 Magnesium 1.8 Total Bilirubin 0.6 AST 89 H D ALT 93 H D Alkaline Phosphatase 225 H D Assessment/Plan ecg 08/12/16: sr, old rbbb cta chest: no pe, no chf, +left infiltrates echo 04/2014: nl lv, rv tds, mod brian, mod mr, mod tr, rvsp 40-50, mild-mod , mod ar, ao root mild dilatation echo report reviewed: 08/13/16: mod-sev dec LV fn. apical inferior wall AK, mod global HK. NL rv. mod -sev ar. MIld-mod MR, mod TR. RVSP 50-60. bline ao dilation. a/p: 76 m hx htn, copd on home 02, hld, dm, cad s/p remote mi/pci, remote aortic graft endo repair, atrophic left kidney here with sob. 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 Unclear if this is new. - Appears euvolemic. CT without pulmonary edema. LFT's improved today with minimal diuresis. - Recommend follow up with outpatient offal trimmer who has access to more recent records. - con't valsartan. Will stop norvasc and replace with low dose beta ger. Per records, previously had been on metoprolol 100 mg bid so should not significantly worsen pulmonary status. Monitor respiratory status as well as tele (pt with underlying conduction disease) pna, copd: -sxs likely due to pna/copd, cont abx/steroids per pulm/pmd -sob improved with tx -abx, airways tx per pulm htn: -controlled, running low. K elevated on losartan. Patient with atrophic left kidney. Decreased losartan dose this morning 08/17. Holding lasix and will stop amlodipine (may have been worsening edema). Adding bb as above. hld: -cont home statin atypical chest pain, cad s/p remote mi/pci: -no signs acs, ce's neg x2. cp on initial eval seemed related to msk/pna, not suggestive of cardiac etiology -cont home statin, arb, plavix. adding back bb - Systolic dysfunction. Will need f/u with dr kerr (cardio) for further outpatient work up if this is a new finding. mr, tr, ar, as: -moderate on prior echo, no signs of chf - stable on repeat echo h/o AAA endovasc repair: -outpt monitoring/followup (cirilo). 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 - K began rising after starting po lasix. Does not appear significantly volume overloaded on exam today. Will hold lasix and stop norvasc as mentioned above.
[2016-08-17] MEDS: CHOLECALCIFEROL (VITAMIN D3) 1,000 UNIT TABLET (FP) PO SCH (10:17)
[2016-08-17] MEDS: ALPRAZolam 0.25 MG TABLET PO PRN ×2 (10:17→21:59)
[2016-08-17] MEDS: CLOPIDOGREL BISULFATE 75 MG TABLET (FP) PO SCH (10:17)
[2016-08-17] MEDS: LOSARTAN POTASSIUM 50 MG TABLET (FP) PO SCH (10:17)
[2016-08-17] MEDS: cefTRIAXone 1 GM/50 ML BAG (PRE-DOCKED) IVPB SCH (10:17)
[2016-08-17] MEDS: ENOXAPARIN NA (PORCINE) 40 MG/0.4 ML DISP.SYRIN SQ SCH (10:18)
[2016-08-17] MEDS: BUDESONIDE/FORMETEROL FUMARATE 160/4.5 mcg INHALER IH SCH ×2 (10:27→22:00)
[2016-08-17 11:21] LABS: ALBUMIN 2.4 g/dl (3.4-5.0); BILIRUBIN,DIRECT 0.2 mg/dL (0.0-0.2); BILIRUBIN,TOTAL 0.5 mg/dL (0.2-1.0); TOT PROT 5.5 g/dl (6.4-8.2)
--- NOTE | 2016-08-17 11:32 | PN ---
Progress Note, Physician History of Present Illness: pulmonary alert,oob-chair,-resp distress,-cp - Current Medication List Current Medications: Active Medications Acetaminophen (Tylenol -) 650 mg PO Q4H PRN PRN Reason: FEVER OR PAIN Albuterol Sulfate (Ventolin 0.083% Nebulizer Soln -) 1 amp NEB Q4H PRN PRN Reason: SHORT OF BREATH/WHEEZING Last Admin: 08/15/16 03:35 Dose: 1 amp Albuterol/Ipratropium (Duoneb -) 1 amp NEB QIDR [facility]VIN Last Admin: 08/17/16 06:35 Dose: 1 amp Alprazolam (Xanax -) 0.25 mg PO BID PRN Last Admin: 08/17/16 10:17 Dose: 0.25 mg Amlodipine Besylate (Norvasc -) 5 mg PO DAILY [facility] Last Admin: 08/17/16 10:17 Dose: 5 mg Atorvastatin Calcium (Lipitor -) 20 mg PO HS [facility] Last Admin: 08/16/16 21:18 Dose: 20 mg Budesonide/Formoterol Fumarate (Symbicort 160/4.5mcg -) 2 puff IH BID [facility] Last Admin: 08/17/16 10:27 Dose: 2 puff Ceftriaxone Sodium (Rocephin 1gm Ivpb (Pre-Docked)) 1 gm IVPB DAILY [facility] PRN Reason: Protocol Last Admin: 08/17/16 10:17 Dose: 1 gm Cholecalciferol (Vitamin D3 -) 1,000 unit PO DAILY [facility] Last Admin: 08/17/16 10:17 Dose: 1,000 unit Clopidogrel Bisulfate (Plavix -) 75 mg PO DAILY [facility] Last Admin: 08/17/16 10:17 Dose: 75 mg Enoxaparin Sodium (Lovenox -) 40 mg SQ DAILY [facility] Last Admin: 08/17/16 10:18 Dose: 40 mg Insulin Aspart (Novolog Vial Sliding Scale -) 0 vial SQ ACHS [facility] PRN Reason: Protocol Last Admin: 08/17/16 06:09 Dose: 3 units Losartan Potassium (Cozaar -) 50 mg PO DAILY [facility] Last Admin: 08/17/16 10:17 Dose: 50 mg Metformin HCl (Glucophage -) 1,000 mg PO BIDAC [facility] Last Admin: 08/17/16 06:08 Dose: 1,000 mg Prednisone (Deltasone -) 20 mg PO TID [facility] Last Admin: 08/17/16 06:08 Dose: 20 mg - Objective Vital Signs: Vital Signs Temperature 98.1 F 08/17/16 10:30 Pulse Rate 92 H 08/17/16 10:30 Respiratory Rate 20 08/17/16 10:30 Blood Pressure 103/78 08/17/16 10:30 O2 Sat by Pulse Oximetry (%) 92 L 08/16/16 21:00 Constitutional: Yes: Well Nourished, Calm Eyes: Yes: WNL HENT: Yes: WNL Neck: Yes: WNL Cardiovascular: Yes: Regular Rate and Rhythm, S1, S2 Respiratory: Yes: Diminished Gastrointestinal: Yes: Normal Bowel Sounds, Soft Extremities: Yes: WNL Edema: Yes Labs: CBC, BMP 08/17/16 06:10 08/17/16 06:10 INR, PTT INR 1.19 (0.82-1.09) H 08/12/16 14:11 Assessment/Plan Problem List - Problems (1) Chest pain Code(s): R07.9 - CHEST PAIN, UNSPECIFIED (2) COPD (chronic obstructive pulmonary disease) Code(s): J44.9 - CHRONIC OBSTRUCTIVE PULMONARY DISEASE, UNSPECIFIED (3) Chronic respiratory failure with hypoxia Code(s): J96.11 - CHRONIC RESPIRATORY FAILURE WITH HYPOXIA (4) Elevated liver enzymes Code(s): R74.8 - ABNORMAL LEVELS OF OTHER SERUM ENZYMES (5) Chronic diastolic (congestive) heart failure Code(s): I50.32 - CHRONIC DIASTOLIC (CONGESTIVE) HEART FAILURE (6) Pulmonary hypertension Code(s): I27.2 - OTHER SECONDARY PULMONARY HYPERTENSION Assessment/Plan Chest Pain improved r/o Pneumonia vs Lung Mass Severe COPD Emphysema LV Diastolic Dysfunction Pulmonary HTN Elevated LFTs improving - empiric antibiotics - inhaled bronchodilators - trend LFTs - O2 to keep SPo2 >90% - DVT prophylaxis - steroid taper DR LOUISE
[2016-08-17 12:00] LABS: METAMYELOCYTE 1 % (0-2); PLATELET ESTIMATE ADEQUATE (NORMAL)
--- NOTE | 2016-08-17 12:05 | PN ---
Progress Note, Physician Chief Complaint: Mr Varma is without complaint. No cp, sob, n/v. Asking about the proper way to wear compression stockings. - Current Medication List Current Medications: Active Medications Acetaminophen (Tylenol -) 650 mg PO Q4H PRN PRN Reason: FEVER OR PAIN Albuterol Sulfate (Ventolin 0.083% Nebulizer Soln -) 1 amp NEB Q4H PRN PRN Reason: SHORT OF BREATH/WHEEZING Last Admin: 08/15/16 03:35 Dose: 1 amp Albuterol/Ipratropium (Duoneb -) 1 amp NEB QIDR [facility] Last Admin: 08/17/16 06:35 Dose: 1 amp Alprazolam (Xanax -) 0.25 mg PO BID PRN Last Admin: 08/17/16 10:17 Dose: 0.25 mg Amlodipine Besylate (Norvasc -) 5 mg PO DAILY [facility] Last Admin: 08/17/16 10:17 Dose: 5 mg Atorvastatin Calcium (Lipitor -) 20 mg PO HS [facility] Last Admin: 08/16/16 21:18 Dose: 20 mg Budesonide/Formoterol Fumarate (Symbicort 160/4.5mcg -) 2 puff IH BID [facility] Last Admin: 08/17/16 10:27 Dose: 2 puff Ceftriaxone Sodium (Rocephin 1gm Ivpb (Pre-Docked)) 1 gm IVPB DAILY [facility] PRN Reason: Protocol Last Admin: 08/17/16 10:17 Dose: 1 gm Cholecalciferol (Vitamin D3 -) 1,000 unit PO DAILY [facility] Last Admin: 08/17/16 10:17 Dose: 1,000 unit Clopidogrel Bisulfate (Plavix -) 75 mg PO DAILY [facility] Last Admin: 08/17/16 10:17 Dose: 75 mg Enoxaparin Sodium (Lovenox -) 40 mg SQ DAILY [facility] Last Admin: 08/17/16 10:18 Dose: 40 mg Insulin Aspart (Novolog Vial Sliding Scale -) 0 vial SQ ACHS [facility] PRN Reason: Protocol Last Admin: 08/17/16 06:09 Dose: 3 units Losartan Potassium (Cozaar -) 50 mg PO DAILY [facility] Last Admin: 08/17/16 10:17 Dose: 50 mg Metformin HCl (Glucophage -) 1,000 mg PO BIDAC [facility] Last Admin: 08/17/16 06:08 Dose: 1,000 mg Prednisone 20 mg/ Prednisone 5 (mg) 25 mg PO BID [facility] Sodium Polystyrene Sulfonate (Kayexalate -) 15 gm PO ONCE ONE Stop: 08/17/16 12:02 - Objective Vital Signs: Vital Signs Temperature 98.1 F 08/17/16 10:30 Pulse Rate 92 H 08/17/16 10:30 Respiratory Rate 20 08/17/16 10:30 Blood Pressure 103/78 08/17/16 10:30 O2 Sat by Pulse Oximetry (%) 92 L 08/16/16 21:00 Constitutional: Yes: Well Nourished, No Distress, Calm Cardiovascular: Yes: Regular Rate and Rhythm. No: Gallop, Murmur, Rub Respiratory: Yes: Regular, CTA Bilaterally. No: Rales, Rhonchi, Wheezes Gastrointestinal: Yes: Normal Bowel Sounds, Soft. No: Distention, Tenderness Extremities: Yes: WNL Edema: Yes Edema: LLE: 2+, RLE: 2+ Labs: CBC, BMP 08/17/16 06:10 08/17/16 06:10 INR, PTT INR 1.19 (0.82-1.09) H 08/12/16 14:11 Problem List - Problems (1) Pneumonia Code(s): J18.9 - PNEUMONIA, UNSPECIFIED ORGANISM (2) Chest pain Code(s): R07.9 - CHEST PAIN, UNSPECIFIED (3) Chronic diastolic (congestive) heart failure Code(s): I50.32 - CHRONIC DIASTOLIC (CONGESTIVE) HEART FAILURE (4) COPD (chronic obstructive pulmonary disease) Code(s): J44.9 - CHRONIC OBSTRUCTIVE PULMONARY DISEASE, UNSPECIFIED Qualifiers : COPD type: COPD with acute exacerbation Qualified Code(s): J44.1 - Chronic obstructive pulmonary disease with (acute) exacerbation (5) HTN (hypertension) Code(s): I10 - ESSENTIAL (PRIMARY) HYPERTENSION (6) HLD (hyperlipidemia) Code(s): E78.5 - HYPERLIPIDEMIA, UNSPECIFIED (7) Diabetes Code(s): E11.9 - TYPE 2 DIABETES MELLITUS WITHOUT COMPLICATIONS Qualifiers: Diabetes mellitus type: type 2 Assessment/Plan (1) Pneumonia Assessment/Plan: -CT scan of the chest showing infiltrates consistent with pneumonia -continue rocephin day 6 -can discharge after tomorrows dose Code(s): J18.9 - PNEUMONIA, UNSPECIFIED ORGANISM (2) Chest pain Assessment/Plan: -resolved -pleurisy secondary to pneumonia Code(s): R07.9 - CHEST PAIN, UNSPECIFIED (3) Chronic diastolic (congestive) heart failure Assessment/Plan: -case d/w cardiology -noted to have new systolic dysfunction on ECHO -cardiology feels patient does not need further diuresis -decrease amlodipine and compression stockings for fluid Code(s): I50.32 - CHRONIC DIASTOLIC (CONGESTIVE) HEART FAILURE (4) COPD (chronic obstructive pulmonary disease) Assessment/Plan: -pulmonary following -on prednisone -continue duonebs -prednisone causing leukocytosis Code(s): J44.9 - CHRONIC OBSTRUCTIVE PULMONARY DISEASE, UNSPECIFIED Qualifiers : COPD type: COPD with acute exacerbation Qualified Code(s): J44.1 - Chronic obstructive pulmonary disease with (acute) exacerbation (5) HTN (hypertension) Assessment/Plan: -decrease amlodipine and cozaar Code(s): I10 - ESSENTIAL (PRIMARY) HYPERTENSION (6) HLD (hyperlipidemia) Assessment/Plan: -continue lipitor Code(s): E78.5 - HYPERLIPIDEMIA, UNSPECIFIED (7) Diabetes -continue diabetic diet -continue metformin and SSI -hyperglycemia secondary to steroids
[2016-08-17] MEDS ORDERED: SODIUM POLYSTYRENE SULFONATE 15 GM/60 ML BOTTLE PO ONE (12:30)
--- NOTE | 2016-08-17 12:33 | CONSULT ---
Admitting History and Physical - Primary Care Physician PCP: Manny Arias - Admission Chief Complaint: odynophagia History of Present Illness: Per EMR:"Patient is a 76 year old male with significant medical hx of MD, COPD ( 3L O2 at home; normal O2Sat is 90%), HTN, HLD, DM and CAD s/p cardiac stents x 5 who is presenting to the ED with left sided pleuritic chest pain since yesterday and several days of worsening shortness of breath. Patient reports he has had intermittent chest pain for the past several years but has worsened yesterday. His chest pain is localized to the left side, non-radiating, pleuritic in nature, and described as sharp and tight. The patient endorses worsening of his symptoms with exertion and increased swelling to his left leg. Family members report that the patient has had decreased appetite and increased fatigue over the past several days." Per RD note:"Pt tolerates soft foods. Pt reports decreased appetite from chest pain and SOB the past few days. Pt reports 13lb weight loss over the past 3 months (unintentional). NKFA noted. Pt notes difficulty chew/swallowing and was seen by ENT. Pt says swallowing is now improving." "Chest Pain improved r/o Pneumonia vs Lung Mass Severe COPD Emphysema LV Diastolic Dysfunction Pulmonary HTN Elevated LFTs improving" Pt reported that he had difficulty chewing and swallowing at home when he was SOB with very dry oral mucosa. - Past Medical History Cardiovascular: Yes: Aneurysm, CAD, HTN, Hyperlipdemia, MD Pulmonary: Yes: COPD, O2 Dependent Renal/: Yes: Renal Inusuff - Past Surgical History Past Surgical History: Yes: Hernia Repair, Stent - Smoking History Smoking history: Former smoker Have you smoked in the past 12 months: No Aproximately how many cigarettes per day: 20 If you are a former smoker, when did you quit?: 2013 - Alcohol/Substance Use Hx Alcohol Use: No History of Substance Use: reports: None - Social History ADL: Independent History of Recent Travel: No History - Admission Reason For Visit: LUNG MASS - Diagnostics X-ray: Report Reviewed CT Scan: Report Reviewed - General Mental Status: Alert and Oriented, Awake and Alert, Able to Follow Commands Attention: Intact Ability to Follow Directions: Excellent Head/Neck Control: WFL - Hearing Hearing: Normal Speech Evaluation - Communication Primary Language: BENGALI Communication: Yes: Within Normal Limits Oral Expression Ability: Yes: Mild Impairment - Speech Production Able to Make Needs Known: Yes: Mildly Impaired - Speech Characteristics Voice Loudness: Mildly Soft/Quiet Voice Pitch: Yes: Diplophonia Voice Phonatory-based Quality: Yes: Normal Nasal Resonance: Normal Articulation: Yes: Precise Rate of Speech: Intact - Language/Auditory Comprehension Observation: Able to respond to yes/no queries: Yes, Yes/No Confusion: No - Language/Verbal Expression Able to Respond to Simple Queries: Yes: WNL Able to Communicate Wants and Needs: Yes: WNL Functional Communication Status: Yes: WNL - Memory/Perception group home Memory: Yes: WNL Short Term Memory: Yes: WNL - Swallow Evaluation/Bedside Assessment Current Nutritional Intake: Regular, Thin Liquids Oral Secretions: Yes: WFL Dentition: Yes: Adequate Facial Symmetry at Rest: Symmetrical Facial Symmetry on Retraction: Symmetrical Facial Movement: Controlled Against Resistance Opening: Normal Against Resistance Closing: Normal Pucker Lips: Normal Smile: Normal Lingual Movement: Normal Lingual Speed of Movement: Normal Lingual Movement Strgth Against Opposition: Normal Lingual Movement Characteristics: Normal Soft Palate Description: Normal Color, Normal Symmetry Hard Palate Description: Normal Color, Normal Symmetry Velopharyngeal Movement: Normal Laryngeal Elevation: WFL Laryngeal Movement: Able to Palpate Rate of Intake: WFL Bolus Size: WFL Labial Seal: WFL Chewing: WFL Oral Prep Time: WFL A-P Transit: WFL Pocketing: None Timing of Swallow: WFL Coughing/Throat Clear: No Change in Voice: No Recommendations - Speech Evaluation, Impression/Plan Impression: Normal chewing/swallowing. Symptoms of dysphagia have improved with improved respiratory function. Voice is dysphonic, which he feels is sec to inhalers. Reviewed need for oral rinse/gargling after inhalers to reduce risk of thrush. No oral jc noted. Denies odynophagia at this time. c/o difficulty using this inhaler with short spout. May benefit from spacer? - Dysphagia Impressions/Plan Swallowing Skills: [facility] Dysphagia Impressions: No Impairment *Silent aspiration: cannot be R/O at bedside Dysphagia Treatment Plan: Other (monitor for thrush and vocal changes.) - Recommendations Diet Consistency: Regular Medication Administration: Whole with water Liquids: Thin Liquids
[2016-08-17] MEDS: METOPROLOL SUCCINATE 25 MG TAB.SR.24H (FP) PO SCH (13:19)
[2016-08-17] MEDS: NYSTATIN 500,000 UNITS/5 ML SUSPENSION PO SCH (17:13)
[2016-08-17] MEDS ORDERED: predniSONE 20 MG TABLET (UD) ONE (21:46)
[2016-08-17] MEDS: ATORVASTATIN CA 20 MG TABLET (FP) PO SCH (21:59)
[2016-08-17] MEDS: PREDNISONE PO SCH (21:59)
[2016-08-17] MEDS ORDERED: predniSONE 20 MG TABLET (UD) PO SCH (22:00)
[2016-08-18] MEDS: NYSTATIN 500,000 UNITS/5 ML SUSPENSION PO SCH ×5 (00:37→23:25)
[2016-08-18] MEDS ORDERED: PT OWN MED DRAWER 7, Y5N ONE ×2 (05:09→21:47)
[2016-08-18] MEDS: metFORMIN HCL 500 MG TABLET (FP) PO SCH ×2 (06:14→17:28)
[2016-08-18] MEDS: INSULIN SLIDING SCALE (NOVOLOG) 1 VIAL SQ SCH ×4 (06:15→21:58)
[2016-08-18] MEDS: ALBUTEROL SO4 2.5/IPRATROPIUM 0.5 INH SOL 3 ML VIAL.NEB. NEB SCH ×3 (06:15→17:41)
[2016-08-18] MEDS ORDERED: INSULIN (NOVOLOG) ASPART 100 UNITS/ML 10ML VIAL ONE ×3 (06:53→21:47)
[2016-08-18 07:00] LABS: MCH 28.6 pg (25.7-33.7); MCHC 32.4 g/dl (32.0-35.9); MEAN CELL VOLUME 88.1 fl (80-96); MEAN PLT VOLUME 7.7 fl (7.5-11.1); PLATELET COUNT 438 K/MM3 (134-434); WHITE BLOOD COUNT 16.6 K/mm3 (4.0-10.0)
[2016-08-18 08:27] LABS: CALCIUM 8.2 mg/dL (8.5-10.1); COCKROFT - GAULT 88.9; CREATININE 0.9 mg/dL (0.7-1.3); MAGNESIUM 1.7 mg/dL (1.8-2.4)
[2016-08-18] MEDS ORDERED: predniSONE 20 MG TABLET (UD) ONE (09:54)
[2016-08-18] MEDS: cefTRIAXone 1 GM/50 ML BAG (PRE-DOCKED) IVPB SCH (10:09)
[2016-08-18] MEDS: CLOPIDOGREL BISULFATE 75 MG TABLET (FP) PO SCH (10:12)
[2016-08-18] MEDS: PREDNISONE PO SCH (10:12)
[2016-08-18] MEDS: METOPROLOL SUCCINATE 25 MG TAB.SR.24H (FP) PO SCH (10:13)
[2016-08-18] MEDS: LOSARTAN POTASSIUM 50 MG TABLET (FP) PO SCH (10:13)
[2016-08-18] MEDS: ENOXAPARIN NA (PORCINE) 40 MG/0.4 ML DISP.SYRIN SQ SCH (10:13)
[2016-08-18] MEDS: BUDESONIDE/FORMETEROL FUMARATE 160/4.5 mcg INHALER IH SCH ×2 (10:13→21:58)
[2016-08-18] MEDS: CHOLECALCIFEROL (VITAMIN D3) 1,000 UNIT TABLET (FP) PO SCH (10:13)
--- NOTE | 2016-08-18 10:31 | PN ---
Progress Note (short form) - Note Progress Note: Chief Complaint: sob/cp, edema History of Present Illness: sob better, no cp palps dizzy Current Medications Generic Name Dose Route Start Last Admin Trade Name Freq PRN Reason Stop Dose Admin Acetaminophen 650 mg 08/12/16 16:30 Tylenol - PO Q4H PRN FEVER OR PAIN Albuterol Sulfate 1 amp 08/12/16 16:07 08/15/16 03:35 Ventolin 0.083% Nebulizer Soln - NEB 1 amp Q4H PRN Administration SHORT OF BREATH/WHEEZING Albuterol/Ipratropium 1 amp 08/12/16 18:00 08/18/16 06:15 Duoneb - NEB 1 amp QIDR EDVIN Administration Alprazolam 0.25 mg 08/15/16 14:00 08/17/16 21:59 Xanax - PO 0.25 mg BID PRN Administration Atorvastatin Calcium 20 mg 08/12/16 22:00 08/17/16 21:59 Lipitor - PO 20 mg HS EDVIN Administration Budesonide/Formoterol Fumarate 2 puff 08/12/16 22:00 08/18/16 10:13 Symbicort 160/4.5mcg - IH 2 puff BID EDVIN Administration Ceftriaxone Sodium 1 gm 08/12/16 16:15 08/18/16 10:09 Rocephin 1gm Ivpb (Pre-Docked) IVPB 1 gm DAILY [facility] Administration Protocol Cholecalciferol 1,000 unit 08/13/16 10:00 08/18/16 10:13 Vitamin D3 - PO 1,000 unit DAILY [facility] Administration Clopidogrel Bisulfate 75 mg 08/13/16 10:00 08/18/16 10:12 Plavix - PO 75 mg DAILY [facility] Administration Enoxaparin Sodium 40 mg 08/13/16 10:00 08/18/16 10:13 Lovenox - SQ 40 mg DAILY [facility] Administration Insulin Aspart 0 vial 08/12/16 16:30 08/18/16 06:15 Novolog Vial Sliding Scale - SQ 3 units ACHS ED[facility] Administration Protocol Losartan Potassium 50 mg 08/17/16 10:00 08/18/16 10:13 Cozaar - PO 50 mg DAILY [facility] Administration Metformin HCl 1,000 mg 08/12/16 16:30 08/18/16 06:14 Glucophage - PO 1,000 mg BIDAC [facility]IN Administration Metoprolol Succinate 25 mg 08/17/16 12:45 08/18/16 10:13 Toprol Xl - PO 25 mg DAILY [facility] Administration Nystatin 500,000 units 08/17/16 18:00 08/18/16 06:14 Nystatin Oral Suspension - PO 500,000 units Q6HPO [facility] Administration Prednisone 20 mg/ Prednisone 5 25 mg 08/17/16 22:00 08/18/16 10:12 mg PO 25 mg BID ED[facility]IN Administration Vital Signs Period Temp Pulse Resp BP Sys/Lopez Pulse Ox Last 24 Hr 97.5 F-98.2 F 71-104 16-20 101-150/60-83 97-97 Constitutional: Yes: Well Nourished, No Distress, Calm Cardiovascular: Yes: Regular Rate and Rhythm (soft sounds), S1, S2. No: Gallop , Murmur Respiratory: Yes: Regular, CTA Bilaterally nl eff. No: Accessory Muscle Use, Rales, Wheezes Extremities: No: Cold Edema: Yes (2+ ankles) Neurological: Yes: Alert, Oriented Psychiatric: No: Agitated no jaundice diaphoresis Labs: CBC, BMP 08/18/16 05:47 08/18/16 05:47 ecg 08/12/16: sr, old rbbb cta chest: no pe, no chf, +left infiltrates echo 04/2014: nl lv, rv tds, mod brian, mod mr, mod tr, rvsp 40-50, mild-mod , mod ar, ao root mild dilatation echo report reviewed: 08/13/16: mod-sev dec LV fn. apical inferior wall AK, mod global HK. NL rv. mod -sev ar. MIld-mod MR, mod TR. RVSP 50-60. bline ao dilation. tele: sr, occ pvcs, brief atrial run a/p: 76 m hx htn, copd on home 02, hld, dm, cad s/p remote mi/pci, remote aortic graft endo repair, atrophic left kidney here with sob. 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 Unclear if this is new. - Appears euvolemic. CT without pulmonary edema. - Recommend follow up with outpatient talent development specialist who has access to more recent records. - con't valsartan. have stopped norvasc and replaced with low dose beta ger. Per records, previously had been on metoprolol 100 mg bid so should not significantly worsen pulmonary status. pna, copd: -sxs likely due to pna/copd, cont abx/steroids per pulm/pmd -sob improved with tx htn: -controlled on current meds hld: -cont home statin atypical chest pain, cad s/p remote mi/pci: -no signs acs, ce's neg x2. cp on initial eval seemed related to msk/pna, not suggestive of cardiac etiology -cont home statin, arb, plavix. adding back bb - Systolic dysfunction. Will need f/u with dr kerr (cardio) for further outpatient work up if this is a new finding. mr, tr, ar, as: -moderate on prior echo, no signs of chf - stable on repeat echo h/o AAA endovasc repair: -outpt monitoring/followup (cirilo). 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 - K began rising after starting po lasix. Does not appear significantly volume overloaded on exam today. Will hold lasix and stop norvasc as mentioned above.
--- NOTE | 2016-08-18 11:56 | PN ---
Progress Note, Physician History of Present Illness: pulmonary alert,oob-chair,-resp distress,less cough - Current Medication List Current Medications: Active Medications Acetaminophen (Tylenol -) 650 mg PO Q4H PRN PRN Reason: FEVER OR PAIN Albuterol Sulfate (Ventolin 0.083% Nebulizer Soln -) 1 amp NEB Q4H PRN PRN Reason: SHORT OF BREATH/WHEEZING Last Admin: 08/15/16 03:35 Dose: 1 amp Albuterol/Ipratropium (Duoneb -) 1 amp NEB QIDR [facility] Last Admin: 08/18/16 06:15 Dose: 1 amp Alprazolam (Xanax -) 0.25 mg PO BID PRN Last Admin: 08/17/16 21:59 Dose: 0.25 mg Atorvastatin Calcium (Lipitor -) 20 mg PO HS [facility] Last Admin: 08/17/16 21:59 Dose: 20 mg Budesonide/Formoterol Fumarate (Symbicort 160/4.5mcg -) 2 puff IH BID [facility] Last Admin: 08/18/16 10:13 Dose: 2 puff Ceftriaxone Sodium (Rocephin 1gm Ivpb (Pre-Docked)) 1 gm IVPB DAILY [facility] PRN Reason: Protocol Last Admin: 08/18/16 10:09 Dose: 1 gm Cholecalciferol (Vitamin D3 -) 1,000 unit PO DAILY [facility] Last Admin: 08/18/16 10:13 Dose: 1,000 unit Clopidogrel Bisulfate (Plavix -) 75 mg PO DAILY [facility] Last Admin: 08/18/16 10:12 Dose: 75 mg Enoxaparin Sodium (Lovenox -) 40 mg SQ DAILY [facility] Last Admin: 08/18/16 10:13 Dose: 40 mg Insulin Aspart (Novolog Vial Sliding Scale -) 0 vial SQ ACHS [facility] PRN Reason: Protocol Last Admin: 08/18/16 06:15 Dose: 3 units Losartan Potassium (Cozaar -) 50 mg PO DAILY [facility] Last Admin: 08/18/16 10:13 Dose: 50 mg Metformin HCl (Glucophage -) 1,000 mg PO BIDAC [facility] Last Admin: 08/18/16 06:14 Dose: 1,000 mg Metoprolol Succinate (Toprol Xl -) 25 mg PO DAILY [facility] Last Admin: 08/18/16 10:13 Dose: 25 mg Nystatin (Nystatin Oral Suspension -) 500,000 units PO Q6HPO [facility] Last Admin: 08/18/16 06:14 Dose: 500,000 units Prednisone 20 mg/ Prednisone 5 (mg) 25 mg PO BID [facility] Last Admin: 08/18/16 10:12 Dose: 25 mg - Objective Vital Signs: Vital Signs Temperature 97.7 F 08/18/16 10:15 Pulse Rate 63 08/18/16 10:15 Respiratory Rate 18 08/18/16 10:15 Blood Pressure 115/57 08/18/16 10:15 O2 Sat by Pulse Oximetry (%) 97 08/17/16 22:06 Constitutional: Yes: Well Nourished, Calm Eyes: Yes: WNL HENT: Yes: WNL Neck: Yes: WNL Cardiovascular: Yes: Regular Rate and Rhythm, S1, S2 Respiratory: Yes: Rales (bibasilar crackles) Gastrointestinal: Yes: Normal Bowel Sounds, Soft Extremities: Yes: WNL Edema: No Labs: CBC, BMP 08/18/16 05:47 08/18/16 05:47 INR, PTT INR 1.19 (0.82-1.09) H 08/12/16 14:11 Assessment/Plan Problem List - Problems (1) Chest pain Code(s): R07.9 - CHEST PAIN, UNSPECIFIED (2) COPD (chronic obstructive pulmonary disease) Code(s): J44.9 - CHRONIC OBSTRUCTIVE PULMONARY DISEASE, UNSPECIFIED (3) Chronic respiratory failure with hypoxia Code(s): J96.11 - CHRONIC RESPIRATORY FAILURE WITH HYPOXIA (4) Elevated liver enzymes Code(s): R74.8 - ABNORMAL LEVELS OF OTHER SERUM ENZYMES (5) Chronic diastolic (congestive) heart failure Code(s): I50.32 - CHRONIC DIASTOLIC (CONGESTIVE) HEART FAILURE (6) Pulmonary hypertension Code(s): I27.2 - OTHER SECONDARY PULMONARY HYPERTENSION Assessment/Plan Chest Pain improved r/o Pneumonia vs Lung Mass Severe COPD Emphysema LV Diastolic Dysfunction Pulmonary HTN Elevated LFTs improving - inhaled bronchodilators - trend LFTs - O2 to keep SPo2 >90% - DVT prophylaxis - cont steroid taper DR LOUISE
--- NOTE | 2016-08-18 13:47 | DS ---
Physical Examination Vital Signs: Vital Signs Temperature 97.7 F 08/18/16 10:15 Pulse Rate 110 H 08/18/16 11:30 Respiratory Rate 18 08/18/16 10:15 Blood Pressure 115/57 08/18/16 10:15 O2 Sat by Pulse Oximetry (%) 91 L 08/18/16 11:30 Labs: CBC, BMP 08/18/16 05:47 08/18/16 05:47 Discharge Summary Reason For Visit: LUNG MASS Current Active Problems Chest pain (Acute) Chronic diastolic (congestive) heart failure (Acute) Chronic respiratory failure with hypoxia (Acute) Diabetes (Acute) Elevated liver enzymes (Acute) HLD (hyperlipidemia) (Acute) HTN (hypertension) (Acute) Lung mass (Acute) Pneumonia (Acute) Prolonged QT interval (Acute) Pulmonary hypertension (Acute) Condition: Stable - Instructions Diet, Activity, Other Instructions: resume previous diet and activity Referrals: Cain Yun MD [Primary Care Provider] - Sanjay Wright MD, MD [Staff Physician] - Disposition: HOME - Home Medications Comprehensive Discharge Medication List: Ambulatory Orders Albuterol Sulfate [Proair Hfa -] 2 ih IH DAILY PRN #0 [email or web address] 02/24/12 Atorvastatin Ca [Lipitor] 20 mg PO HS #0 tablet 02/24/12 Amlodipine Besylate [Norvasc -] 10 mg PO HS 11/18/14 Metformin HCl [Glucophage -] 1,000 mg PO BIDAC 11/18/14 Alprazolam 0.25 mg PO PRN PRN 05/29/15 Cholecalciferol (Vitamin D3) [Vitamin D3] 1,000 unit PO HS 05/29/15 Clopidogrel Bisulfate [Plavix -] 75 mg PO HS 08/12/16 Fluticasone/Salmeterol [Advair Hfa 230-21 Mcg Inhaler] 2 inh PO BID 08/12/16 Ipratropium/Albuterol Sulfate [Iprat-Albut 0.5-3(2.5) mg/3 ml] 3 ml IH BID PRN 08/12/16 Magnesium Oxide [Mag-Ox -] 400 mg PO HS 08/12/16 Losartan Potassium [Cozaar -] 50 mg PO DAILY #30 tablet 08/18/16 Metoprolol Succinate [Toprol XL -] 25 mg PO DAILY #30 tab.sr 08/18/16 Prednisone [Deltasone -] 5 mg PO ASDIR #78 tab 08/18/16
[2016-08-18 14:50] LABS: PLATELET ESTIMATE ADEQUATE (NORMAL)
--- NOTE | 2016-08-18 15:56 | PN ---
Progress Note, Physician Chief Complaint: Mr Varma says he feels fine. No cp, sob, n/v. RN and PT says patient with significant difficulty walking. - Current Medication List Current Medications: Active Medications Acetaminophen (Tylenol -) 650 mg PO Q4H PRN PRN Reason: FEVER OR PAIN Albuterol Sulfate (Ventolin 0.083% Nebulizer Soln -) 1 amp NEB Q4H PRN PRN Reason: SHORT OF BREATH/WHEEZING Last Admin: 08/15/16 03:35 Dose: 1 amp Albuterol/Ipratropium (Duoneb -) 1 amp NEB QIDR [facility] Last Admin: 08/18/16 11:30 Dose: 1 amp Alprazolam (Xanax -) 0.25 mg PO BID PRN Last Admin: 08/17/16 21:59 Dose: 0.25 mg Atorvastatin Calcium (Lipitor -) 20 mg PO HS [facility] Last Admin: 08/17/16 21:59 Dose: 20 mg Budesonide/Formoterol Fumarate (Symbicort 160/4.5mcg -) 2 puff IH BID [facility] Last Admin: 08/18/16 10:13 Dose: 2 puff Cholecalciferol (Vitamin D3 -) 1,000 unit PO DAILY [facility] Last Admin: 08/18/16 10:13 Dose: 1,000 unit Clopidogrel Bisulfate (Plavix -) 75 mg PO DAILY [facility] Last Admin: 08/18/16 10:12 Dose: 75 mg Enoxaparin Sodium (Lovenox -) 40 mg SQ DAILY [facility] Last Admin: 08/18/16 10:13 Dose: 40 mg Insulin Aspart (Novolog Vial Sliding Scale -) 0 vial SQ ACHS [facility] PRN Reason: Protocol Last Admin: 08/18/16 12:24 Dose: 5 units Losartan Potassium (Cozaar -) 50 mg PO DAILY [facility] Last Admin: 08/18/16 10:13 Dose: 50 mg Metformin HCl (Glucophage -) 1,000 mg PO BIDAC [facility] Last Admin: 08/18/16 06:14 Dose: 1,000 mg Metoprolol Succinate (Toprol Xl -) 25 mg PO DAILY [facility] Last Admin: 08/18/16 10:13 Dose: 25 mg Nystatin (Nystatin Oral Suspension -) 500,000 units PO Q6HPO [facility] Last Admin: 08/18/16 12:26 Dose: 500,000 units Prednisone (Deltasone -) 20 mg PO BID [facility] - Objective Vital Signs: Vital Signs Temperature 98.2 F 08/18/16 14:14 Pulse Rate 84 08/18/16 14:14 Respiratory Rate 20 08/18/16 14:14 Blood Pressure 114/62 08/18/16 14:14 O2 Sat by Pulse Oximetry (%) 91 L 08/18/16 11:30 Constitutional: Yes: Well Nourished, No Distress, Calm Cardiovascular: Yes: Regular Rate and Rhythm. No: Gallop, Murmur, Rub Respiratory: Yes: Regular, On Nasal O2, Rhonchi, Wheezes. No: CTA Bilaterally, Rales Gastrointestinal: Yes: Normal Bowel Sounds, Soft. No: Distention, Tenderness Extremities: Yes: WNL Edema: Yes Edema: LLE: 1+, RLE: 1+ Labs: CBC, BMP 08/18/16 05:47 08/18/16 05:47 INR, PTT INR 1.19 (0.82-1.09) H 08/12/16 14:11 Problem List - Problems (1) Pneumonia Code(s): J18.9 - PNEUMONIA, UNSPECIFIED ORGANISM (2) Chest pain Code(s): R07.9 - CHEST PAIN, UNSPECIFIED (3) Chronic diastolic (congestive) heart failure Code(s): I50.32 - CHRONIC DIASTOLIC (CONGESTIVE) HEART FAILURE (4) COPD (chronic obstructive pulmonary disease) Code(s): J44.9 - CHRONIC OBSTRUCTIVE PULMONARY DISEASE, UNSPECIFIED Qualifiers : COPD type: COPD with acute exacerbation Qualified Code(s): J44.1 - Chronic obstructive pulmonary disease with (acute) exacerbation (5) HTN (hypertension) Code(s): I10 - ESSENTIAL (PRIMARY) HYPERTENSION (6) HLD (hyperlipidemia) Code(s): E78.5 - HYPERLIPIDEMIA, UNSPECIFIED (7) Diabetes Code(s): E11.9 - TYPE 2 DIABETES MELLITUS WITHOUT COMPLICATIONS Qualifiers: Diabetes mellitus type: type 2 Assessment/Plan (1) Pneumonia Assessment/Plan: -CT scan of the chest showing infiltrates consistent with pneumonia -continue rocephin day 7 -will stop antibiotics today Code(s): J18.9 - PNEUMONIA, UNSPECIFIED ORGANISM (2) Chest pain Assessment/Plan: -resolved -pleurisy secondary to pneumonia Code(s): R07.9 - CHEST PAIN, UNSPECIFIED (3) Chronic diastolic (congestive) heart failure Assessment/Plan: -case d/w cardiology -continue decreased amlodipine and compression stockings Code(s): I50.32 - CHRONIC DIASTOLIC (CONGESTIVE) HEART FAILURE (4) COPD (chronic obstructive pulmonary disease) Assessment/Plan: -pulmonary following -on prednisone -continue duonebs -walked, patient became weak and hypoxic -continue management Code(s): J44.9 - CHRONIC OBSTRUCTIVE PULMONARY DISEASE, UNSPECIFIED Qualifiers : COPD type: COPD with acute exacerbation Qualified Code(s): J44.1 - Chronic obstructive pulmonary disease with (acute) exacerbation (5) HTN (hypertension) Assessment/Plan: -decrease amlodipine and cozaar Code(s): I10 - ESSENTIAL (PRIMARY) HYPERTENSION (6) HLD (hyperlipidemia) Assessment/Plan: -continue lipitor Code(s): E78.5 - HYPERLIPIDEMIA, UNSPECIFIED (7) Diabetes -continue diabetic diet -continue metformin and SSI -hyperglycemia secondary to steroids Dispo -planning on discharge today -however became hypoxic and weak on ambulation -will need to discuss with pulmonary -? SNF placement
[2016-08-18] MEDS: ATORVASTATIN CA 20 MG TABLET (FP) PO SCH (21:58)
[2016-08-19] MEDS: ALBUTEROL SO4 2.5/IPRATROPIUM 0.5 INH SOL 3 ML VIAL.NEB. NEB SCH ×5 (00:43→23:02)
[2016-08-19] MEDS ORDERED: INSULIN (NOVOLOG) ASPART 100 UNITS/ML 10ML VIAL ONE ×4 (06:19→22:17)
[2016-08-19] MEDS: metFORMIN HCL 500 MG TABLET (FP) PO SCH ×2 (06:22→18:12)
[2016-08-19] MEDS: NYSTATIN 500,000 UNITS/5 ML SUSPENSION PO SCH ×3 (06:22→18:15)
[2016-08-19] MEDS: INSULIN SLIDING SCALE (NOVOLOG) 1 VIAL SQ SCH ×4 (06:22→22:24)
[2016-08-19] MEDS: ALBUTEROL SO4 0.083% IH SOL 2.5 MG/3 ML VIAL.NEB. NEB PRN (09:15)
[2016-08-19] MEDS ORDERED: FUROSEMIDE 40 MG/4 ML INJECTABLE VIAL IVPB ONE (09:45)
--- NOTE | 2016-08-19 10:01 | PN ---
Progress Note, Physician Chief Complaint: Mr Varma says he began feeling short of breath this morning, like he has been doing a lot of exercise. No cp or n/v. RN states patient was short of breath and hypoxic requiring increase in oxygen support. Hypoxia did not improve with nebulizer treatment. - Current Medication List Current Medications: Active Medications Acetaminophen (Tylenol -) 650 mg PO Q4H PRN PRN Reason: FEVER OR PAIN Albuterol Sulfate (Ventolin 0.083% Nebulizer Soln -) 1 amp NEB Q4H PRN PRN Reason: SHORT OF BREATH/WHEEZING Last Admin: 08/15/16 03:35 Dose: 1 amp Albuterol/Ipratropium (Duoneb -) 1 amp NEB QIDR [facility] Last Admin: 08/19/16 05:47 Dose: 1 amp Alprazolam (Xanax -) 0.25 mg PO BID PRN Last Admin: 08/17/16 21:59 Dose: 0.25 mg Atorvastatin Calcium (Lipitor -) 20 mg PO HS [facility] Last Admin: 08/18/16 21:58 Dose: 20 mg Budesonide/Formoterol Fumarate (Symbicort 160/4.5mcg -) 2 puff IH BID [facility] Last Admin: 08/18/16 21:58 Dose: 2 puff Cholecalciferol (Vitamin D3 -) 1,000 unit PO DAILY [facility] Last Admin: 08/18/16 10:13 Dose: 1,000 unit Clopidogrel Bisulfate (Plavix -) 75 mg PO DAILY [facility] Last Admin: 08/18/16 10:12 Dose: 75 mg Enoxaparin Sodium (Lovenox -) 40 mg SQ DAILY [facility] Last Admin: 08/18/16 10:13 Dose: 40 mg Insulin Aspart (Novolog Vial Sliding Scale -) 0 vial SQ ACHS [facility] PRN Reason: Protocol Last Admin: 08/19/16 06:22 Dose: 1 unit Losartan Potassium (Cozaar -) 50 mg PO DAILY [facility] Last Admin: 08/18/16 10:13 Dose: 50 mg Metformin HCl (Glucophage -) 1,000 mg PO BIDAC [facility] Last Admin: 08/19/16 06:22 Dose: 1,000 mg Metoprolol Succinate (Toprol Xl -) 25 mg PO DAILY [facility] Last Admin: 08/18/16 10:13 Dose: 25 mg Nystatin (Nystatin Oral Suspension -) 500,000 units PO Q6HPO [facility] Last Admin: 08/19/16 06:22 Dose: 500,000 units Prednisone (Deltasone -) 20 mg PO BID [facility] - Objective Vital Signs: Vital Signs Temperature 98.6 F 08/19/16 05:57 Pulse Rate 91 H 08/19/16 08:20 Respiratory Rate 22 08/19/16 08:20 Blood Pressure 144/82 08/19/16 08:20 O2 Sat by Pulse Oximetry (%) 96 08/18/16 20:25 Constitutional: Yes: Well Nourished, Mild Distress Cardiovascular: Yes: Regular Rate and Rhythm. No: Gallop, Murmur, Rub Respiratory: Yes: On Nasal O2, Rhonchi, Tachypnea (slightly). No: Rales, Wheezes Gastrointestinal: Yes: Normal Bowel Sounds, Soft. No: Distention, Tenderness Extremities: Yes: WNL Edema: Yes Edema: LLE: 1+, RLE: 1+ Labs: CBC, BMP 08/18/16 05:47 08/18/16 05:47 INR, PTT INR 1.19 (0.82-1.09) H 08/12/16 14:11 Problem List - Problems (1) Acute and chronic respiratory failure Code(s): J96.20 - ACUTE AND CHR RESP FAILURE, UNSP W HYPOXIA OR HYPERCAPNIA Qualifiers: Respiratory failure complication: hypoxia Qualified Code(s): J96.21 - Acute and chronic respiratory failure with hypoxia (2) Pneumonia Code(s): J18.9 - PNEUMONIA, UNSPECIFIED ORGANISM (3) Chest pain Code(s): R07.9 - CHEST PAIN, UNSPECIFIED (4) Chronic diastolic (congestive) heart failure Code(s): I50.32 - CHRONIC DIASTOLIC (CONGESTIVE) HEART FAILURE (5) COPD (chronic obstructive pulmonary disease) Code(s): J44.9 - CHRONIC OBSTRUCTIVE PULMONARY DISEASE, UNSPECIFIED Qualifiers : COPD type: COPD with acute exacerbation Qualified Code(s): J44.1 - Chronic obstructive pulmonary disease with (acute) exacerbation (6) HTN (hypertension) Code(s): I10 - ESSENTIAL (PRIMARY) HYPERTENSION (7) HLD (hyperlipidemia) Code(s): E78.5 - HYPERLIPIDEMIA, UNSPECIFIED (8) Diabetes Code(s): E11.9 - TYPE 2 DIABETES MELLITUS WITHOUT COMPLICATIONS Qualifiers: Diabetes mellitus type: type 2 Assessment/Plan (1) Acute on chronic respiratory failure -patient with worsening shortness of breath and requiring higher oxygen concentration -lung exam reveals ronchi, ? fluid overload -newly found LV systolic dysfunction on ECHO -will obtain chest x-ray and ABG -will give lasix 40mg IV x1 -case d/w cardiology (2) Pneumonia Assessment/Plan: -full course of antibiotics received Code(s): J18.9 - PNEUMONIA, UNSPECIFIED ORGANISM (3) Chest pain Assessment/Plan: -resolved -pleurisy secondary to pneumonia Code(s): R07.9 - CHEST PAIN, UNSPECIFIED (4) Chronic diastolic (congestive) heart failure Assessment/Plan: -case d/w cardiology -give lasix as above Code(s): I50.32 - CHRONIC DIASTOLIC (CONGESTIVE) HEART FAILURE (5) COPD (chronic obstructive pulmonary disease) Assessment/Plan: -pulmonary following -on prednisone and duonebs -suspect episode currently is from CHF and not COPD -follow up chest x-ray and abg Code(s): J44.9 - CHRONIC OBSTRUCTIVE PULMONARY DISEASE, UNSPECIFIED Qualifiers : COPD type: COPD with acute exacerbation Qualified Code(s): J44.1 - Chronic obstructive pulmonary disease with (acute) exacerbation (6) HTN (hypertension) Assessment/Plan: -amlodipine stopped -on decreased amount of cozaar -toprol xl started -slightly elevated this morning, but not high enough for flash pulmonary edema -continue current regimen, monitor Code(s): I10 - ESSENTIAL (PRIMARY) HYPERTENSION (7) HLD (hyperlipidemia) Assessment/Plan: -continue lipitor Code(s): E78.5 - HYPERLIPIDEMIA, UNSPECIFIED (8) Diabetes -continue diabetic diet -continue metformin and SSI -hyperglycemia secondary to steroids
[2016-08-19 10:03] LABS: ALLENS TEST POSITIVE; ART PUNCT SITE LEFT RADIAL; ARTERIAL BLD GAS O2 SATURATION 90.7 % (90-98.9); ARTERIAL BLOOD GAS BASE EXCESS 6.7 meq/l (-2-2); ARTERIAL BLOOD GAS HCO3 30.9 meq/L (22-26); ARTERIAL BLOOD GAS PO2 59.6 mmHg (70-100); ARTERIAL BLOOD GAS pH 7.46 (7.35-7.45); LPM/O2% 50%; PT. ON O2? YES
[2016-08-19 10:04] LABS: TYPE OF O2 VENTI MASK
[2016-08-19] MEDS ORDERED: FUROSEMIDE 40 MG/4 ML INJECTABLE VIAL ONE (10:07)
[2016-08-19 10:20] LABS: MCH 28.9 pg (25.7-33.7); MCHC 33.1 g/dl (32.0-35.9); MEAN CELL VOLUME 87.3 fl (80-96); MEAN PLT VOLUME 7.7 fl (7.5-11.1); PLATELET COUNT 436 K/MM3 (134-434); RDW 14.7 % (11.9-15.9); WHITE BLOOD COUNT 28.5 K/mm3 (4.0-10.0)
[2016-08-19] MEDS: BUDESONIDE/FORMETEROL FUMARATE 160/4.5 mcg INHALER IH SCH ×2 (10:33→22:25)
[2016-08-19] MEDS: ENOXAPARIN NA (PORCINE) 40 MG/0.4 ML DISP.SYRIN SQ SCH (10:33)
[2016-08-19] MEDS: LOSARTAN POTASSIUM 50 MG TABLET (FP) PO SCH (10:33)
[2016-08-19] MEDS: predniSONE 20 MG TABLET (UD) PO SCH ×2 (10:33→22:25)
[2016-08-19] MEDS: CLOPIDOGREL BISULFATE 75 MG TABLET (FP) PO SCH (10:33)
[2016-08-19] MEDS: METOPROLOL SUCCINATE 25 MG TAB.SR.24H (FP) PO SCH (10:34)
[2016-08-19] MEDS: CHOLECALCIFEROL (VITAMIN D3) 1,000 UNIT TABLET (FP) PO SCH (10:34)
[2016-08-19] MEDS: ALPRAZolam 0.25 MG TABLET PO PRN (10:35)
[2016-08-19 10:58] LABS: CALCIUM 8.7 mg/dL (8.5-10.1); COCKROFT - GAULT 89.17; CREATININE 0.9 mg/dL (0.7-1.3); MAGNESIUM 1.5 mg/dL (1.8-2.4); PHOSPHOROUS 1.9 mg/dL (2.5-4.9)
--- NOTE | 2016-08-19 11:24 | PN ---
Progress Note (short form) - Note Progress Note: Chief Complaint: sob/cp, edema History of Present Illness: no cp palps dizzy; sob and hypoxic this AM, now on ventimask Current Medications Generic Name Dose Route Start Last Admin Trade Name Freq PRN Reason Stop Dose Admin Acetaminophen 650 mg 08/12/16 16:30 Tylenol - PO Q4H PRN FEVER OR PAIN Albuterol Sulfate 1 amp 08/12/16 16:07 08/19/16 09:15 Ventolin 0.083% Nebulizer Soln - NEB 1 amp Q4H PRN Administration SHORT OF BREATH/WHEEZING Albuterol/Ipratropium 1 amp 08/12/16 18:00 08/19/16 11:06 Duoneb - NEB 1 amp QIDR [facility] Administration Alprazolam 0.25 mg 08/15/16 14:00 08/19/16 10:35 Xanax - PO 0.25 mg BID PRN Administration Atorvastatin Calcium 20 mg 08/12/16 22:00 08/18/16 21:58 Lipitor - PO 20 mg HS [facility] Administration Budesonide/Formoterol Fumarate 2 puff 08/12/16 22:00 08/19/16 10:33 Symbicort 160/4.5mcg - IH 2 puff BID [facility] Administration Cholecalciferol 1,000 unit 08/13/16 10:00 08/19/16 10:34 Vitamin D3 - PO 1,000 unit DAILY [facility] Administration Clopidogrel Bisulfate 75 mg 08/13/16 10:00 08/19/16 10:33 Plavix - PO 75 mg DAILY [facility] Administration Enoxaparin Sodium 40 mg 08/13/16 10:00 08/19/16 10:33 Lovenox - SQ 40 mg DAILY [facility] Administration Insulin Aspart 0 vial 08/12/16 16:30 08/19/16 06:22 Novolog Vial Sliding Scale - SQ 1 unit ACHS [facility] Administration Protocol Losartan Potassium 50 mg 08/17/16 10:00 08/19/16 10:33 Cozaar - PO 50 mg DAILY [facility] Administration Metformin HCl 1,000 mg 08/12/16 16:30 08/19/16 06:22 Glucophage - PO 1,000 mg BIDAC [facility] Administration Metoprolol Succinate 25 mg 08/17/16 12:45 08/19/16 10:34 Toprol Xl - PO 25 mg DAILY [facility] Administration Nystatin 500,000 units 08/17/16 18:00 08/19/16 06:22 Nystatin Oral Suspension - PO 500,000 units Q6HPO [facility] Administration Prednisone 20 mg 08/19/16 08:00 08/19/16 10:33 Deltasone - PO 20 mg BID [facility] Administration CBC, [facility] 08/19/16 10:10 Constitutional: Yes: Well Nourished, Calm Cardiovascular: Yes: Regular Rate and Rhythm (soft sounds), S1, S2. No: Gallop , Murmur Respiratory: Yes: scattered rhonchi, nl eff. No: Accessory Muscle Use, Rales, Wheezes Extremities: No: Cold Edema: trace le edema bl Neurological: Yes: Alert, Oriented Psychiatric: No: Agitated no jaundice diaphoresis Labs: CBC, [facility] 08/19/16 10:10 ecg 08/12/16: sr, old rbbb cta chest: no pe, no chf, +left infiltrates echo 04/2014: nl lv, rv tds, mod brian, mod mr, mod tr, rvsp 40-50, mild-mod , mod ar, ao root mild dilatation echo report reviewed: 08/13/16: mod-sev dec LV fn. apical inferior wall AK, mod global HK. NL rv. mod -sev ar. MIld-mod MR, mod TR. RVSP 50-60. bline ao dilation. tele: sr, occ pvcs a/p: 76 m hx htn, copd on home 02, hld, dm, cad s/p remote mi/pci, remote aortic graft endo repair, atrophic left kidney here with sob. pna, copd, sob, hypoxia: -completed course of abx and has been on steroids but this AM sob/hypoxic. 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 Unclear if this is new. - Appears euvolemic. CT without pulmonary edema. - Recommend follow up with outpatient manager background who has access to more recent records. - con't valsartan. have stopped norvasc and replaced with low dose beta ger. Per records, previously had been on metoprolol 100 mg bid so should not significantly worsen pulmonary status. htn: -controlled on current meds hld: -cont home statin atypical chest pain, cad s/p remote mi/pci: -no signs acs, ce's neg x2. cp on initial eval seemed related to msk/pna, not suggestive of cardiac etiology -cont home statin, arb, plavix. adding back bb - Systolic dysfunction. Will need f/u with dr kerr (cardio) for further outpatient work up if this is a new finding. mr, tr, ar, as: -moderate on prior echo, no signs of chf - stable on repeat echo h/o AAA endovasc repair: -outpt monitoring/followup (cirilo). 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
[2016-08-19] MEDS ORDERED: MAGNESIUM SULF 50% (8.12 MEQ/2 ML-1 GM VIAL) IVPB ONE (12:15)
--- NOTE | 2016-08-19 13:39 | PN ---
Progress Note (short form) - Note Progress Note: PULMONARY Episode of hypoxia this AM. Reports a cough different than prior, no production. No fevers or chills but feels sweaty. Last Vital Signs Temp Pulse Resp BP Pulse Ox 98.2 F 86 20 144/82 90 L 08/19/16 09:59 08/19/16 09:59 08/19/16 09:59 08/19/16 09:59 08/19/16 09:45 Intake & Output 08/16/16 08/17/16 08/18/16 08/19/16 23:59 23:59 23:59 23:59 Intake Total 650 1350 450 Output Total 650 500 Balance 0 850 450 Weight 187 lb 193 lb 9.6 oz 195 lb 6.4 oz 196 lb Gen: mildly tachypneic with speaking Heart: RRR Lung: scattered rhonchi Abd: soft, nontender Ext: + edema CBC, BMP 08/19/16 10:10 08/19/16 10:10 Active Medications Acetaminophen (Tylenol -) 650 mg PO Q4H PRN PRN Reason: FEVER OR PAIN Albuterol Sulfate (Ventolin 0.083% Nebulizer Soln -) 1 amp NEB Q4H PRN PRN Reason: SHORT OF BREATH/WHEEZING Last Admin: 08/19/16 09:15 Dose: 1 amp Albuterol/Ipratropium (Duoneb -) 1 amp NEB QIDR [facility] Last Admin: 08/19/16 11:06 Dose: 1 amp Alprazolam (Xanax -) 0.25 mg PO BID PRN Last Admin: 08/19/16 10:35 Dose: 0.25 mg Atorvastatin Calcium (Lipitor -) 20 mg PO HS [facility] Last Admin: 08/18/16 21:58 Dose: 20 mg Budesonide/Formoterol Fumarate (Symbicort 160/4.5mcg -) 2 puff IH BID [facility] Last Admin: 08/19/16 10:33 Dose: 2 puff Cholecalciferol (Vitamin D3 -) 1,000 unit PO DAILY [facility] Last Admin: 08/19/16 10:34 Dose: 1,000 unit Clopidogrel Bisulfate (Plavix -) 75 mg PO DAILY [facility] Last Admin: 08/19/16 10:33 Dose: 75 mg Enoxaparin Sodium (Lovenox -) 40 mg SQ DAILY [facility] Last Admin: 08/19/16 10:33 Dose: 40 mg Insulin Aspart (Novolog Vial Sliding Scale -) 0 vial SQ ACHS [facility] PRN Reason: Protocol Last Admin: 08/19/16 12:53 Dose: 1 unit Losartan Potassium (Cozaar -) 50 mg PO DAILY [facility] Last Admin: 08/19/16 10:33 Dose: 50 mg Metformin HCl (Glucophage -) 1,000 mg PO BIDAC [facility] Last Admin: 08/19/16 06:22 Dose: 1,000 mg Metoprolol Succinate (Toprol Xl -) 25 mg PO DAILY [facility] Last Admin: 08/19/16 10:34 Dose: 25 mg Nystatin (Nystatin Oral Suspension -) 500,000 units PO Q6HPO [facility] Last Admin: 08/19/16 12:55 Dose: 500,000 units Potassium Phos/Sodium Phos (Phos-Nak Packet -) 1 packet PO TID [facility] Prednisone (Deltasone -) 20 mg PO BID [facility] Last Admin: 08/19/16 10:33 Dose: 20 mg A/P Pneumonia Severe COPD Emphysema LV Systolic/Diastolic Dysfunction Pulmonary HTN Elevated LFTs - antibiotics per ID - inhaled bronchodilators - prednisone taper - lasix as needed - O2 to keep SPo2 >90% - DVT prophylaxis - will need outpt f/u of chest imaging Problem List - Problems (1) Chest pain Code(s): R07.9 - CHEST PAIN, UNSPECIFIED (2) COPD (chronic obstructive pulmonary disease) Code(s): J44.9 - CHRONIC OBSTRUCTIVE PULMONARY DISEASE, UNSPECIFIED Qualifiers : COPD type: COPD with acute exacerbation Qualified Code(s): J44.1 - Chronic obstructive pulmonary disease with (acute) exacerbation (3) Chronic respiratory failure with hypoxia Code(s): J96.11 - CHRONIC RESPIRATORY FAILURE WITH HYPOXIA (4) Elevated liver enzymes Code(s): R74.8 - ABNORMAL LEVELS OF OTHER SERUM ENZYMES (5) Chronic diastolic (congestive) heart failure Code(s): I50.32 - CHRONIC DIASTOLIC (CONGESTIVE) HEART FAILURE (6) Pulmonary hypertension Code(s): I27.2 - OTHER SECONDARY PULMONARY HYPERTENSION
[2016-08-19 14:42] LABS: PLATELET ESTIMATE ADEQUATE (NORMAL)
[2016-08-19] MEDS: NAPH,MB-DB/K PH,MBDB POWDER PACKET PO SCH ×2 (15:17→22:25)
--- NOTE | 2016-08-19 19:06 | CONSULT ---
Consult Consult Specialty:: infectious diseases Reason for Consultation:: leukocytosis,lt sided chest pain - History of Present Illness Chief Complaint: sob,pleurtic pain left side History of Present Illness: 76 year old male who comes in with increasing dyspnea on exertion and left sided chest pain. patient was admitted and treated for copd according to the nots patient was doing well and on steroids and was found to have increased wbc and i was called to evaluate and find the cause of the same patient was worked up and found to ahve left sided pneumonia also the pain on the left side loks like pleuritic chest pain currently patient is stable he does have sob and feels tired he does not have any other issues,he is producing sputum but whitish in color - History Source History Provided By: Patient Limitations to Obtaining History: No Limitations - Past Medical History Cardio/Vascular: Yes: Aneurysm, CAD, HTN, Hyperlipdemia, [place] Pulmonary: Yes: COPD, O2 Dependent Renal/: Yes: Renal Inusuff - Past Surgical History Past Surgical History: Yes: Hernia Repair, Stent - Alcohol/Substance Use Hx Alcohol Use: No History of Substance Use: reports: None - Smoking History Smoking history: Former smoker Have you smoked in the past 12 months: No Aproximately how many cigarettes per day: 20 If you are a former smoker, when did you quit?: 2013 - Social History Usual Living Arrangement: Alone ADL: Independent History of Recent Travel: No Home Medications - Allergies Allergies/Adverse Reactions: Allergies Allergy/AdvReac Type Severity Reaction Status Date / Time No Known Allergies Allergy Verified 08/12/16 13:25 - Home Medications Home Medications: Ambulatory Orders Albuterol Sulfate [Proair Hfa -] 2 ih IH DAILY PRN #0 [email or web address] 02/24/12 Atorvastatin Ca [Lipitor] 20 mg PO HS #0 tablet 02/24/12 Amlodipine Besylate [Norvasc -] 10 mg PO HS 11/18/14 Metformin HCl [Glucophage -] 1,000 mg PO BIDAC 11/18/14 Alprazolam 0.25 mg PO PRN PRN 05/29/15 Cholecalciferol (Vitamin D3) [Vitamin D3] 1,000 unit PO HS 05/29/15 Clopidogrel Bisulfate [Plavix -] 75 mg PO HS 08/12/16 Fluticasone/Salmeterol [Advair Hfa 230-21 Mcg Inhaler] 2 inh PO BID 08/12/16 Ipratropium/Albuterol Sulfate [Iprat-Albut 0.5-3(2.5) mg/3 ml] 3 ml IH BID PRN 08/12/16 Magnesium Oxide [Mag-Ox -] 400 mg PO HS 08/12/16 Losartan Potassium [Cozaar -] 50 mg PO DAILY #30 tablet 08/18/16 Metoprolol Succinate [Toprol XL -] 25 mg PO DAILY #30 tab.sr 08/18/16 Prednisone [Deltasone -] 5 mg PO ASDIR #78 tab 08/18/16 Family Disease History - Family Disease History Family Disease History: CA: Sister Review of Systems - Review of Systems Constitutional: reports: No Symptoms Eyes: reports: No Symptoms HENT: reports: No Symptoms Neck: reports: No Symptoms Cardiovascular: reports: No Symptoms Respiratory: reports: Cough, SOB, SOB on Exertion Gastrointestinal: reports: No Symptoms Genitourinary: reports: No Symptoms Breasts: reports: No Symptoms Reported Musculoskeletal: reports: No Symptoms Integumentary: reports: No Symptoms Neurological: reports: No Symptoms Endocrine: reports: No Symptoms Hematology/Lymphatic: reports: No Symptoms Psychiatric: reports: No Symptoms Physical Exam Vital Signs: Vital Signs Temperature 98.3 F 08/19/16 14:32 Pulse Rate 101 H 08/19/16 14:32 Respiratory Rate 20 08/19/16 14:32 Blood Pressure 89/56 08/19/16 14:32 O2 Sat by Pulse Oximetry (%) 90 L 08/19/16 09:45 Constitutional: Yes: Well Nourished, No Distress, Calm Neck: Yes: Supple Cardiovascular: Yes: S1, S2 Respiratory: Yes: Regular, On Nasal O2, Poor Air Entry, Rhonchi Gastrointestinal: Yes: Normal Bowel Sounds, Soft Musculoskeletal: Yes: WNL Extremities: Yes: WNL Neurological: Yes: Alert, Oriented Psychiatric: Yes: Alert, Oriented Labs: CBC, BMP 08/19/16 10:10 08/19/16 10:10 Imaging - Results Chest X-ray: Report Reviewed, Image Reviewed Assessment/Plan Problem List - Problems (1) Acute and chronic respiratory failure Code(s): J96.20 - ACUTE AND CHR RESP FAILURE, UNSP W HYPOXIA OR HYPERCAPNIA Qualifiers: Respiratory failure complication: hypoxia Qualified Code(s): J96.21 - Acute and chronic respiratory failure with hypoxia (2) Pneumonia Code(s): J18.9 - PNEUMONIA, UNSPECIFIED ORGANISM (3) Chest pain Code(s): R07.9 - CHEST PAIN, UNSPECIFIED (4) Chronic diastolic (congestive) heart failure Code(s): I50.32 - CHRONIC DIASTOLIC (CONGESTIVE) HEART FAILURE (5) COPD (chronic obstructive pulmonary disease) Code(s): J44.9 - CHRONIC OBSTRUCTIVE PULMONARY DISEASE, UNSPECIFIED Qualifiers : COPD type: COPD with acute exacerbation Qualified Code(s): J44.1 - Chronic obstructive pulmonary disease with (acute) exacerbation (6) HTN (hypertension) Code(s): I10 - ESSENTIAL (PRIMARY) HYPERTENSION (7) HLD (hyperlipidemia) Code(s): E78.5 - HYPERLIPIDEMIA, UNSPECIFIED (8) Diabetes Code(s): E11.9 - TYPE 2 DIABETES MELLITUS WITHOUT COMPLICATIONS Qualifiers: Diabetes mellitus type: type 2 after looking at the patient and xray will start patient on treatment plan close watch on the patient will start abx incentive eddie resp physio rest as per primary team
[2016-08-19] MEDS: PIPERACILLIN/TAZOB 3.375 GM 50 ML IVPB SCH (20:05)
[2016-08-19] MEDS ORDERED: PT OWN MED DRAWER 7, Y5N ONE (22:17)
[2016-08-19] MEDS: ATORVASTATIN CA 20 MG TABLET (FP) PO SCH (22:24)
[2016-08-20] MEDS: NYSTATIN 500,000 UNITS/5 ML SUSPENSION PO SCH ×4 (00:22→17:08)
[2016-08-20] MEDS: PIPERACILLIN/TAZOB 3.375 GM 50 ML IVPB SCH ×3 (01:20→17:35)
[2016-08-20] MEDS: ALBUTEROL SO4 2.5/IPRATROPIUM 0.5 INH SOL 3 ML VIAL.NEB. NEB SCH ×3 (06:15→17:55)
[2016-08-20] MEDS ORDERED: INSULIN (NOVOLOG) ASPART 100 UNITS/ML 10ML VIAL ONE ×2 (06:17→12:24)
[2016-08-20] MEDS: metFORMIN HCL 500 MG TABLET (FP) PO SCH ×2 (06:20→17:02)
[2016-08-20] MEDS: NAPH,MB-DB/K PH,MBDB POWDER PACKET PO SCH ×3 (06:20→21:19)
[2016-08-20] MEDS: INSULIN SLIDING SCALE (NOVOLOG) 1 VIAL SQ SCH ×4 (06:20→21:18)
[2016-08-20 08:14] LABS: MCH 28.5 pg (25.7-33.7); MCHC 32.2 g/dl (32.0-35.9); MEAN CELL VOLUME 88.5 fl (80-96); MEAN PLT VOLUME 7.8 fl (7.5-11.1); PLATELET COUNT 351 K/MM3 (134-434); RDW 15.4 % (11.9-15.9)
[2016-08-20 08:24] LABS: WHITE BLOOD COUNT 35.2 K/mm3 (4.0-10.0)
[2016-08-20 08:53] LABS: CALCIUM 8.5 mg/dL (8.5-10.1); MAGNESIUM 2.1 mg/dL (1.8-2.4)
[2016-08-20 08:55] LABS: COCKROFT - GAULT 65.65; CREATININE 1.2 mg/dL (0.7-1.3); PHOSPHOROUS 3.2 mg/dL (2.5-4.9)
[2016-08-20 09:18] LABS: PLATELET ESTIMATE INCREASED (NORMAL)
[2016-08-20] MEDS: ENOXAPARIN NA (PORCINE) 40 MG/0.4 ML DISP.SYRIN SQ SCH (09:26)
[2016-08-20] MEDS: CHOLECALCIFEROL (VITAMIN D3) 1,000 UNIT TABLET (FP) PO SCH (09:26)
[2016-08-20] MEDS: predniSONE 20 MG TABLET (UD) PO SCH ×2 (09:26→21:18)
[2016-08-20] MEDS: CLOPIDOGREL BISULFATE 75 MG TABLET (FP) PO SCH (09:26)
[2016-08-20] MEDS: LOSARTAN POTASSIUM 50 MG TABLET (FP) PO SCH (09:26)
[2016-08-20] MEDS: BUDESONIDE/FORMETEROL FUMARATE 160/4.5 mcg INHALER IH SCH ×2 (09:26→21:23)
[2016-08-20] MEDS: METOPROLOL SUCCINATE 25 MG TAB.SR.24H (FP) PO SCH (09:26)
--- NOTE | 2016-08-20 10:36 | PN ---
Progress Note (short form) - Note Progress Note: Chief Complaint: sob/cp, edema History of Present Illness: no cp palps dizzy; sob/hypoxia improved today, on NC Current Medications Generic Name Dose Route Start Last Admin Trade Name Freq PRN Reason Stop Dose Admin Acetaminophen 650 mg 08/12/16 16:30 Tylenol - PO Q4H PRN FEVER OR PAIN Albuterol Sulfate 1 amp 08/12/16 16:07 08/19/16 09:15 Ventolin 0.083% Nebulizer Soln - NEB 1 amp Q4H PRN Administration SHORT OF BREATH/WHEEZING Albuterol/Ipratropium 1 amp 08/12/16 18:00 08/20/16 06:15 Duoneb - NEB 1 amp QIDR [facility] Administration Alprazolam 0.25 mg 08/15/16 14:00 08/19/16 10:35 Xanax - PO 0.25 mg BID PRN Administration Atorvastatin Calcium 20 mg 08/12/16 22:00 08/19/16 22:24 Lipitor - PO 20 mg HS [facility] Administration Budesonide/Formoterol Fumarate 2 puff 08/12/16 22:00 08/20/16 09:26 Symbicort 160/4.5mcg - IH 2 puff BID [facility] Administration Cholecalciferol 1,000 unit 08/13/16 10:00 08/20/16 09:26 Vitamin D3 - PO 1,000 unit DAILY [facility] Administration Clopidogrel Bisulfate 75 mg 08/13/16 10:00 08/20/16 09:26 Plavix - PO 75 mg DAILY [facility] Administration Enoxaparin Sodium 40 mg 08/13/16 10:00 08/20/16 09:26 Lovenox - SQ 40 mg DAILY [facility] Administration Piperacillin Sod/Tazobactam Sod 50 mls @ 100 mls/hr 08/19/16 19:15 08/20/16 09: 27 Zosyn 3.375gm Ivpb (Pre-Docked) IVPB 100 mls/hr Q8H-IV [facility] Administration Protocol Insulin Aspart 0 vial 08/12/16 16:30 08/20/16 06:20 Novolog Vial Sliding Scale - SQ 3 units ACHS [facility] Administration Protocol Losartan Potassium 50 mg 08/17/16 10:00 08/20/16 09:26 Cozaar - PO 50 mg DAILY [facility] Administration Metformin HCl 1,000 mg 08/12/16 16:30 08/20/16 06:20 Glucophage - PO 1,000 mg BIDAC [facility] Administration Metoprolol Succinate 25 mg 08/17/16 12:45 08/20/16 09:26 Toprol Xl - PO 25 mg DAILY [facility] Administration Nystatin 500,000 units 08/17/16 18:00 08/20/16 06:20 Nystatin Oral Suspension - PO 500,000 units Q6HPO [facility] Administration Potassium Phos/Sodium Phos 1 packet 08/19/16 14:00 08/20/16 06:20 Phos-Nak Packet - PO 1 packet TID [facility] Administration Prednisone 20 mg 08/19/16 08:00 08/20/16 09:26 Deltasone - PO 20 mg BID [facility] Administration Vital Signs Period Temp Pulse Resp BP Sys/Lopez Pulse Ox Last 24 Hr 98.1 F-99.2 F 75-101 18-20 89-123/56-65 96 Constitutional: Yes: Well Nourished, Calm Cardiovascular: Yes: Regular Rate and Rhythm (soft sounds), S1, S2. No: Gallop , Murmur Respiratory: Yes: scattered rhonchi, nl eff. No: Accessory Muscle Use, Rales, Wheezes Extremities: No: Cold Edema: trace le edema bl Neurological: Yes: Alert, Oriented Psychiatric: No: Agitated no jaundice diaphoresis Labs: 08/20/16 06:20 08/20/16 06:20 ecg 08/12/16: sr, old rbbb cta chest: no pe, no chf, +left infiltrates echo 04/2014: nl lv, rv tds, mod brian, mod mr, mod tr, rvsp 40-50, mild-mod , mod ar, ao root mild dilatation echo report reviewed: 08/13/16: mod-sev dec LV fn. apical inferior wall AK, mod global HK. NL rv. mod -sev ar. MIld-mod MR, mod TR. RVSP 50-60. bline ao dilation. tele: sr, occ pvcs a/p: 76 m hx htn, copd on home 02, hld, dm, cad s/p remote mi/pci, remote aortic graft endo repair, atrophic left kidney here with sob. 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 Unclear if this is new. - Appears euvolemic. CT without pulmonary edema. - Recommend follow up with outpatient drier transfer car operator who has access to more recent records. - con't valsartan. have stopped norvasc and replaced with low dose beta ger. Per records, previously had been on metoprolol 100 mg bid so should not significantly worsen pulmonary status. htn: -controlled on current meds hld: -cont home statin atypical chest pain, cad s/p remote mi/pci: -no signs acs, ce's neg x2. cp on initial eval seemed related to msk/pna, not suggestive of cardiac etiology -cont home statin, arb, plavix. adding back bb - Systolic dysfunction. Will need f/u with dr kerr (cardio) for further outpatient work up if this is a new finding. mr, tr, ar, as: -moderate on prior echo, no signs of chf - stable on repeat echo h/o AAA endovasc repair: -outpt monitoring/followup (cirilo). 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
--- NOTE | 2016-08-20 11:09 | PN ---
Progress Note, Physician History of Present Illness: improving says he is feeling better still needs resp support cough improving - Current Medication List Current Medications: Active Medications Acetaminophen (Tylenol -) 650 mg PO Q4H PRN PRN Reason: FEVER OR PAIN Albuterol Sulfate (Ventolin 0.083% Nebulizer Soln -) 1 amp NEB Q4H PRN PRN Reason: SHORT OF BREATH/WHEEZING Last Admin: 08/19/16 09:15 Dose: 1 amp Albuterol/Ipratropium (Duoneb -) 1 amp NEB QIDR [facility] Last Admin: 08/20/16 06:15 Dose: 1 amp Alprazolam (Xanax -) 0.25 mg PO BID PRN Last Admin: 08/19/16 10:35 Dose: 0.25 mg Atorvastatin Calcium (Lipitor -) 20 mg PO HS [facility] Last Admin: 08/19/16 22:24 Dose: 20 mg Budesonide/Formoterol Fumarate (Symbicort 160/4.5mcg -) 2 puff IH BID [facility] Last Admin: 08/20/16 09:26 Dose: 2 puff Cholecalciferol (Vitamin D3 -) 1,000 unit PO DAILY [facility] Last Admin: 08/20/16 09:26 Dose: 1,000 unit Clopidogrel Bisulfate (Plavix -) 75 mg PO DAILY [facility] Last Admin: 08/20/16 09:26 Dose: 75 mg Enoxaparin Sodium (Lovenox -) 40 mg SQ DAILY [facility] Last Admin: 08/20/16 09:26 Dose: 40 mg Piperacillin Sod/Tazobactam Sod (Zosyn 3.375gm Ivpb (Pre-Docked)) 50 mls @ 100 mls/hr IVPB Q8H-IV [facility] PRN Reason: Protocol Last Admin: 08/20/16 09:27 Dose: 100 mls/hr Insulin Aspart (Novolog Vial Sliding Scale -) 0 vial SQ ACHS [facility] PRN Reason: Protocol Last Admin: 08/20/16 06:20 Dose: 3 units Losartan Potassium (Cozaar -) 50 mg PO DAILY [facility] Last Admin: 08/20/16 09:26 Dose: 50 mg Metformin HCl (Glucophage -) 1,000 mg PO BIDAC [facility] Last Admin: 08/20/16 06:20 Dose: 1,000 mg Metoprolol Succinate (Toprol Xl -) 25 mg PO DAILY [facility] Last Admin: 08/20/16 09:26 Dose: 25 mg Nystatin (Nystatin Oral Suspension -) 500,000 units PO Q6HPO [facility] Last Admin: 08/20/16 06:20 Dose: 500,000 units Potassium Phos/Sodium Phos (Phos-Nak Packet -) 1 packet PO TID [facility] Last Admin: 08/20/16 06:20 Dose: 1 packet Prednisone (Deltasone -) 20 mg PO BID [facility] Last Admin: 08/20/16 09:26 Dose: 20 mg - Objective Vital Signs: Vital Signs Temperature 99.2 F 08/20/16 05:45 Pulse Rate 75 08/20/16 05:45 Respiratory Rate 18 08/20/16 05:45 Blood Pressure 123/65 08/20/16 05:45 O2 Sat by Pulse Oximetry (%) 96 08/19/16 21:00 Constitutional: Yes: No Distress, Calm Cardiovascular: Yes: S1, S2 Respiratory: Yes: Regular, On Nasal O2, Poor Air Entry, Rhonchi Gastrointestinal: Yes: Normal Bowel Sounds, Soft Musculoskeletal: Yes: WNL Extremities: Yes: WNL Neurological: Yes: Alert, Oriented Psychiatric: Yes: Alert, Oriented Labs: CBC, BMP 08/20/16 06:20 08/20/16 06:20 INR, PTT INR 1.19 (0.82-1.09) H 08/12/16 14:11 - ....Imaging Chest X-ray: Report Reviewed, Image Reviewed Assessment/Plan Problem List - Problems (1) Acute and chronic respiratory failure Code(s): J96.20 - ACUTE AND CHR RESP FAILURE, UNSP W HYPOXIA OR HYPERCAPNIA Qualifiers: Respiratory failure complication: hypoxia Qualified Code(s): J96.21 - Acute and chronic respiratory failure with hypoxia (2) Pneumonia Code(s): J18.9 - PNEUMONIA, UNSPECIFIED ORGANISM (3) Chest pain Code(s): R07.9 - CHEST PAIN, UNSPECIFIED (4) Chronic diastolic (congestive) heart failure Code(s): I50.32 - CHRONIC DIASTOLIC (CONGESTIVE) HEART FAILURE (5) COPD (chronic obstructive pulmonary disease) Code(s): J44.9 - CHRONIC OBSTRUCTIVE PULMONARY DISEASE, UNSPECIFIED Qualifiers : COPD type: COPD with acute exacerbation Qualified Code(s): J44.1 - Chronic obstructive pulmonary disease with (acute) exacerbation (6) HTN (hypertension) Code(s): I10 - ESSENTIAL (PRIMARY) HYPERTENSION (7) HLD (hyperlipidemia) Code(s): E78.5 - HYPERLIPIDEMIA, UNSPECIFIED (8) Diabetes Code(s): E11.9 - TYPE 2 DIABETES MELLITUS WITHOUT COMPLICATIONS Qualifiers: Diabetes mellitus type: type 2 after looking at the patient and xray will start patient on treatment plan conitnue abx incentive eddie physio resp therapy
--- NOTE | 2016-08-20 12:28 | PN ---
Progress Note, Physician History of Present Illness: PULMONARY ALERT,FEELING BETTER TODAY,LESS COUGH,LESS DYSPNEIC.+ C/O LEFT SIDED CHEST PAIN WITH COUGH - Current Medication List Current Medications: Active Medications Acetaminophen (Tylenol -) 650 mg PO Q4H PRN PRN Reason: FEVER OR PAIN Albuterol Sulfate (Ventolin 0.083% Nebulizer Soln -) 1 amp NEB Q4H PRN PRN Reason: SHORT OF BREATH/WHEEZING Last Admin: 08/19/16 09:15 Dose: 1 amp Albuterol/Ipratropium (Duoneb -) 1 amp NEB QIDR [facility] Last Admin: 08/20/16 11:13 Dose: 1 amp Alprazolam (Xanax -) 0.25 mg PO BID PRN Last Admin: 08/19/16 10:35 Dose: 0.25 mg Atorvastatin Calcium (Lipitor -) 20 mg PO HS [facility] Last Admin: 08/19/16 22:24 Dose: 20 mg Budesonide/Formoterol Fumarate (Symbicort 160/4.5mcg -) 2 puff IH BID [facility] Last Admin: 08/20/16 09:26 Dose: 2 puff Cholecalciferol (Vitamin D3 -) 1,000 unit PO DAILY [facility] Last Admin: 08/20/16 09:26 Dose: 1,000 unit Clopidogrel Bisulfate (Plavix -) 75 mg PO DAILY [facility] Last Admin: 08/20/16 09:26 Dose: 75 mg Enoxaparin Sodium (Lovenox -) 40 mg SQ DAILY [facility] Last Admin: 08/20/16 09:26 Dose: 40 mg Piperacillin Sod/Tazobactam Sod (Zosyn 3.375gm Ivpb (Pre-Docked)) 50 mls @ 100 mls/hr IVPB Q8H-IV [facility] PRN Reason: Protocol Last Admin: 08/20/16 09:27 Dose: 100 mls/hr Insulin Aspart (Novolog Vial Sliding Scale -) 0 vial SQ ACHS [facility] PRN Reason: Protocol Last Admin: 08/20/16 06:20 Dose: 3 units Losartan Potassium (Cozaar -) 50 mg PO DAILY [facility] Last Admin: 08/20/16 09:26 Dose: 50 mg Metformin HCl (Glucophage -) 1,000 mg PO BIDAC [facility] Last Admin: 08/20/16 06:20 Dose: 1,000 mg Metoprolol Succinate (Toprol Xl -) 25 mg PO DAILY [facility] Last Admin: 08/20/16 09:26 Dose: 25 mg Nystatin (Nystatin Oral Suspension -) 500,000 units PO Q6HPO [facility] Last Admin: 08/20/16 06:20 Dose: 500,000 units Potassium Phos/Sodium Phos (Phos-Nak Packet -) 1 packet PO TID [facility] Last Admin: 08/20/16 06:20 Dose: 1 packet Prednisone (Deltasone -) 20 mg PO BID [facility] Last Admin: 08/20/16 09:26 Dose: 20 mg - Objective Vital Signs: Vital Signs Temperature 98.8 F 08/20/16 10:00 Pulse Rate 68 08/20/16 11:18 Respiratory Rate 18 08/20/16 10:00 Blood Pressure 124/83 08/20/16 10:00 O2 Sat by Pulse Oximetry (%) 93 L 08/20/16 11:18 Constitutional: Yes: Well Nourished, Calm Eyes: Yes: WNL HENT: Yes: WNL Neck: Yes: WNL Cardiovascular: Yes: Regular Rate and Rhythm, S1, S2 Respiratory: Yes: Rhonchi (SCATTERED ERIC RHONCHI) Gastrointestinal: Yes: Normal Bowel Sounds, Soft Extremities: Yes: WNL Edema: Yes Labs: CBC, BMP 08/20/16 06:20 08/20/16 06:20 INR, PTT INR 1.19 (0.82-1.09) H 08/12/16 14:11 Laboratory Tests 08/19/16 10:00 ABG pH 7.46 H ABG pCO2 at Pt Temp 43.6 ABG pO2 at Pt Temp 59.6 L ABG HCO3 30.9 H ABG O2 Sat (Measured) 90.7 ABG Base Excess 6.7 H O2 Delivery Device Venti mask Oxygen Flow Rate 50% - ....Imaging Chest X-ray: Report Reviewed, Image Reviewed ([employer]) Problem List - Problems (1) Acute and chronic respiratory failure Code(s): J96.20 - ACUTE AND CHR RESP FAILURE, UNSP W HYPOXIA OR HYPERCAPNIA Qualifiers: Respiratory failure complication: hypoxia Qualified Code(s): J96.21 - Acute and chronic respiratory failure with hypoxia Assessment/Plan Problem List - Problems (1) Chest pain Code(s): R07.9 - CHEST PAIN, UNSPECIFIED (2) COPD (chronic obstructive pulmonary disease) Code(s): J44.9 - CHRONIC OBSTRUCTIVE PULMONARY DISEASE, UNSPECIFIED (3) Chronic respiratory failure with hypoxia Code(s): J96.11 - CHRONIC RESPIRATORY FAILURE WITH HYPOXIA (4) Elevated liver enzymes Code(s): R74.8 - ABNORMAL LEVELS OF OTHER SERUM ENZYMES (5) Chronic diastolic (congestive) heart failure Code(s): I50.32 - CHRONIC DIASTOLIC (CONGESTIVE) HEART FAILURE (6) Pulmonary hypertension Code(s): I27.2 - OTHER SECONDARY PULMONARY HYPERTENSION Assessment/Plan Chest Pain Acute on chronic hypoxemic respiratory failure Pneumonia Severe COPD Emphysema LV Diastolic Dysfunction Pulmonary HTN Elevated LFTs improving - inhaled bronchodilators - O2 to keep SPo2 >90% - DVT prophylaxis - cont steroid taper - antibiotics as per ID - f/u chest x-ray DR LOUISE
--- NOTE | 2016-08-20 14:15 | PN ---
Progress Note, Physician Chief Complaint: Mr Varma says he is feeling better today. Says his breathing is much improved. No cp or n/v. - Current Medication List Current Medications: Active Medications Acetaminophen (Tylenol -) 650 mg PO Q4H PRN PRN Reason: FEVER OR PAIN Albuterol Sulfate (Ventolin 0.083% Nebulizer Soln -) 1 amp NEB Q4H PRN PRN Reason: SHORT OF BREATH/WHEEZING Last Admin: 08/19/16 09:15 Dose: 1 amp Albuterol/Ipratropium (Duoneb -) 1 amp NEB QIDR [facility] Last Admin: 08/20/16 11:13 Dose: 1 amp Alprazolam (Xanax -) 0.25 mg PO BID PRN Last Admin: 08/19/16 10:35 Dose: 0.25 mg Atorvastatin Calcium (Lipitor -) 20 mg PO HS [facility] Last Admin: 08/19/16 22:24 Dose: 20 mg Budesonide/Formoterol Fumarate (Symbicort 160/4.5mcg -) 2 puff IH BID [facility] Last Admin: 08/20/16 09:26 Dose: 2 puff Cholecalciferol (Vitamin D3 -) 1,000 unit PO DAILY [facility] Last Admin: 08/20/16 09:26 Dose: 1,000 unit Clopidogrel Bisulfate (Plavix -) 75 mg PO DAILY [facility] Last Admin: 08/20/16 09:26 Dose: 75 mg Enoxaparin Sodium (Lovenox -) 40 mg SQ DAILY [facility] Last Admin: 08/20/16 09:26 Dose: 40 mg Piperacillin Sod/Tazobactam Sod (Zosyn 3.375gm Ivpb (Pre-Docked)) 50 mls @ 100 mls/hr IVPB Q8H-IV [facility] PRN Reason: Protocol Last Admin: 08/20/16 09:27 Dose: 100 mls/hr Insulin Aspart (Novolog Vial Sliding Scale -) 0 vial SQ ACHS [facility] PRN Reason: Protocol Last Admin: 08/20/16 12:25 Dose: 3 units Losartan Potassium (Cozaar -) 50 mg PO DAILY [facility] Last Admin: 08/20/16 09:26 Dose: 50 mg Metformin HCl (Glucophage -) 1,000 mg PO BIDAC [facility] Last Admin: 08/20/16 06:20 Dose: 1,000 mg Metoprolol Succinate (Toprol Xl -) 25 mg PO DAILY [facility] Last Admin: 08/20/16 09:26 Dose: 25 mg Nystatin (Nystatin Oral Suspension -) 500,000 units PO Q6HPO [facility] Last Admin: 08/20/16 12:26 Dose: 500,000 units Potassium Phos/Sodium Phos (Phos-Nak Packet -) 1 packet PO TID [facility] Last Admin: 08/20/16 06:20 Dose: 1 packet Prednisone (Deltasone -) 20 mg PO BID [facility] Last Admin: 08/20/16 09:26 Dose: 20 mg - Objective Vital Signs: Vital Signs Temperature 97.5 F L 08/20/16 13:55 Pulse Rate 102 H 08/20/16 13:55 Respiratory Rate 20 08/20/16 13:55 Blood Pressure 105/59 08/20/16 13:55 O2 Sat by Pulse Oximetry (%) 93 L 08/20/16 11:18 Constitutional: Yes: Well Nourished, No Distress, Calm Cardiovascular: Yes: Regular Rate and Rhythm. No: Gallop, Murmur, Rub Respiratory: Yes: Regular, On Nasal O2, Rhonchi (slight). No: Rales, Wheezes Gastrointestinal: Yes: Normal Bowel Sounds, Soft. No: Distention, Tenderness Extremities: Yes: WNL Edema: Yes Edema: LLE: 1+, RLE: 1+ Labs: CBC, BMP 08/20/16 06:20 08/20/16 06:20 INR, PTT INR 1.19 (0.82-1.09) H 08/12/16 14:11 Problem List - Problems (1) Acute and chronic respiratory failure Code(s): J96.20 - ACUTE AND CHR RESP FAILURE, UNSP W HYPOXIA OR HYPERCAPNIA Qualifiers: Respiratory failure complication: hypoxia Qualified Code(s): J96.21 - Acute and chronic respiratory failure with hypoxia (2) Pneumonia Code(s): J18.9 - PNEUMONIA, UNSPECIFIED ORGANISM (3) Chest pain Code(s): R07.9 - CHEST PAIN, UNSPECIFIED (4) Chronic diastolic (congestive) heart failure Code(s): I50.32 - CHRONIC DIASTOLIC (CONGESTIVE) HEART FAILURE (5) COPD (chronic obstructive pulmonary disease) Code(s): J44.9 - CHRONIC OBSTRUCTIVE PULMONARY DISEASE, UNSPECIFIED Qualifiers : COPD type: COPD with acute exacerbation Qualified Code(s): J44.1 - Chronic obstructive pulmonary disease with (acute) exacerbation (6) HTN (hypertension) Code(s): I10 - ESSENTIAL (PRIMARY) HYPERTENSION (7) HLD (hyperlipidemia) Code(s): E78.5 - HYPERLIPIDEMIA, UNSPECIFIED (8) Diabetes Code(s): E11.9 - TYPE 2 DIABETES MELLITUS WITHOUT COMPLICATIONS Qualifiers: Diabetes mellitus type: type 2 Assessment/Plan (1) Acute on chronic respiratory failure -currently much improved -continue oxygen support -wean prednisone -appreciate pulmonary assistance, note reviewed (2) Pneumonia Assessment/Plan: -patient finished course of rocephin -however with worsening leukocytosis -case d/w Dr Levy -placed on zosyn Code(s): J18.9 - PNEUMONIA, UNSPECIFIED ORGANISM (3) Chest pain Assessment/Plan: -resolved -pleurisy secondary to pneumonia Code(s): R07.9 - CHEST PAIN, UNSPECIFIED (4) Chronic diastolic (congestive) heart failure Assessment/Plan: -cardiology following -no need for lasix Code(s): I50.32 - CHRONIC DIASTOLIC (CONGESTIVE) HEART FAILURE (5) COPD (chronic obstructive pulmonary disease) Assessment/Plan: -much improved today -pulmonary following Code(s): J44.9 - CHRONIC OBSTRUCTIVE PULMONARY DISEASE, UNSPECIFIED Qualifiers : COPD type: COPD with acute exacerbation Qualified Code(s): J44.1 - Chronic obstructive pulmonary disease with (acute) exacerbation (6) HTN (hypertension) Assessment/Plan: -continue cozaar and toprol xl Code(s): I10 - ESSENTIAL (PRIMARY) HYPERTENSION (7) HLD (hyperlipidemia) Assessment/Plan: -continue lipitor Code(s): E78.5 - HYPERLIPIDEMIA, UNSPECIFIED (8) Diabetes -continue diabetic diet -continue metformin and SSI -hyperglycemia secondary to steroids
[2016-08-20] MEDS: ATORVASTATIN CA 20 MG TABLET (FP) PO SCH (21:18)
[2016-08-20] MEDS: ALPRAZolam 0.25 MG TABLET PO PRN (21:20)
[2016-08-20] MEDS: ALBUTEROL SO4 0.083% IH SOL 2.5 MG/3 ML VIAL.NEB. NEB PRN (21:21)
[2016-08-21] MEDS: NYSTATIN 500,000 UNITS/5 ML SUSPENSION PO SCH ×4 (00:44→17:01)
[2016-08-21] MEDS: PIPERACILLIN/TAZOB 3.375 GM 50 ML IVPB SCH ×3 (02:16→17:01)
[2016-08-21] MEDS: ALBUTEROL SO4 2.5/IPRATROPIUM 0.5 INH SOL 3 ML VIAL.NEB. NEB SCH ×3 (02:17→12:01)
[2016-08-21] MEDS: NAPH,MB-DB/K PH,MBDB POWDER PACKET PO SCH ×3 (06:18→21:14)
[2016-08-21] MEDS: metFORMIN HCL 500 MG TABLET (FP) PO SCH ×2 (06:19→17:00)
[2016-08-21] MEDS: INSULIN SLIDING SCALE (NOVOLOG) 1 VIAL SQ SCH ×4 (06:20→21:14)
[2016-08-21 07:24] LABS: BASOPHIL 0.2 % (0-2.0); MCH 29.2 pg (25.7-33.7); MCHC 32.6 g/dl (32.0-35.9); MEAN CELL VOLUME 89.5 fl (80-96); NEUTROPHILS 94.1 % (42.8-82.8); PLATELET COUNT 327 K/MM3 (134-434); RDW 15.1 % (11.9-15.9); WHITE BLOOD COUNT 23.4 K/mm3 (4.0-10.0)
[2016-08-21 07:57] LABS: CALCIUM 8.8 mg/dL (8.5-10.1); COCKROFT - GAULT 71.62; CREATININE 1.1 mg/dL (0.7-1.3); MAGNESIUM 2.1 mg/dL (1.8-2.4); PHOSPHOROUS 4.3 mg/dL (2.5-4.9)
[2016-08-21] MEDS: ALPRAZolam 0.25 MG TABLET PO PRN (09:06)
[2016-08-21] MEDS: BUDESONIDE/FORMETEROL FUMARATE 160/4.5 mcg INHALER IH SCH ×2 (09:06→21:21)
[2016-08-21] MEDS: METOPROLOL SUCCINATE 25 MG TAB.SR.24H (FP) PO SCH (09:06)
[2016-08-21] MEDS: CHOLECALCIFEROL (VITAMIN D3) 1,000 UNIT TABLET (FP) PO SCH (09:06)
[2016-08-21] MEDS: LOSARTAN POTASSIUM 50 MG TABLET (FP) PO SCH (09:06)
[2016-08-21] MEDS: predniSONE 20 MG TABLET (UD) PO SCH ×2 (09:06→21:14)
[2016-08-21] MEDS: CLOPIDOGREL BISULFATE 75 MG TABLET (FP) PO SCH (09:06)
[2016-08-21] MEDS: ENOXAPARIN NA (PORCINE) 40 MG/0.4 ML DISP.SYRIN SQ SCH (09:12)
--- NOTE | 2016-08-21 10:26 | PN ---
Progress Note (short form) - Note Progress Note: Chief Complaint: sob/cp, edema History of Present Illness: no cp palps dizzy; sob improved Current Medications Generic Name Dose Route Start Last Admin Trade Name Freq PRN Reason Stop Dose Admin Acetaminophen 650 mg 08/12/16 16:30 Tylenol - PO Q4H PRN FEVER OR PAIN Albuterol Sulfate 1 amp 08/12/16 16:07 08/20/16 21:21 Ventolin 0.083% Nebulizer Soln - NEB 1 amp Q4H PRN Administration SHORT OF BREATH/WHEEZING Albuterol/Ipratropium 1 amp 08/12/16 18:00 08/21/16 06:34 Duoneb - NEB 1 amp QIDR [facility] Administration Alprazolam 0.25 mg 08/15/16 14:00 08/21/16 09:06 Xanax - PO 0.25 mg BID PRN Administration Atorvastatin Calcium 20 mg 08/12/16 22:00 08/20/16 21:18 Lipitor - PO 20 mg HS [facility] Administration Budesonide/Formoterol Fumarate 2 puff 08/12/16 22:00 08/21/16 09:06 Symbicort 160/4.5mcg - IH 2 puff BID [facility] Administration Cholecalciferol 1,000 unit 08/13/16 10:00 08/21/16 09:06 Vitamin D3 - PO 1,000 unit DAILY [facility] Administration Clopidogrel Bisulfate 75 mg 08/13/16 10:00 08/21/16 09:06 Plavix - PO 75 mg DAILY [facility] Administration Enoxaparin Sodium 40 mg 08/13/16 10:00 08/21/16 09:12 Lovenox - SQ 40 mg DAILY [facility] Administration Piperacillin Sod/Tazobactam Sod 50 mls @ 100 mls/hr 08/19/16 19:15 08/21/16 09: 06 Zosyn 3.375gm Ivpb (Pre-Docked) IVPB 100 mls/hr Q8H-IV [facility] Administration Protocol Insulin Aspart 0 vial 08/12/16 16:30 08/21/16 06:20 Novolog Vial Sliding Scale - SQ 3 units ACHS [facility] Administration Protocol Losartan Potassium 50 mg 08/17/16 10:00 08/21/16 09:06 Cozaar - PO 50 mg DAILY [facility] Administration Metformin HCl 1,000 mg 08/12/16 16:30 08/21/16 06:19 Glucophage - PO 1,000 mg BIDAC [facility] Administration Metoprolol Succinate 25 mg 08/17/16 12:45 08/21/16 09:06 Toprol Xl - PO 25 mg DAILY [facility] Administration Nystatin 500,000 units 08/17/16 18:00 08/21/16 06:19 Nystatin Oral Suspension - PO 500,000 units Q6HPO [facility] Administration Potassium Phos/Sodium Phos 1 packet 08/19/16 14:00 08/21/16 06:18 Phos-Nak Packet - PO 1 packet TID [facility] Administration Prednisone 20 mg 08/19/16 08:00 08/21/16 09:06 Deltasone - PO 20 mg BID [facility] Administration Vital Signs Period Temp Pulse Resp BP Sys/Lopez Pulse Ox Last 24 Hr 97.5 F-98.2 F 68-108 18-20 105-143/59-87 93-96 Constitutional: Yes: Well Nourished, Calm Cardiovascular: Yes: Regular Rate and Rhythm (soft sounds), S1, S2. No: Gallop , Murmur Respiratory: Yes: scattered rhonchi, nl eff. No: Accessory Muscle Use, Rales, Wheezes Extremities: No: Cold Edema: trace le edema bl Neurological: Yes: Alert, Oriented Psychiatric: No: Agitated no jaundice diaphoresis Labs: CBC, BMP 08/21/16 06:00 08/21/16 06:00 ecg 08/12/16: sr, old rbbb cta chest: no pe, no chf, +left infiltrates echo 04/2014: nl lv, rv tds, mod brian, mod mr, mod tr, rvsp 40-50, mild-mod , mod ar, ao root mild dilatation echo report reviewed: 08/13/16: mod-sev dec LV fn. apical inferior wall AK, mod global HK. NL rv. mod -sev ar. MIld-mod MR, mod TR. RVSP 50-60. bline ao dilation. a/p: 76 m hx htn, copd on home 02, hld, dm, cad s/p remote mi/pci, remote aortic graft endo repair, atrophic left kidney here with sob. 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 Unclear if this is new. - Appears euvolemic. CT without pulmonary edema. 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 - con't valsartan. have stopped norvasc and replaced with low dose beta ger. Per records, previously had been on metoprolol 100 mg bid so should not significantly worsen pulmonary status. htn: -controlled on current meds hld: -cont home statin atypical chest pain, cad s/p remote mi/pci: -no signs acs, ce's neg x2. cp on initial eval seemed related to msk/pna, not suggestive of cardiac etiology -cont home statin, arb, plavix. adding back bb - Systolic dysfunction. Will need f/u with dr kerr (cardio) for further outpatient work up if this is a new finding. mr, tr, ar, as: -moderate on prior echo, no signs of chf - stable on repeat echo h/o AAA endovasc repair: -outpt monitoring/followup (cirilo). 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
--- NOTE | 2016-08-21 11:50 | PN ---
Progress Note (short form) - Note Progress Note: PULMONARY Feels better today. Slept through night. +cough with yellow sputum. No fevers or chills. Last Vital Signs Temp Pulse Resp BP Pulse Ox 98.2 F 102 H 20 120/82 96 08/21/16 06:00 08/21/16 06:00 08/21/16 06:00 08/21/16 06:00 08/20/16 21:00 Gen: mildly tachypneic with speaking Heart: RRR Lung: scattered rhonchi Abd: soft, nontender Ext: + edema CBC, BMP 08/21/16 06:00 08/21/16 06:00 Active Medications Acetaminophen (Tylenol -) 650 mg PO Q4H PRN PRN Reason: FEVER OR PAIN Albuterol Sulfate (Ventolin 0.083% Nebulizer Soln -) 1 amp NEB Q4H PRN PRN Reason: SHORT OF BREATH/WHEEZING Last Admin: 08/20/16 21:21 Dose: 1 amp Albuterol/Ipratropium (Duoneb -) 1 amp NEB QIDR [facility] Last Admin: 08/21/16 06:34 Dose: 1 amp Alprazolam (Xanax -) 0.25 mg PO BID PRN Last Admin: 08/21/16 09:06 Dose: 0.25 mg Atorvastatin Calcium (Lipitor -) 20 mg PO HS [facility] Last Admin: 08/20/16 21:18 Dose: 20 mg Budesonide/Formoterol Fumarate (Symbicort 160/4.5mcg -) 2 puff IH BID [facility] Last Admin: 08/21/16 09:06 Dose: 2 puff Cholecalciferol (Vitamin D3 -) 1,000 unit PO DAILY [facility] Last Admin: 08/21/16 09:06 Dose: 1,000 unit Clopidogrel Bisulfate (Plavix -) 75 mg PO DAILY [facility] Last Admin: 08/21/16 09:06 Dose: 75 mg Enoxaparin Sodium (Lovenox -) 40 mg SQ DAILY [facility] Last Admin: 08/21/16 09:12 Dose: 40 mg Piperacillin Sod/Tazobactam Sod (Zosyn 3.375gm Ivpb (Pre-Docked)) 50 mls @ 100 mls/hr IVPB Q8H-IV [facility] PRN Reason: Protocol Last Admin: 08/21/16 09:06 Dose: 100 mls/hr Insulin Aspart (Novolog Vial Sliding Scale -) 0 vial SQ ACHS [facility] PRN Reason: Protocol Last Admin: 08/21/16 06:20 Dose: 3 units Losartan Potassium (Cozaar -) 50 mg PO DAILY [facility] Last Admin: 08/21/16 09:06 Dose: 50 mg Metformin HCl (Glucophage -) 1,000 mg PO BIDAC [facility] Last Admin: 08/21/16 06:19 Dose: 1,000 mg Metoprolol Succinate (Toprol Xl -) 25 mg PO DAILY [facility] Last Admin: 08/21/16 09:06 Dose: 25 mg Nystatin (Nystatin Oral Suspension -) 500,000 units PO Q6HPO [facility] Last Admin: 08/21/16 06:19 Dose: 500,000 units Potassium Phos/Sodium Phos (Phos-Nak Packet -) 1 packet PO TID [facility] Last Admin: 08/21/16 06:18 Dose: 1 packet Prednisone (Deltasone -) 20 mg PO BID [facility] Last Admin: 08/21/16 09:06 Dose: 20 mg A/P Pneumonia Severe COPD Emphysema LV Systolic/Diastolic Dysfunction Pulmonary HTN Elevated LFTs - antibiotics per ID - inhaled bronchodilators - prednisone taper - lasix as needed - O2 to keep SPo2 >90% - DVT prophylaxis - will need outpt f/u of chest imaging Problem List - Problems (1) Chest pain Code(s): R07.9 - CHEST PAIN, UNSPECIFIED (2) COPD (chronic obstructive pulmonary disease) Code(s): J44.9 - CHRONIC OBSTRUCTIVE PULMONARY DISEASE, UNSPECIFIED Qualifiers : COPD type: COPD with acute exacerbation Qualified Code(s): J44.1 - Chronic obstructive pulmonary disease with (acute) exacerbation (3) Chronic respiratory failure with hypoxia Code(s): J96.11 - CHRONIC RESPIRATORY FAILURE WITH HYPOXIA (4) Elevated liver enzymes Code(s): R74.8 - ABNORMAL LEVELS OF OTHER SERUM ENZYMES (5) Chronic diastolic (congestive) heart failure Code(s): I50.32 - CHRONIC DIASTOLIC (CONGESTIVE) HEART FAILURE (6) Pulmonary hypertension Code(s): I27.2 - OTHER SECONDARY PULMONARY HYPERTENSION
[2016-08-21] MEDS ORDERED: INSULIN (NOVOLOG) ASPART 100 UNITS/ML 10ML VIAL ONE ×3 (12:09→21:13)
--- NOTE | 2016-08-21 15:20 | PN ---
Progress Note (short form) - Note Progress Note: Patient seen and examined. Feeling better. Denies chest pain, shortness of breath of breath, palpitation or dizziness. Afebrile. Medication List Current Medications: Active Medications Acetaminophen (Tylenol -) 650 mg PO Q4H PRN PRN Reason: FEVER OR PAIN Albuterol Sulfate (Ventolin 0.083% Nebulizer Soln -) 1 amp NEB Q4H PRN PRN Reason: SHORT OF BREATH/WHEEZING Last Admin: 08/19/16 09:15 Dose: 1 amp Albuterol/Ipratropium (Duoneb -) 1 amp NEB QIDR [facility] Last Admin: 08/20/16 11:13 Dose: 1 amp Alprazolam (Xanax -) 0.25 mg PO BID PRN Last Admin: 08/19/16 10:35 Dose: 0.25 mg Atorvastatin Calcium (Lipitor -) 20 mg PO HS [facility] Last Admin: 08/19/16 22:24 Dose: 20 mg Budesonide/Formoterol Fumarate (Symbicort 160/4.5mcg -) 2 puff IH BID [facility] Last Admin: 08/20/16 09:26 Dose: 2 puff Cholecalciferol (Vitamin D3 -) 1,000 unit PO DAILY [facility] Last Admin: 08/20/16 09:26 Dose: 1,000 unit Clopidogrel Bisulfate (Plavix -) 75 mg PO DAILY [facility] Last Admin: 08/20/16 09:26 Dose: 75 mg Enoxaparin Sodium (Lovenox -) 40 mg SQ DAILY [facility] Last Admin: 08/20/16 09:26 Dose: 40 mg Piperacillin Sod/Tazobactam Sod (Zosyn 3.375gm Ivpb (Pre-Docked)) 50 mls @ 100 mls/hr IVPB Q8H-IV [facility] PRN Reason: Protocol Last Admin: 08/20/16 09:27 Dose: 100 mls/hr Insulin Aspart (Novolog Vial Sliding Scale -) 0 vial SQ ACHS [facility] PRN Reason: Protocol Last Admin: 08/20/16 12:25 Dose: 3 units Losartan Potassium (Cozaar -) 50 mg PO DAILY [facility] Last Admin: 08/20/16 09:26 Dose: 50 mg Metformin HCl (Glucophage -) 1,000 mg PO BIDAC [facility] Last Admin: 08/20/16 06:20 Dose: 1,000 mg Metoprolol Succinate (Toprol Xl -) 25 mg PO DAILY [facility] Last Admin: 08/20/16 09:26 Dose: 25 mg Nystatin (Nystatin Oral Suspension -) 500,000 units PO Q6HPO [facility] Last Admin: 08/20/16 12:26 Dose: 500,000 units Potassium Phos/Sodium Phos (Phos-Nak Packet -) 1 packet PO TID [facility] Last Admin: 08/20/16 06:20 Dose: 1 packet Prednisone (Deltasone -) 20 mg PO BID [facility] Last Admin: 08/20/16 09:26 Dose: 20 mg Vital Signs Temperature 98.4 F 08/21/16 14:00 Pulse Rate 82 08/21/16 14:00 Respiratory Rate 20 08/21/16 14:00 Blood Pressure 114/72 08/21/16 14:00 O2 Sat by Pulse Oximetry (%) 96 08/21/16 12:01 Constitutional: Yes: Well Nourished, No Distress, Calm Cardiovascular: Yes: Regular Rate and Rhythm. No: Gallop, Murmur, Rub Respiratory: Yes: Regular, On Nasal O2, Rhonchi (slight). No: Rales, Wheezes Gastrointestinal: Yes: Normal Bowel Sounds, Soft. No: Distention, Tenderness Extremities: Yes: WNL Edema: Yes Edema: LLE: 1+, RLE: 1+ CBC, BMP 08/21/16 06:00 08/21/16 06:00 Problem List - Problems (1) Acute and chronic respiratory failure Code(s): J96.20 - ACUTE AND CHR RESP FAILURE, UNSP W HYPOXIA OR HYPERCAPNIA Qualifiers: Respiratory failure complication: hypoxia Qualified Code(s): J96.21 - Acute and chronic respiratory failure with hypoxia (2) Pneumonia Code(s): J18.9 - PNEUMONIA, UNSPECIFIED ORGANISM (3) Chest pain Code(s): R07.9 - CHEST PAIN, UNSPECIFIED (4) Chronic diastolic (congestive) heart failure Code(s): I50.32 - CHRONIC DIASTOLIC (CONGESTIVE) HEART FAILURE (5) COPD (chronic obstructive pulmonary disease) Code(s): J44.9 - CHRONIC OBSTRUCTIVE PULMONARY DISEASE, UNSPECIFIED Qualifiers : COPD type: COPD with acute exacerbation Qualified Code(s): J44.1 - Chronic obstructive pulmonary disease with (acute) exacerbation (6) HTN (hypertension) Code(s): I10 - ESSENTIAL (PRIMARY) HYPERTENSION (7) HLD (hyperlipidemia) Code(s): E78.5 - HYPERLIPIDEMIA, UNSPECIFIED (8) Diabetes Code(s): E11.9 - TYPE 2 DIABETES MELLITUS WITHOUT COMPLICATIONS Qualifiers: Diabetes mellitus type: type 2 Assessment/Plan (1) Acute on chronic respiratory failure -currently much improved -continue oxygen support -wean prednisone -appreciate pulmonary assistance, note reviewed (2) Pneumonia Assessment/Plan: -patient finished course of rocephin -WBC improving. - Continue abx per ID Code(s): J18.9 - PNEUMONIA, UNSPECIFIED ORGANISM (3) Chest pain Assessment/Plan: -resolved -pleurisy secondary to pneumonia Code(s): R07.9 - CHEST PAIN, UNSPECIFIED (4) Chronic diastolic (congestive) heart failure Assessment/Plan: -cardiology following -no need for lasix Code(s): I50.32 - CHRONIC DIASTOLIC (CONGESTIVE) HEART FAILURE (5) COPD (chronic obstructive pulmonary disease) Assessment/Plan: -much improved today -pulmonary following Code(s): J44.9 - CHRONIC OBSTRUCTIVE PULMONARY DISEASE, UNSPECIFIED Qualifiers : COPD type: COPD with acute exacerbation Qualified Code(s): J44.1 - Chronic obstructive pulmonary disease with (acute) exacerbation (6) HTN (hypertension) Assessment/Plan: -continue cozaar and toprol xl Code(s): I10 - ESSENTIAL (PRIMARY) HYPERTENSION (7) HLD (hyperlipidemia) Assessment/Plan: -continue lipitor Code(s): E78.5 - HYPERLIPIDEMIA, UNSPECIFIED (8) Diabetes -continue diabetic diet -continue metformin and SSI -hyperglycemia secondary to steroids
[2016-08-21 17:18] LABS: ALBUMIN 2.3 g/dl (3.4-5.0); ALK PHOS 104 U/L (45-117); ANION GAP 6 (8-16); BILIRUBIN,TOTAL 0.4 mg/dL (0.2-1.0); CALCIUM 8.7 mg/dL (8.5-10.1); CO2 33 mmol/L (21-32); COCKROFT - GAULT 71.5; CREATININE 1.1 mg/dL (0.7-1.3); GLUCOSE,RANDOM 240 mg/dL (74-106); SGOT/AST 36 U/L (15-37); SGPT/ALT 40 U/L (12-78); TOT PROT 5.5 g/dl (6.4-8.2)
--- NOTE | 2016-08-21 19:07 | PN ---
Progress Note, Physician History of Present Illness: continues to do well no complaints says he is breathing better - Current Medication List Current Medications: Active Medications Acetaminophen (Tylenol -) 650 mg PO Q4H PRN PRN Reason: FEVER OR PAIN Alprazolam (Xanax -) 0.25 mg PO BID PRN Last Admin: 08/21/16 09:06 Dose: 0.25 mg Atorvastatin Calcium (Lipitor -) 20 mg PO HS [facility] [place] Last Admin: 08/20/16 21:18 Dose: 20 mg Budesonide/Formoterol Fumarate (Symbicort 160/4.5mcg -) 2 puff IH BID [facility] Last Admin: 08/21/16 09:06 Dose: 2 puff Cholecalciferol (Vitamin D3 -) 1,000 unit PO DAILY [facility] Last Admin: 08/21/16 09:06 Dose: 1,000 unit Clopidogrel Bisulfate (Plavix -) 75 mg PO DAILY [facility] Last Admin: 08/21/16 09:06 Dose: 75 mg Enoxaparin Sodium (Lovenox -) 40 mg SQ DAILY [facility] [place] Last Admin: 08/21/16 09:12 Dose: 40 mg Piperacillin Sod/Tazobactam Sod (Zosyn 3.375gm Ivpb (Pre-Docked)) 50 mls @ 100 mls/hr IVPB Q8H-IV [facility] PRN Reason: Protocol Last Admin: 08/21/16 17:01 Dose: 100 mls/hr Insulin Aspart (Novolog Vial Sliding Scale -) 0 vial SQ ACHS [facility] PRN Reason: Protocol Last Admin: 08/21/16 17:00 Dose: 3 units Losartan Potassium (Cozaar -) 50 mg PO DAILY [facility] [place] Last Admin: 08/21/16 09:06 Dose: 50 mg Metformin HCl (Glucophage -) 1,000 mg PO BIDAC [facility] [place] Last Admin: 08/21/16 17:00 Dose: 1,000 mg Metoprolol Succinate (Toprol Xl -) 25 mg PO DAILY [facility] [place] Last Admin: 08/21/16 09:06 Dose: 25 mg Nystatin (Nystatin Oral Suspension -) 500,000 units PO Q6HPO [facility] [place] Last Admin: 08/21/16 17:01 Dose: 500,000 units Potassium Phos/Sodium Phos (Phos-Nak Packet -) 1 packet PO TID [facility] [place] Last Admin: 08/21/16 14:48 Dose: 1 packet Prednisone (Deltasone -) 20 mg PO BID [facility] Last Admin: 08/21/16 09:06 Dose: 20 mg - Objective Vital Signs: Vital Signs Temperature 98.2 F 08/21/16 18:00 Pulse Rate 94 H 08/21/16 18:00 Respiratory Rate 20 08/21/16 18:00 Blood Pressure 116/58 08/21/16 18:00 O2 Sat by Pulse Oximetry (%) 96 08/21/16 12:01 Constitutional: Yes: No Distress, Calm Cardiovascular: Yes: S1, S2 Respiratory: Yes: Regular, Poor Air Entry, Other Gastrointestinal: Yes: Normal Bowel Sounds, Soft Musculoskeletal: Yes: WNL Extremities: Yes: WNL Neurological: Yes: Alert, Oriented Psychiatric: Yes: Alert, Oriented Labs: CBC, BMP 08/21/16 06:00 08/21/16 16:10 INR, PTT INR 1.19 (0.82-1.09) H 08/12/16 14:11 Assessment/Plan Problem List - Problems (1) Acute and chronic respiratory failure Code(s): J96.20 - ACUTE AND CHR RESP FAILURE, UNSP W HYPOXIA OR HYPERCAPNIA Qualifiers: Respiratory failure complication: hypoxia Qualified Code(s): J96.21 - Acute and chronic respiratory failure with hypoxia (2) Pneumonia Code(s): J18.9 - PNEUMONIA, UNSPECIFIED ORGANISM (3) Chest pain Code(s): R07.9 - CHEST PAIN, UNSPECIFIED (4) Chronic diastolic (congestive) heart failure Code(s): I50.32 - CHRONIC DIASTOLIC (CONGESTIVE) HEART FAILURE (5) COPD (chronic obstructive pulmonary disease) Code(s): J44.9 - CHRONIC OBSTRUCTIVE PULMONARY DISEASE, UNSPECIFIED Qualifiers : COPD type: COPD with acute exacerbation Qualified Code(s): J44.1 - Chronic obstructive pulmonary disease with (acute) exacerbation (6) HTN (hypertension) Code(s): I10 - ESSENTIAL (PRIMARY) HYPERTENSION (7) HLD (hyperlipidemia) Code(s): E78.5 - HYPERLIPIDEMIA, UNSPECIFIED (8) Diabetes Code(s): E11.9 - TYPE 2 DIABETES MELLITUS WITHOUT COMPLICATIONS Qualifiers: Diabetes mellitus type: type 2 after looking at the patient and xray will start patient on treatment plan continue abx will complete the course incentive eddie rest as per pul/primary care
[2016-08-21] MEDS: ATORVASTATIN CA 20 MG TABLET (FP) PO SCH (21:14)
[2016-08-22] MEDS: PIPERACILLIN/TAZOB 3.375 GM 50 ML IVPB SCH ×3 (01:21→17:15)
[2016-08-22] MEDS: NYSTATIN 500,000 UNITS/5 ML SUSPENSION PO SCH ×4 (01:21→17:15)
[2016-08-22] MEDS ORDERED: ALBUTEROL SO4 0.083% IH SOL 2.5 MG/3 ML VIAL.NEB. NEB ONE (06:10)
[2016-08-22] MEDS: NAPH,MB-DB/K PH,MBDB POWDER PACKET PO SCH ×2 (06:34→13:13)
[2016-08-22] MEDS: metFORMIN HCL 500 MG TABLET (FP) PO SCH ×2 (06:37→17:17)
[2016-08-22] MEDS: INSULIN SLIDING SCALE (NOVOLOG) 1 VIAL SQ SCH ×4 (06:37→21:46)
[2016-08-22 07:21] LABS: BASOPHIL 0.1 % (0-2.0); MCH 28.9 pg (25.7-33.7); MCHC 32.3 g/dl (32.0-35.9); MEAN CELL VOLUME 89.4 fl (80-96); MEAN PLT VOLUME 8.2 fl (7.5-11.1); NEUTROPHILS 92.7 % (42.8-82.8); PLATELET COUNT 340 K/MM3 (134-434); WHITE BLOOD COUNT 17.7 K/mm3 (4.0-10.0)
[2016-08-22] MEDS ORDERED: PT OWN MED DRAWER 7, Y5N ONE ×2 (08:32→18:15)
[2016-08-22] MEDS: ENOXAPARIN NA (PORCINE) 40 MG/0.4 ML DISP.SYRIN SQ SCH (09:20)
[2016-08-22] MEDS: CHOLECALCIFEROL (VITAMIN D3) 1,000 UNIT TABLET (FP) PO SCH (09:20)
[2016-08-22] MEDS: predniSONE 20 MG TABLET (UD) PO SCH ×2 (09:20→21:41)
[2016-08-22] MEDS: CLOPIDOGREL BISULFATE 75 MG TABLET (FP) PO SCH (09:20)
[2016-08-22] MEDS: METOPROLOL SUCCINATE 25 MG TAB.SR.24H (FP) PO SCH (09:21)
[2016-08-22] MEDS: LOSARTAN POTASSIUM 50 MG TABLET (FP) PO SCH (09:21)
[2016-08-22] MEDS: BUDESONIDE/FORMETEROL FUMARATE 160/4.5 mcg INHALER IH SCH (09:21)
--- NOTE | 2016-08-22 11:08 | PN ---
Progress Note (short form) - Note Progress Note: Chief Complaint: sob/cp, edema History of Present Illness: no cp palps dizzy; sob improved Current Medications Generic Name Dose Route Start Last Admin Trade Name Freq PRN Reason Stop Dose Admin Acetaminophen 650 mg 08/12/16 16:30 Tylenol - PO Q4H PRN FEVER OR PAIN Albuterol Sulfate 1 amp 08/22/16 07:01 Ventolin 0.083% Nebulizer Soln - NEB Q4H PRN SHORT OF BREATH/WHEEZING Atorvastatin Calcium 20 mg 08/12/16 22:00 08/21/16 21:14 Lipitor - PO 20 mg HS [facility] Administration Budesonide/Formoterol Fumarate 2 puff 08/12/16 22:00 08/22/16 09:21 Symbicort 160/4.5mcg - IH 2 puff BID [facility] Administration Cholecalciferol 1,000 unit 08/13/16 10:00 08/22/16 09:20 Vitamin D3 - PO 1,000 unit DAILY [facility] Administration Clopidogrel Bisulfate 75 mg 08/13/16 10:00 08/22/16 09:20 Plavix - PO 75 mg DAILY [facility] Administration Enoxaparin Sodium 40 mg 08/13/16 10:00 08/22/16 09:20 Lovenox - SQ 40 mg DAILY [facility] Administration Piperacillin Sod/Tazobactam Sod 50 mls @ 100 mls/hr 08/19/16 19:15 08/22/16 09: 24 Zosyn 3.375gm Ivpb (Pre-Docked) IVPB 100 mls/hr Q8H-IV [facility] Administration Protocol Insulin Aspart 0 vial 08/12/16 16:30 08/22/16 06:37 Novolog Vial Sliding Scale - SQ 1 units ACHS [facility] Administration Protocol Losartan Potassium 50 mg 08/17/16 10:00 08/22/16 09:21 Cozaar - PO 50 mg DAILY [facility] Administration Metformin HCl 1,000 mg 08/12/16 16:30 08/22/16 06:37 Glucophage - PO 1,000 mg BIDAC [facility] Administration Metoprolol Succinate 25 mg 08/17/16 12:45 08/22/16 09:21 Toprol Xl - PO 25 mg DAILY [facility] Administration Nystatin 500,000 units 08/17/16 18:00 08/22/16 06:35 Nystatin Oral Suspension - PO 500,000 units Q6HPO [facility] Administration Potassium Phos/Sodium Phos 1 packet 08/19/16 14:00 08/22/16 06:34 Phos-Nak Packet - PO Not Given TID [facility] Prednisone 20 mg 08/19/16 08:00 08/22/16 09:20 Deltasone - PO 20 mg BID [facility] Administration Vital Signs Period Temp Pulse Resp BP Sys/Lopez Pulse Ox Last 24 Hr 98.2 F-98.8 F 77-105 20-20 114-150/58-83 93-96 Constitutional: Yes: Well Nourished, Calm Cardiovascular: Yes: Regular Rate and Rhythm (soft sounds), S1, S2. No: Gallop , Murmur Respiratory: Yes: scattered rhonchi, nl eff. No: Accessory Muscle Use, Rales, Wheezes Extremities: No: Cold Edema: trace le edema bl Neurological: Yes: Alert, Oriented Psychiatric: No: Agitated no jaundice diaphoresis Labs: CBC, BMP 08/22/16 06:15 08/21/16 16:10 ecg 08/12/16: sr, old rbbb cta chest: no pe, no chf, +left infiltrates echo 04/2014: nl lv, rv tds, mod brian, mod mr, mod tr, rvsp 40-50, mild-mod , mod ar, ao root mild dilatation echo report reviewed: 08/13/16: mod-sev dec LV fn. apical inferior wall AK, mod global HK. NL rv. mod -sev ar. MIld-mod MR, mod TR. RVSP 50-60. bline ao dilation. a/p: 76 m hx htn, copd on home 02, hld, dm, cad s/p remote mi/pci, remote aortic graft endo repair, atrophic left kidney here with sob. 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 Unclear if this is new. - Appears euvolemic. CT without pulmonary edema. - Recommend follow up with outpatient manager cath lab who has access to more recent records. - con't valsartan. have stopped norvasc and replaced with low dose beta ger. Per records, previously had been on metoprolol 100 mg bid so should not significantly worsen pulmonary status. htn: -controlled on current meds hld: -cont home statin atypical chest pain, cad s/p remote mi/pci: -no signs acs, ce's neg x2. cp on initial eval seemed related to msk/pna, not suggestive of cardiac etiology -cont home statin, arb, plavix. adding back bb - Systolic dysfunction. Will need f/u with dr kerr (cardio) for further outpatient work up if this is a new finding. mr, tr, ar, as: -moderate on prior echo, no signs of chf - stable on repeat echo h/o AAA endovasc repair: -outpt monitoring/followup (cirilo). 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
--- NOTE | 2016-08-22 12:30 | PN ---
Progress Note, Physician History of Present Illness: looks much better looks like he is back at [place] breathing very well had a long discussion with the daughter - Current Medication List Current Medications: Active Medications Acetaminophen (Tylenol -) 650 mg PO Q4H PRN PRN Reason: FEVER OR PAIN Albuterol Sulfate (Ventolin 0.083% Nebulizer Soln -) 1 amp NEB Q4H PRN PRN Reason: SHORT OF BREATH/WHEEZING Atorvastatin Calcium (Lipitor -) 20 mg PO HS [facility] Last Admin: 08/21/16 21:14 Dose: 20 mg Budesonide/Formoterol Fumarate (Symbicort 160/4.5mcg -) 2 puff IH BID [facility] Last Admin: 08/22/16 09:21 Dose: 2 puff Cholecalciferol (Vitamin D3 -) 1,000 unit PO DAILY [facility] Last Admin: 08/22/16 09:20 Dose: 1,000 unit Clopidogrel Bisulfate (Plavix -) 75 mg PO DAILY [facility] Last Admin: 08/22/16 09:20 Dose: 75 mg Enoxaparin Sodium (Lovenox -) 40 mg SQ DAILY [facility] Last Admin: 08/22/16 09:20 Dose: 40 mg Piperacillin Sod/Tazobactam Sod (Zosyn 3.375gm Ivpb (Pre-Docked)) 50 mls @ 100 mls/hr IVPB Q8H-IV [facility] PRN Reason: Protocol Last Admin: 08/22/16 09:24 Dose: 100 mls/hr Insulin Aspart (Novolog Vial Sliding Scale -) 0 vial SQ ACHS [facility] PRN Reason: Protocol Last Admin: 08/22/16 11:30 Dose: 1 units Losartan Potassium (Cozaar -) 50 mg PO DAILY [facility] Last Admin: 08/22/16 09:21 Dose: 50 mg Metformin HCl (Glucophage -) 1,000 mg PO BIDAC [facility] Last Admin: 08/22/16 06:37 Dose: 1,000 mg Metoprolol Succinate (Toprol Xl -) 25 mg PO DAILY [facility] Last Admin: 08/22/16 09:21 Dose: 25 mg Nystatin (Nystatin Oral Suspension -) 500,000 units PO Q6HPO [facility] Last Admin: 08/22/16 06:35 Dose: 500,000 units Potassium Phos/Sodium Phos (Phos-Nak Packet -) 1 packet PO TID [facility] Last Admin: 08/22/16 06:34 Dose: Not Given Prednisone (Deltasone -) 20 mg PO BID [facility] Last Admin: 08/22/16 09:20 Dose: 20 mg - Objective Vital Signs: Vital Signs Temperature 98.7 F 08/22/16 10:00 Pulse Rate 105 H 08/22/16 10:15 Respiratory Rate 20 08/22/16 10:00 Blood Pressure 157/113 08/22/16 10:00 O2 Sat by Pulse Oximetry (%) 96 08/22/16 10:15 Constitutional: Yes: No Distress, Calm Cardiovascular: Yes: S1, S2 Respiratory: Yes: Regular, On Nasal O2, Poor Air Entry Gastrointestinal: Yes: Normal Bowel Sounds, Soft Musculoskeletal: Yes: WNL Extremities: Yes: WNL Neurological: Yes: Alert, Oriented Psychiatric: Yes: Alert, Oriented Labs: CBC, BMP 08/22/16 06:15 08/21/16 16:10 INR, PTT INR 1.19 (0.82-1.09) H 08/12/16 14:11 Assessment/Plan Problem List - Problems (1) Acute and chronic respiratory failure Code(s): J96.20 - ACUTE AND CHR RESP FAILURE, UNSP W HYPOXIA OR HYPERCAPNIA Qualifiers: Respiratory failure complication: hypoxia Qualified Code(s): J96.21 - Acute and chronic respiratory failure with hypoxia (2) Pneumonia Code(s): J18.9 - PNEUMONIA, UNSPECIFIED ORGANISM (3) Chest pain Code(s): R07.9 - CHEST PAIN, UNSPECIFIED (4) Chronic diastolic (congestive) heart failure Code(s): I50.32 - CHRONIC DIASTOLIC (CONGESTIVE) HEART FAILURE (5) COPD (chronic obstructive pulmonary disease) Code(s): J44.9 - CHRONIC OBSTRUCTIVE PULMONARY DISEASE, UNSPECIFIED Qualifiers : COPD type: COPD with acute exacerbation Qualified Code(s): J44.1 - Chronic obstructive pulmonary disease with (acute) exacerbation (6) HTN (hypertension) Code(s): I10 - ESSENTIAL (PRIMARY) HYPERTENSION (7) HLD (hyperlipidemia) Code(s): E78.5 - HYPERLIPIDEMIA, UNSPECIFIED (8) Diabetes Code(s): E11.9 - TYPE 2 DIABETES MELLITUS WITHOUT COMPLICATIONS Qualifiers: Diabetes mellitus type: type 2 after looking at the patient and xray will start patient on treatment plan continue abx will complete the course incentive eddie rest as per pul/primary care patient doing well
--- NOTE | 2016-08-22 12:49 | PN ---
Progress Note (short form) - Note Progress Note: PULMONARY Breathing continues to improve. No fevers or chills. Does not like the symbicort. Last Vital Signs Temp Pulse Resp BP Pulse Ox 98.7 F 105 H 20 157/113 96 08/22/16 10:00 08/22/16 10:15 08/22/16 10:00 08/22/16 10:00 08/22/16 10:15 Gen: mildly tachypneic with speaking Heart: RRR Lung: scattered rhonchi Abd: soft, nontender Ext: + edema CBC, BMP 08/22/16 06:15 08/21/16 16:10 Active Medications Acetaminophen (Tylenol -) 650 mg PO Q4H PRN PRN Reason: FEVER OR PAIN Albuterol Sulfate (Ventolin 0.083% Nebulizer Soln -) 1 amp NEB Q4H PRN PRN Reason: SHORT OF BREATH/WHEEZING Atorvastatin Calcium (Lipitor -) 20 mg PO HS [facility] Last Admin: 08/21/16 21:14 Dose: 20 mg Budesonide/Formoterol Fumarate (Symbicort 160/4.5mcg -) 2 puff IH BID [facility] Last Admin: 08/22/16 09:21 Dose: 2 puff Cholecalciferol (Vitamin D3 -) 1,000 unit PO DAILY [facility] Last Admin: 08/22/16 09:20 Dose: 1,000 unit Clopidogrel Bisulfate (Plavix -) 75 mg PO DAILY [facility] Last Admin: 08/22/16 09:20 Dose: 75 mg Enoxaparin Sodium (Lovenox -) 40 mg SQ DAILY [facility] Last Admin: 08/22/16 09:20 Dose: 40 mg Piperacillin Sod/Tazobactam Sod (Zosyn 3.375gm Ivpb (Pre-Docked)) 50 mls @ 100 mls/hr IVPB Q8H-IV [facility] PRN Reason: Protocol Last Admin: 08/22/16 09:24 Dose: 100 mls/hr Insulin Aspart (Novolog Vial Sliding Scale -) 0 vial SQ ACHS [facility] PRN Reason: Protocol Last Admin: 08/22/16 11:30 Dose: 1 units Losartan Potassium (Cozaar -) 50 mg PO DAILY [facility] Last Admin: 08/22/16 09:21 Dose: 50 mg Metformin HCl (Glucophage -) 1,000 mg PO BIDAC [facility] Last Admin: 08/22/16 06:37 Dose: 1,000 mg Metoprolol Succinate (Toprol Xl -) 25 mg PO DAILY [facility] Last Admin: 08/22/16 09:21 Dose: 25 mg Nystatin (Nystatin Oral Suspension -) 500,000 units PO Q6HPO [facility] Last Admin: 08/22/16 06:35 Dose: 500,000 units Potassium Phos/Sodium Phos (Phos-Nak Packet -) 1 packet PO TID [facility] Last Admin: 08/22/16 06:34 Dose: Not Given Prednisone (Deltasone -) 20 mg PO BID [facility] Last Admin: 08/22/16 09:20 Dose: 20 mg A/P Pneumonia Severe COPD Emphysema LV Systolic/Diastolic Dysfunction Pulmonary HTN Elevated LFTs - will d/c symbicort - antibiotics per ID - inhaled bronchodilators - prednisone taper - lasix as needed - O2 to keep SPo2 >90% - DVT prophylaxis - will need outpt f/u of chest imaging Problem List - Problems (1) Chest pain Code(s): R07.9 - CHEST PAIN, UNSPECIFIED (2) COPD (chronic obstructive pulmonary disease) Code(s): J44.9 - CHRONIC OBSTRUCTIVE PULMONARY DISEASE, UNSPECIFIED Qualifiers : COPD type: COPD with acute exacerbation Qualified Code(s): J44.1 - Chronic obstructive pulmonary disease with (acute) exacerbation (3) Chronic respiratory failure with hypoxia Code(s): J96.11 - CHRONIC RESPIRATORY FAILURE WITH HYPOXIA (4) Elevated liver enzymes Code(s): R74.8 - ABNORMAL LEVELS OF OTHER SERUM ENZYMES (5) Chronic diastolic (congestive) heart failure Code(s): I50.32 - CHRONIC DIASTOLIC (CONGESTIVE) HEART FAILURE (6) Pulmonary hypertension Code(s): I27.2 - OTHER SECONDARY PULMONARY HYPERTENSION
--- NOTE | 2016-08-22 13:25 | PN ---
Progress Note (short form) - Note Progress Note: Reported to short of breath early in the morning. Stabilized after nebs. Feeling better now. Denies chest pain, shortness of breath, palpitation or dizziness. Afebrile. Discussed case with daughter present by the bedside. Medication List Current Medications: Active Medications Acetaminophen (Tylenol -) 650 mg PO Q4H PRN PRN Reason: FEVER OR PAIN Albuterol Sulfate (Ventolin 0.083% Nebulizer Soln -) 1 amp NEB Q4H PRN PRN Reason: SHORT OF BREATH/WHEEZING Last Admin: 08/19/16 09:15 Dose: 1 amp Albuterol/Ipratropium (Duoneb -) 1 amp NEB QIDR [facility] Last Admin: 08/20/16 11:13 Dose: 1 amp Alprazolam (Xanax -) 0.25 mg PO BID PRN Last Admin: 08/19/16 10:35 Dose: 0.25 mg Atorvastatin Calcium (Lipitor -) 20 mg PO HS [facility] Last Admin: 08/19/16 22:24 Dose: 20 mg Budesonide/Formoterol Fumarate (Symbicort 160/4.5mcg -) 2 puff IH BID [facility] Last Admin: 08/20/16 09:26 Dose: 2 puff Cholecalciferol (Vitamin D3 -) 1,000 unit PO DAILY [facility] Last Admin: 08/20/16 09:26 Dose: 1,000 unit Clopidogrel Bisulfate (Plavix -) 75 mg PO DAILY [facility] Last Admin: 08/20/16 09:26 Dose: 75 mg Enoxaparin Sodium (Lovenox -) 40 mg SQ DAILY [facility] Last Admin: 08/20/16 09:26 Dose: 40 mg Piperacillin Sod/Tazobactam Sod (Zosyn 3.375gm Ivpb (Pre-Docked)) 50 mls @ 100 mls/hr IVPB Q8H-IV ED[facility]IN PRN Reason: Protocol Last Admin: 08/20/16 09:27 Dose: 100 mls/hr Insulin Aspart (Novolog Vial Sliding Scale -) 0 vial SQ ACHS EDVIN PRN Reason: Protocol Last Admin: 08/20/16 12:25 Dose: 3 units Losartan Potassium (Cozaar -) 50 mg PO DAILY [facility] Last Admin: 08/20/16 09:26 Dose: 50 mg Metformin HCl (Glucophage -) 1,000 mg PO BIDAC [facility] Last Admin: 08/20/16 06:20 Dose: 1,000 mg Metoprolol Succinate (Toprol Xl -) 25 mg PO DAILY [facility] Last Admin: 08/20/16 09:26 Dose: 25 mg Nystatin (Nystatin Oral Suspension -) 500,000 units PO Q6HPO [facility] Last Admin: 08/20/16 12:26 Dose: 500,000 units Potassium Phos/Sodium Phos (Phos-Nak Packet -) 1 packet PO TID [facility] Last Admin: 08/20/16 06:20 Dose: 1 packet Prednisone (Deltasone -) 20 mg PO BID [facility] Last Admin: 08/20/16 09:26 Dose: 20 mg Vital Signs Period Temp Pulse Resp BP Sys/Lopez Pulse Ox Last 24 Hr 98.2 F-98.8 F 77-113 20-20 114-157/58-113 93-96 Constitutional: Yes: Well Nourished, No Distress, Calm Cardiovascular: Yes: Regular Rate and Rhythm. No: Gallop, Murmur, Rub Respiratory: Yes: Regular, On Nasal O2, Rhonchi (slight). No: Rales, Wheezes Gastrointestinal: Yes: Normal Bowel Sounds, Soft. No: Distention, Tenderness Extremities: Yes: WNL Edema: Yes Edema: LLE: 1+, RLE: 1+ CBC, BMP 08/22/16 06:15 08/21/16 16:10 Problem List - Problems (1) Acute and chronic respiratory failure Code(s): J96.20 - ACUTE AND CHR RESP FAILURE, UNSP W HYPOXIA OR HYPERCAPNIA Qualifiers: Respiratory failure complication: hypoxia Qualified Code(s): J96.21 - Acute and chronic respiratory failure with hypoxia (2) Pneumonia Code(s): J18.9 - PNEUMONIA, UNSPECIFIED ORGANISM (3) Chest pain Code(s): R07.9 - CHEST PAIN, UNSPECIFIED (4) Chronic diastolic (congestive) heart failure Code(s): I50.32 - CHRONIC DIASTOLIC (CONGESTIVE) HEART FAILURE (5) COPD (chronic obstructive pulmonary disease) Code(s): J44.9 - CHRONIC OBSTRUCTIVE PULMONARY DISEASE, UNSPECIFIED Qualifiers : COPD type: COPD with acute exacerbation Qualified Code(s): J44.1 - Chronic obstructive pulmonary disease with (acute) exacerbation (6) HTN (hypertension) Code(s): I10 - ESSENTIAL (PRIMARY) HYPERTENSION (7) HLD (hyperlipidemia) Code(s): E78.5 - HYPERLIPIDEMIA, UNSPECIFIED (8) Diabetes Code(s): E11.9 - TYPE 2 DIABETES MELLITUS WITHOUT COMPLICATIONS Qualifiers: Diabetes mellitus type: type 2 Assessment/Plan (1) Acute on chronic respiratory failure -Improving. -continue oxygen support -wean prednisone -appreciate pulmonary assistance, note reviewed (2) Pneumonia Assessment/Plan: - Improving. - White count trending down nicely. - Appreciate ID follow up. Code(s): J18.9 - PNEUMONIA, UNSPECIFIED ORGANISM (3) Chest pain Assessment/Plan: -resolved -pleurisy secondary to pneumonia Code(s): R07.9 - CHEST PAIN, UNSPECIFIED (4) Chronic diastolic (congestive) heart failure Assessment/Plan: -cardiology following -no need for lasix Code(s): I50.32 - CHRONIC DIASTOLIC (CONGESTIVE) HEART FAILURE (5) COPD (chronic obstructive pulmonary disease) Assessment/Plan: -much improved today -pulmonary following Code(s): J44.9 - CHRONIC OBSTRUCTIVE PULMONARY DISEASE, UNSPECIFIED Qualifiers : COPD type: COPD with acute exacerbation Qualified Code(s): J44.1 - Chronic obstructive pulmonary disease with (acute) exacerbation (6) HTN (hypertension) Assessment/Plan: -continue cozaar and toprol xl Code(s): I10 - ESSENTIAL (PRIMARY) HYPERTENSION (7) HLD (hyperlipidemia) Assessment/Plan: -continue lipitor Code(s): E78.5 - HYPERLIPIDEMIA, UNSPECIFIED (8) Diabetes -continue diabetic diet -continue metformin and SSI -hyperglycemia secondary to steroids
[2016-08-22] MEDS: ALBUTEROL SO4 2.5/IPRATROPIUM 0.5 INH SOL 3 ML VIAL.NEB. NEB SCH ×2 (17:46→23:09)
[2016-08-22] MEDS ORDERED: INSULIN (NOVOLOG) ASPART 100 UNITS/ML 10ML VIAL ONE (18:18)
[2016-08-22] MEDS: ATORVASTATIN CA 20 MG TABLET (FP) PO SCH (21:41)
[2016-08-22] MEDS: NYSTATIN 100,000 UNIT/GM TOPICAL CREAM 15 GM TUBE TP SCH (21:43)
[2016-08-23] MEDS: PIPERACILLIN/TAZOB 3.375 GM 50 ML IVPB SCH ×3 (01:08→17:06)
[2016-08-23] MEDS: NYSTATIN 500,000 UNITS/5 ML SUSPENSION PO SCH ×4 (01:08→17:06)
[2016-08-23] MEDS: INSULIN SLIDING SCALE (NOVOLOG) 1 VIAL SQ SCH ×4 (06:42→21:21)
[2016-08-23] MEDS: ALBUTEROL SO4 2.5/IPRATROPIUM 0.5 INH SOL 3 ML VIAL.NEB. NEB SCH ×3 (06:58→18:33)
[2016-08-23] MEDS: ALBUTEROL SO4 0.083% IH SOL 2.5 MG/3 ML VIAL.NEB. NEB PRN (07:10)
[2016-08-23] MEDS ORDERED: INSULIN (NOVOLOG) ASPART 100 UNITS/ML 10ML VIAL ONE ×3 (07:12→21:15)
[2016-08-23 07:18] LABS: BASOPHIL 0.2 % (0-2.0); MCH 28.7 pg (25.7-33.7); MCHC 32.1 g/dl (32.0-35.9); MEAN CELL VOLUME 89.4 fl (80-96); MEAN PLT VOLUME 8.1 fl (7.5-11.1); NEUTROPHILS 88.1 % (42.8-82.8); PLATELET COUNT 346 K/MM3 (134-434); RDW 15.2 % (11.9-15.9); WHITE BLOOD COUNT 16.2 K/mm3 (4.0-10.0)
[2016-08-23 07:41] LABS: ALBUMIN 2.6 g/dl (3.4-5.0); COCKROFT - GAULT 64.87; CREATININE 1.2 mg/dL (0.7-1.3)
[2016-08-23 07:43] LABS: BILIRUBIN,TOTAL 0.5 mg/dL (0.2-1.0); TOT PROT 6.3 g/dl (6.4-8.2)
[2016-08-23] MEDS: LOSARTAN POTASSIUM 50 MG TABLET (FP) PO SCH (09:05)
[2016-08-23] MEDS: predniSONE 20 MG TABLET (UD) PO SCH ×2 (09:05→21:22)
[2016-08-23] MEDS: CLOPIDOGREL BISULFATE 75 MG TABLET (FP) PO SCH (09:05)
[2016-08-23] MEDS: METOPROLOL SUCCINATE 25 MG TAB.SR.24H (FP) PO SCH (09:05)
[2016-08-23] MEDS: ENOXAPARIN NA (PORCINE) 40 MG/0.4 ML DISP.SYRIN SQ SCH (09:05)
[2016-08-23] MEDS: metFORMIN HCL 500 MG TABLET (FP) PO SCH ×2 (09:05→17:06)
[2016-08-23] MEDS: NYSTATIN 100,000 UNIT/GM TOPICAL CREAM 15 GM TUBE TP SCH ×2 (09:06→21:29)
[2016-08-23] MEDS: CHOLECALCIFEROL (VITAMIN D3) 1,000 UNIT TABLET (FP) PO SCH (09:06)
--- NOTE | 2016-08-23 10:52 | PN ---
Progress Note, Physician Chief Complaint: Mr Varma is without complaint. No cp, sob, n/v - Current Medication List Current Medications: Active Medications Acetaminophen (Tylenol -) 650 mg PO Q4H PRN PRN Reason: FEVER OR PAIN Albuterol Sulfate (Ventolin 0.083% Nebulizer Soln -) 1 amp NEB Q4H PRN PRN Reason: SHORT OF BREATH/WHEEZING Last Admin: 08/23/16 07:10 Dose: 1 amp Albuterol/Ipratropium (Duoneb -) 1 amp NEB QIDR [facility] Last Admin: 08/23/16 06:58 Dose: 1 amp Alprazolam (Xanax -) 0.25 mg PO BID PRN PRN Reason: ANXIETY Atorvastatin Calcium (Lipitor -) 20 mg PO HS [facility] Last Admin: 08/22/16 21:41 Dose: 20 mg Cholecalciferol (Vitamin D3 -) 1,000 unit PO DAILY [facility] Last Admin: 08/23/16 09:06 Dose: 1,000 unit Clopidogrel Bisulfate (Plavix -) 75 mg PO DAILY [facility] Last Admin: 08/23/16 09:05 Dose: 75 mg Enoxaparin Sodium (Lovenox -) 40 mg SQ DAILY [facility] Last Admin: 08/23/16 09:05 Dose: 40 mg Guaifenesin (Mucinex -) 1,200 mg PO BID [facility] Piperacillin Sod/Tazobactam Sod (Zosyn 3.375gm Ivpb (Pre-Docked)) 50 mls @ 100 mls/hr IVPB Q8H-IV [facility]IN PRN Reason: Protocol Last Admin: 08/23/16 09:12 Dose: 100 mls/hr Insulin Aspart (Novolog Vial Sliding Scale -) 0 vial SQ ACHS ED[facility]IN PRN Reason: Protocol Last Admin: 08/23/16 06:42 Dose: 1 units Metformin HCl (Glucophage -) 1,000 mg PO BIDAC [facility] Last Admin: 08/23/16 09:05 Dose: 1,000 mg Metoprolol Succinate (Toprol Xl -) 25 mg PO DAILY [facility] Last Admin: 08/23/16 09:05 Dose: 25 mg Nystatin (Nystatin Oral Suspension -) 500,000 units PO Q6HPO [facility] Last Admin: 08/23/16 06:43 Dose: Not Given Nystatin (Mycostatin Cream -) 1 applic TP BID [facility] Last Admin: 08/23/16 09:06 Dose: 1 applic Prednisone (Deltasone -) 20 mg PO BID [facility] Last Admin: 08/23/16 09:05 Dose: 20 mg Sodium Polystyrene Sulfonate (Kayexalate -) 30 gm PO ONCE ONE Stop: 08/23/16 10:43 - Objective Vital Signs: Vital Signs Temperature 98.1 F 08/23/16 07:00 Pulse Rate 85 08/23/16 07:00 Respiratory Rate 22 08/23/16 07:00 Blood Pressure 150/99 08/23/16 07:00 O2 Sat by Pulse Oximetry (%) 96 08/22/16 21:00 Constitutional: Yes: Well Nourished, No Distress, Calm Cardiovascular: Yes: Regular Rate and Rhythm. No: Gallop, Murmur, Rub Respiratory: Yes: Regular, On Nasal O2, Rhonchi. No: Rales, Wheezes Gastrointestinal: Yes: Normal Bowel Sounds, Soft. No: Distention, Tenderness Extremities: Yes: WNL Edema: No Labs: CBC, BMP 08/23/16 05:50 08/23/16 05:50 INR, PTT INR 1.19 (0.82-1.09) H 08/12/16 14:11 Problem List - Problems (1) Acute and chronic respiratory failure Code(s): J96.20 - ACUTE AND CHR RESP FAILURE, UNSP W HYPOXIA OR HYPERCAPNIA Qualifiers: Respiratory failure complication: hypoxia Qualified Code(s): J96.21 - Acute and chronic respiratory failure with hypoxia (2) Pneumonia Code(s): J18.9 - PNEUMONIA, UNSPECIFIED ORGANISM (3) Chest pain Code(s): R07.9 - CHEST PAIN, UNSPECIFIED (4) Chronic diastolic (congestive) heart failure Code(s): I50.32 - CHRONIC DIASTOLIC (CONGESTIVE) HEART FAILURE (5) COPD (chronic obstructive pulmonary disease) Code(s): J44.9 - CHRONIC OBSTRUCTIVE PULMONARY DISEASE, UNSPECIFIED Qualifiers : COPD type: COPD with acute exacerbation Qualified Code(s): J44.1 - Chronic obstructive pulmonary disease with (acute) exacerbation (6) HTN (hypertension) Code(s): I10 - ESSENTIAL (PRIMARY) HYPERTENSION (7) HLD (hyperlipidemia) Code(s): E78.5 - HYPERLIPIDEMIA, UNSPECIFIED (8) Diabetes Code(s): E11.9 - TYPE 2 DIABETES MELLITUS WITHOUT COMPLICATIONS Qualifiers: Diabetes mellitus type: type 2 Assessment/Plan (1) Acute on chronic respiratory failure -continues to improve -RN notes morning hypoxia with thick sputum -? mucus plugging -case d/w pulmonary, trial of mucomyst -add mucinex -prednisone wean per pulmonary (2) Pneumonia Assessment/Plan: -leukocytosis improving -Dr Levy following -continue zosyn Code(s): J18.9 - PNEUMONIA, UNSPECIFIED ORGANISM (3) Chest pain Assessment/Plan: -resolved -pleurisy secondary to pneumonia Code(s): R07.9 - CHEST PAIN, UNSPECIFIED (4) Chronic diastolic (congestive) heart failure Assessment/Plan: -cardiology following -no need for lasix Code(s): I50.32 - CHRONIC DIASTOLIC (CONGESTIVE) HEART FAILURE (5) COPD (chronic obstructive pulmonary disease) Assessment/Plan: -stable -pulmonary following Code(s): J44.9 - CHRONIC OBSTRUCTIVE PULMONARY DISEASE, UNSPECIFIED Qualifiers : COPD type: COPD with acute exacerbation Qualified Code(s): J44.1 - Chronic obstructive pulmonary disease with (acute) exacerbation (6) HTN (hypertension) Assessment/Plan: -continue toprol xl -stop cozaar secondary to hyperkalemia Code(s): I10 - ESSENTIAL (PRIMARY) HYPERTENSION (7) HLD (hyperlipidemia) Assessment/Plan: -continue lipitor Code(s): E78.5 - HYPERLIPIDEMIA, UNSPECIFIED (8) Diabetes -continue diabetic diet -continue metformin and SSI -hyperglycemia secondary to steroids
[2016-08-23] MEDS ORDERED: SODIUM POLYSTYRENE SULFONATE 15 GM/60 ML BOTTLE PO ONE (11:15)
[2016-08-23] MEDS: guaiFENesin 600 MG TABLET.ER (FP) PO SCH ×2 (12:05→21:22)
--- NOTE | 2016-08-23 12:08 | PN ---
Progress Note, Physician Chief Complaint: resp failure History of Present Illness: breathing "sluggish" about same as on DOA, had gotten better and now worse worse when gets OOB for bathroom or eating no cp no palpit no leg swelling today - Current Medication List Current Medications: Active Medications Acetaminophen (Tylenol -) 650 mg PO Q4H PRN PRN Reason: FEVER OR PAIN Acetylcysteine (Mucomyst 20 Oral / Inh Use Only*) 200 mg NEB BID [facility] Albuterol Sulfate (Ventolin 0.083% Nebulizer Soln -) 1 amp NEB Q4H PRN PRN Reason: SHORT OF BREATH/WHEEZING Last Admin: 08/23/16 07:10 Dose: 1 amp Albuterol/Ipratropium (Duoneb -) 1 amp NEB QIDR [facility] Last Admin: 08/23/16 11:55 Dose: 1 amp Alprazolam (Xanax -) 0.25 mg PO BID PRN PRN Reason: ANXIETY Atorvastatin Calcium (Lipitor -) 20 mg PO HS [facility] Last Admin: 08/22/16 21:41 Dose: 20 mg Cholecalciferol (Vitamin D3 -) 1,000 unit PO DAILY [facility] Last Admin: 08/23/16 09:06 Dose: 1,000 unit Clopidogrel Bisulfate (Plavix -) 75 mg PO DAILY [facility] Last Admin: 08/23/16 09:05 Dose: 75 mg Enoxaparin Sodium (Lovenox -) 40 mg SQ DAILY [facility] Last Admin: 08/23/16 09:05 Dose: 40 mg Guaifenesin (Mucinex -) 1,200 mg PO BID [facility] Piperacillin Sod/Tazobactam Sod (Zosyn 3.375gm Ivpb (Pre-Docked)) 50 mls @ 100 mls/hr IVPB Q8H-IV EDVIN PRN Reason: Protocol Last Admin: 08/23/16 09:12 Dose: 100 mls/hr Insulin Aspart (Novolog Vial Sliding Scale -) 0 vial SQ ACHS [facility]IN PRN Reason: Protocol Last Admin: 08/23/16 06:42 Dose: 1 units Metformin HCl (Glucophage -) 1,000 mg PO BIDAC [facility] Last Admin: 08/23/16 09:05 Dose: 1,000 mg Metoprolol Succinate (Toprol Xl -) 25 mg PO DAILY [facility] Last Admin: 08/23/16 09:05 Dose: 25 mg Nystatin (Nystatin Oral Suspension -) 500,000 units PO Q6HPO [facility] Last Admin: 08/23/16 06:43 Dose: Not Given Nystatin (Mycostatin Cream -) 1 applic TP BID [facility] Last Admin: 08/23/16 09:06 Dose: 1 applic Prednisone (Deltasone -) 20 mg PO BID [facility] Last Admin: 08/23/16 09:05 Dose: 20 mg - Objective Vital Signs: Vital Signs Temperature 98.7 F 08/23/16 10:00 Pulse Rate 98 H 08/23/16 10:00 Respiratory Rate 20 08/23/16 10:00 Blood Pressure 158/86 08/23/16 10:00 O2 Sat by Pulse Oximetry (%) 96 08/22/16 21:00 Constitutional: Yes: Well Nourished, No Distress, Calm Cardiovascular: Yes: Regular Rate and Rhythm (decr intensity (c/w copd)), S1, S2. No: JVD, Gallop, Murmur Respiratory: Yes: Regular, CTA Bilaterally (decr'd diffusely)). No: Accessory Muscle Use, Rales, Wheezes Extremities: No: Cold Edema: No Neurological: Yes: Alert, Oriented Psychiatric: No: Agitated Labs: CBC, BMP 08/23/16 05:50 08/23/16 05:50 INR, PTT INR 1.19 (0.82-1.09) H 08/12/16 14:11 Assessment/Plan cta chest: no pe, no chf, +left infiltrates echo 04/2014: nl lv, rv tds, mod brian, mod mr, mod tr, rvsp 40-50, mild-mod , mod ar, ao root mild dilatation echo report reviewed: 08/13/16: mod-sev dec LV fn. apical inferior wall AK, mod global HK. NL rv. mod -sev ar. MIld-mod MR, mod TR. RVSP 50-60. bline ao dilation. a/p: 76 m hx htn, copd on home 02, hld, dm, cad s/p remote mi/pci, remote aortic graft endo repair, atrophic left kidney here with sob. pna, copd, sob, acute hypoxiac resp failure: -completed course of abx and has been on steroids but then worse hypoxia and repeat cxr showed new pna, now back on iv abx -also with trace effusions (blunted angles) on cxr since 08/19, not previously present on initial CXR -bnp 4900 initially--rpt today -test dose lasix 40 ivp x 1 today--evaluate sob, O2 requirements and CXR in am systolic cardiomyopathy - EF mod-sev decr'd on echo here - normal LVEF on echo here 04/2014--follows with dr kerr cardio, ? when/if LV dysfxns noted previously - no convincing acute chf here (see above disc'n) - CT chest 08/12 without pulmonary edema. - dose of lasix today - con't low dose toprol as doing (previously tolerated metoprolol 100 mg bid) - titrate up toprol as outpt if no bronchospasm suspected--defer to dr kerr - ARB on hold here sec to hyperkalemia--reassess later htn: -same meds, observe trend hld: -cont home statin atypical chest pain, cad s/p remote mi/pci: -no signs acs, ce's neg x2. cp on initial eval seemed related to msk/pna, not suggestive of cardiac etiology -cont home statin, arb, plavix. adding back bb - Systolic dysfunction. Will need f/u with dr kerr (cardio) for further outpatient work up if this is a new finding. mr, tr, ar, as: -moderate on prior echo, no signs of chf - stable on repeat echo h/o AAA endovasc repair: -outpt monitoring/followup (cirilo). 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 -prn lasix for this, as doing
[2016-08-23] MEDS ORDERED: FUROSEMIDE 40 MG/4 ML INJECTABLE VIAL IVPUSH ONE ×2 (13:00→17:21)
--- NOTE | 2016-08-23 13:02 | PN ---
Progress Note, Physician History of Present Illness: pulmonary alert,comfortable,+increased sob in am mproves after coughing up thick sputum - Current Medication List Current Medications: Active Medications Acetaminophen (Tylenol -) 650 mg PO Q4H PRN PRN Reason: FEVER OR PAIN Acetylcysteine (Mucomyst 20 Oral / Inh Use Only*) 200 mg NEB BID [facility] Albuterol Sulfate (Ventolin 0.083% Nebulizer Soln -) 1 amp NEB Q4H PRN PRN Reason: SHORT OF BREATH/WHEEZING Last Admin: 08/23/16 07:10 Dose: 1 amp Albuterol/Ipratropium (Duoneb -) 1 amp NEB QIDR [facility] Last Admin: 08/23/16 11:55 Dose: 1 amp Alprazolam (Xanax -) 0.25 mg PO BID PRN PRN Reason: ANXIETY Atorvastatin Calcium (Lipitor -) 20 mg PO HS [facility] Last Admin: 08/22/16 21:41 Dose: 20 mg Cholecalciferol (Vitamin D3 -) 1,000 unit PO DAILY [facility] Last Admin: 08/23/16 09:06 Dose: 1,000 unit Clopidogrel Bisulfate (Plavix -) 75 mg PO DAILY [facility] Last Admin: 08/23/16 09:05 Dose: 75 mg Enoxaparin Sodium (Lovenox -) 40 mg SQ DAILY [facility] Last Admin: 08/23/16 09:05 Dose: 40 mg Furosemide (Lasix Injection -) 40 mg IVPUSH ONCE ONE Stop: 08/23/16 12:05 Guaifenesin (Mucinex -) 1,200 mg PO BID [facility] Last Admin: 08/23/16 12:05 Dose: 1,200 mg Piperacillin Sod/Tazobactam Sod (Zosyn 3.375gm Ivpb (Pre-Docked)) 50 mls @ 100 mls/hr IVPB Q8H-IV ED[facility] PRN Reason: Protocol Last Admin: 08/23/16 09:12 Dose: 100 mls/hr Insulin Aspart (Novolog Vial Sliding Scale -) 0 vial SQ ACHS [facility] PRN Reason: Protocol Last Admin: 08/23/16 12:05 Dose: 5 units Metformin HCl (Glucophage -) 1,000 mg PO BIDAC [facility] Last Admin: 08/23/16 09:05 Dose: 1,000 mg Metoprolol Succinate (Toprol Xl -) 25 mg PO DAILY [facility] Last Admin: 08/23/16 09:05 Dose: 25 mg Nystatin (Nystatin Oral Suspension -) 500,000 units PO Q6HPO [facility] Last Admin: 08/23/16 12:06 Dose: 500,000 units Nystatin (Mycostatin Cream -) 1 applic TP BID [facility] Last Admin: 08/23/16 09:06 Dose: 1 applic Prednisone (Deltasone -) 20 mg PO BID [facility] Last Admin: 08/23/16 09:05 Dose: 20 mg - Objective Vital Signs: Vital Signs Temperature 98.7 F 08/23/16 10:00 Pulse Rate 98 H 08/23/16 10:00 Respiratory Rate 20 08/23/16 10:00 Blood Pressure 158/86 08/23/16 10:00 O2 Sat by Pulse Oximetry (%) 96 08/22/16 21:00 Constitutional: Yes: Well Nourished, Calm Eyes: Yes: WNL HENT: Yes: WNL Neck: Yes: WNL Cardiovascular: Yes: Regular Rate and Rhythm, S1, S2 Respiratory: Yes: Rhonchi (scattered matteo rhonchi) Gastrointestinal: Yes: Normal Bowel Sounds, Soft Extremities: Yes: WNL Edema: No Labs: CBC, BMP 08/23/16 05:50 08/23/16 05:50 INR, PTT INR 1.19 (0.82-1.09) H 08/12/16 14:11 Problem List - Problems (1) Acute and chronic respiratory failure Code(s): J96.20 - ACUTE AND CHR RESP FAILURE, UNSP W HYPOXIA OR HYPERCAPNIA Qualifiers: Respiratory failure complication: hypoxia Qualified Code(s): J96.21 - Acute and chronic respiratory failure with hypoxia Assessment/Plan Problem List - Problems (1) Chest pain Code(s): R07.9 - CHEST PAIN, UNSPECIFIED (2) COPD (chronic obstructive pulmonary disease) Code(s): J44.9 - CHRONIC OBSTRUCTIVE PULMONARY DISEASE, UNSPECIFIED (3) Chronic respiratory failure with hypoxia Code(s): J96.11 - CHRONIC RESPIRATORY FAILURE WITH HYPOXIA (4) Elevated liver enzymes Code(s): R74.8 - ABNORMAL LEVELS OF OTHER SERUM ENZYMES (5) Chronic diastolic (congestive) heart failure Code(s): I50.32 - CHRONIC DIASTOLIC (CONGESTIVE) HEART FAILURE (6) Pulmonary hypertension Code(s): I27.2 - OTHER SECONDARY PULMONARY HYPERTENSION Assessment/Plan Chest Pain Acute on chronic hypoxemic respiratory failure Pneumonia Severe COPD Emphysema LV Diastolic Dysfunction Pulmonary HTN Elevated LFTs improving - inhaled bronchodilators - O2 to keep SPo2 >90% - DVT prophylaxis - cont steroids - antibiotics as per ID - f/u chest x-rays - mucomyst - chest pt DR LOUISE
--- NOTE | 2016-08-23 18:27 | PN ---
Progress Note, Physician History of Present Illness: events noted from last night patient hypertensive sob cardio following now on ventomask says he is better than this morning - Current Medication List Current Medications: Active Medications Acetaminophen (Tylenol -) 650 mg PO Q4H PRN PRN Reason: FEVER OR PAIN Acetylcysteine (Mucomyst 20 Oral / Inh Use Only*) 200 mg NEB BID [facility] Albuterol Sulfate (Ventolin 0.083% Nebulizer Soln -) 1 amp NEB Q4H PRN PRN Reason: SHORT OF BREATH/WHEEZING Last Admin: 08/23/16 07:10 Dose: 1 amp Albuterol/Ipratropium (Duoneb -) 1 amp NEB QIDR [facility] Last Admin: 08/23/16 11:55 Dose: 1 amp Alprazolam (Xanax -) 0.25 mg PO BID PRN PRN Reason: ANXIETY Atorvastatin Calcium (Lipitor -) 20 mg PO HS [facility] Last Admin: 08/22/16 21:41 Dose: 20 mg Cholecalciferol (Vitamin D3 -) 1,000 unit PO DAILY [facility] Last Admin: 08/23/16 09:06 Dose: 1,000 unit Clopidogrel Bisulfate (Plavix -) 75 mg PO DAILY [facility] Last Admin: 08/23/16 09:05 Dose: 75 mg Enoxaparin Sodium (Lovenox -) 40 mg SQ DAILY [facility] Last Admin: 08/23/16 09:05 Dose: 40 mg Guaifenesin (Mucinex -) 1,200 mg PO BID [facility] Last Admin: 08/23/16 12:05 Dose: 1,200 mg Piperacillin Sod/Tazobactam Sod (Zosyn 3.375gm Ivpb (Pre-Docked)) 50 mls @ 100 mls/hr IVPB Q8H-IV [facility] PRN Reason: Protocol Last Admin: 08/23/16 17:06 Dose: 100 mls/hr Insulin Aspart (Novolog Vial Sliding Scale -) 0 vial SQ ACHS [facility] PRN Reason: Protocol Last Admin: 08/23/16 17:06 Dose: 3 units Metformin HCl (Glucophage -) 1,000 mg PO BIDAC [facility] Last Admin: 08/23/16 17:06 Dose: 1,000 mg Metoprolol Succinate (Toprol Xl -) 25 mg PO DAILY [facility] Last Admin: 08/23/16 09:05 Dose: 25 mg Nystatin (Nystatin Oral Suspension -) 500,000 units PO Q6HPO [facility] Last Admin: 08/23/16 17:06 Dose: 500,000 units Nystatin (Mycostatin Cream -) 1 applic TP BID [facility] Last Admin: 08/23/16 09:06 Dose: 1 applic Prednisone (Deltasone -) 20 mg PO BID [facility] Last Admin: 08/23/16 09:05 Dose: 20 mg - Objective Vital Signs: Vital Signs Temperature 98.2 F 08/23/16 13:56 Pulse Rate 100 H 08/23/16 13:56 Respiratory Rate 20 08/23/16 13:56 Blood Pressure 154/96 08/23/16 13:56 O2 Sat by Pulse Oximetry (%) 95 08/23/16 13:32 Constitutional: Yes: Calm, Mild Distress Cardiovascular: Yes: S1, S2 Respiratory: Yes: Regular, On Venti-Mask, Poor Air Entry, Other Gastrointestinal: Yes: Normal Bowel Sounds, Soft Musculoskeletal: Yes: WNL Extremities: Yes: WNL Neurological: Yes: Alert, Oriented Psychiatric: Yes: Alert, Oriented Labs: CBC, BMP 08/23/16 05:50 08/23/16 05:50 INR, PTT INR 1.19 (0.82-1.09) H 08/12/16 14:11 Assessment/Plan Problem List - Problems (1) Acute and chronic respiratory failure Code(s): J96.20 - ACUTE AND CHR RESP FAILURE, UNSP W HYPOXIA OR HYPERCAPNIA Qualifiers: Respiratory failure complication: hypoxia Qualified Code(s): J96.21 - Acute and chronic respiratory failure with hypoxia (2) Pneumonia Code(s): J18.9 - PNEUMONIA, UNSPECIFIED ORGANISM (3) Chest pain Code(s): R07.9 - CHEST PAIN, UNSPECIFIED (4) Chronic diastolic (congestive) heart failure Code(s): I50.32 - CHRONIC DIASTOLIC (CONGESTIVE) HEART FAILURE (5) COPD (chronic obstructive pulmonary disease) Code(s): J44.9 - CHRONIC OBSTRUCTIVE PULMONARY DISEASE, UNSPECIFIED Qualifiers : COPD type: COPD with acute exacerbation Qualified Code(s): J44.1 - Chronic obstructive pulmonary disease with (acute) exacerbation (6) HTN (hypertension) Code(s): I10 - ESSENTIAL (PRIMARY) HYPERTENSION (7) HLD (hyperlipidemia) Code(s): E78.5 - HYPERLIPIDEMIA, UNSPECIFIED (8) Diabetes Code(s): E11.9 - TYPE 2 DIABETES MELLITUS WITHOUT COMPLICATIONS Qualifiers: Diabetes mellitus type: type 2 patient now needing resp support plan continue abx will complete the course incentive eddie rest as per pul/primary care patient doing well i am also worried if there is an aspiration element
[2016-08-23] MEDS ORDERED: PT OWN MED DRAWER 7, Y5N ONE (21:16)
[2016-08-23] MEDS: ALPRAZolam 0.25 MG TABLET PO PRN (21:22)
[2016-08-23] MEDS: ATORVASTATIN CA 20 MG TABLET (FP) PO SCH (21:22)
[2016-08-23] MEDS: ACETYLCYSTEINE 20% 200MG/ML 30 ML VIAL *FOR ORAL / INH USE ONLY NEB SCH (23:30)
[2016-08-24] MEDS: ALBUTEROL SO4 2.5/IPRATROPIUM 0.5 INH SOL 3 ML VIAL.NEB. NEB SCH ×5 (00:01→23:15)
[2016-08-24] MEDS: PIPERACILLIN/TAZOB 3.375 GM 50 ML IVPB SCH ×3 (01:10→17:04)
[2016-08-24] MEDS: NYSTATIN 500,000 UNITS/5 ML SUSPENSION PO SCH ×5 (01:11→23:05)
[2016-08-24] MEDS ORDERED: INSULIN (NOVOLOG) ASPART 100 UNITS/ML 10ML VIAL ONE ×3 (06:07→17:20)
[2016-08-24] MEDS: metFORMIN HCL 500 MG TABLET (FP) PO SCH ×2 (06:11→16:55)
[2016-08-24] MEDS: INSULIN SLIDING SCALE (NOVOLOG) 1 VIAL SQ SCH ×4 (06:11→22:00)
[2016-08-24 08:03] LABS: BASOPHIL 0.2 % (0-2.0); MCH 28.9 pg (25.7-33.7); MCHC 32.5 g/dl (32.0-35.9); MEAN CELL VOLUME 89.1 fl (80-96); MEAN PLT VOLUME 8.1 fl (7.5-11.1); NEUTROPHILS 90.9 % (42.8-82.8); PLATELET COUNT 289 K/MM3 (134-434); RDW 15.2 % (11.9-15.9); WHITE BLOOD COUNT 13.2 K/mm3 (4.0-10.0)
[2016-08-24 08:32] LABS: CALCIUM 8.4 mg/dL (8.5-10.1); COCKROFT - GAULT 63.85; CREATININE 1.2 mg/dL (0.7-1.3); MAGNESIUM 1.7 mg/dL (1.8-2.4); PHOSPHOROUS 3.8 mg/dL (2.5-4.9)
[2016-08-24] MEDS: ENOXAPARIN NA (PORCINE) 40 MG/0.4 ML DISP.SYRIN SQ SCH (09:42)
[2016-08-24] MEDS: NYSTATIN 100,000 UNIT/GM TOPICAL CREAM 15 GM TUBE TP SCH ×2 (09:42→22:00)
[2016-08-24] MEDS: guaiFENesin 600 MG TABLET.ER (FP) PO SCH ×2 (09:42→22:00)
[2016-08-24] MEDS: predniSONE 20 MG TABLET (UD) PO SCH (09:42)
[2016-08-24] MEDS: CHOLECALCIFEROL (VITAMIN D3) 1,000 UNIT TABLET (FP) PO SCH (09:43)
[2016-08-24] MEDS: CLOPIDOGREL BISULFATE 75 MG TABLET (FP) PO SCH (09:43)
[2016-08-24] MEDS: METOPROLOL SUCCINATE 25 MG TAB.SR.24H (FP) PO SCH (09:43)
[2016-08-24] MEDS: ACETYLCYSTEINE 20% 200MG/ML 30 ML VIAL *FOR ORAL / INH USE ONLY NEB SCH (11:10)
--- NOTE | 2016-08-24 11:40 | PN ---
Progress Note, Physician History of Present Illness: pulmonary alert,feeling better,less dyspneic,+ cough thick secretions - Current Medication List Current Medications: Active Medications Acetaminophen (Tylenol -) 650 mg PO Q4H PRN PRN Reason: FEVER OR PAIN Acetylcysteine (Mucomyst 20 Oral / Inh Use Only*) 200 mg NEB BID [facility] Last Admin: 08/24/16 11:10 Dose: 200 mg Albuterol Sulfate (Ventolin 0.083% Nebulizer Soln -) 1 amp NEB Q4H PRN PRN Reason: SHORT OF BREATH/WHEEZING Last Admin: 08/23/16 07:10 Dose: 1 amp Albuterol/Ipratropium (Duoneb -) 1 amp NEB QIDR [facility] Last Admin: 08/24/16 05:58 Dose: 1 amp Alprazolam (Xanax -) 0.25 mg PO BID PRN PRN Reason: ANXIETY Last Admin: 08/23/16 21:22 Dose: 0.25 mg Atorvastatin Calcium (Lipitor -) 20 mg PO HS [facility] Last Admin: 08/23/16 21:22 Dose: 20 mg Cholecalciferol (Vitamin D3 -) 1,000 unit PO DAILY [facility] Last Admin: 08/24/16 09:43 Dose: 1,000 unit Clopidogrel Bisulfate (Plavix -) 75 mg PO DAILY [facility] Last Admin: 08/24/16 09:43 Dose: 75 mg Enoxaparin Sodium (Lovenox -) 40 mg SQ DAILY [facility] Last Admin: 08/24/16 09:42 Dose: 40 mg Guaifenesin (Mucinex -) 1,200 mg PO BID [facility] Last Admin: 08/24/16 09:42 Dose: 1,200 mg Piperacillin Sod/Tazobactam Sod (Zosyn 3.375gm Ivpb (Pre-Docked)) 50 mls @ 100 mls/hr IVPB Q8H-IV [facility] PRN Reason: Protocol Last Admin: 08/24/16 09:43 Dose: 100 mls/hr Insulin Aspart (Novolog Vial Sliding Scale -) 0 vial SQ ACHS [facility] PRN Reason: Protocol Last Admin: 08/24/16 06:11 Dose: 1 units Metformin HCl (Glucophage -) 1,000 mg PO BIDAC [facility] Last Admin: 08/24/16 06:11 Dose: 1,000 mg Metoprolol Succinate (Toprol Xl -) 25 mg PO DAILY [facility] Last Admin: 08/24/16 09:43 Dose: 25 mg Nystatin (Nystatin Oral Suspension -) 500,000 units PO Q6HPO [facility] Last Admin: 08/24/16 06:11 Dose: 500,000 units Nystatin (Mycostatin Cream -) 1 applic TP BID [facility] Last Admin: 08/24/16 09:42 Dose: 1 applic Prednisone (Deltasone -) 20 mg PO BID [facility] Last Admin: 08/24/16 09:42 Dose: 20 mg - Objective Vital Signs: Vital Signs Temperature 98 F 08/24/16 10:00 Pulse Rate 90 08/24/16 10:00 Respiratory Rate 20 08/24/16 10:00 Blood Pressure 124/78 08/24/16 10:00 O2 Sat by Pulse Oximetry (%) 96 08/24/16 09:00 Constitutional: Yes: Well Nourished, Calm Eyes: Yes: WNL HENT: Yes: WNL Neck: Yes: WNL Cardiovascular: Yes: Regular Rate and Rhythm, S1, S2 Respiratory: Yes: Rhonchi (few scattered rhonchi) Gastrointestinal: Yes: Normal Bowel Sounds, Soft Extremities: Yes: WNL Edema: No Labs: CBC, BMP 08/24/16 06:35 08/24/16 06:35 INR, PTT INR 1.19 (0.82-1.09) H 08/12/16 14:11 - ....Imaging Chest X-ray: Report Reviewed, Image Reviewed (increased infiltrate left lung) Problem List - Problems (1) Acute and chronic respiratory failure Code(s): J96.20 - ACUTE AND CHR RESP FAILURE, UNSP W HYPOXIA OR HYPERCAPNIA Qualifiers: Respiratory failure complication: hypoxia Qualified Code(s): J96.21 - Acute and chronic respiratory failure with hypoxia Assessment/Plan Problem List - Problems (1) Chest pain Code(s): R07.9 - CHEST PAIN, UNSPECIFIED (2) COPD (chronic obstructive pulmonary disease) Code(s): J44.9 - CHRONIC OBSTRUCTIVE PULMONARY DISEASE, UNSPECIFIED (3) Chronic respiratory failure with hypoxia Code(s): J96.11 - CHRONIC RESPIRATORY FAILURE WITH HYPOXIA (4) Elevated liver enzymes Code(s): R74.8 - ABNORMAL LEVELS OF OTHER SERUM ENZYMES (5) Chronic diastolic (congestive) heart failure Code(s): I50.32 - CHRONIC DIASTOLIC (CONGESTIVE) HEART FAILURE (6) Pulmonary hypertension Code(s): I27.2 - OTHER SECONDARY PULMONARY HYPERTENSION Assessment/Plan Chest Pain Acute on chronic hypoxemic respiratory failure Pneumonia Severe COPD Emphysema LV Diastolic Dysfunction Pulmonary HTN Elevated LFTs - inhaled bronchodilators - O2 to keep SPo2 >90% - DVT prophylaxis - steroid taper - antibiotics as per ID - f/u chest x-ray in am - mucomyst - chest pt DR LOUISE
--- NOTE | 2016-08-24 11:52 | PN ---
Progress Note, Physician Chief Complaint: Mr Varma says his breathing is ok but not much better. No cp or n/v. - Current Medication List Current Medications: Active Medications Acetaminophen (Tylenol -) 650 mg PO Q4H PRN PRN Reason: FEVER OR PAIN Acetylcysteine (Mucomyst 20 Oral / Inh Use Only*) 200 mg NEB BID [facility] Last Admin: 08/24/16 11:10 Dose: 200 mg Albuterol Sulfate (Ventolin 0.083% Nebulizer Soln -) 1 amp NEB Q4H PRN PRN Reason: SHORT OF BREATH/WHEEZING Last Admin: 08/23/16 07:10 Dose: 1 amp Albuterol/Ipratropium (Duoneb -) 1 amp NEB QIDR [facility] Last Admin: 08/24/16 05:58 Dose: 1 amp Alprazolam (Xanax -) 0.25 mg PO BID PRN PRN Reason: ANXIETY Last Admin: 08/23/16 21:22 Dose: 0.25 mg Atorvastatin Calcium (Lipitor -) 20 mg PO HS [facility] Last Admin: 08/23/16 21:22 Dose: 20 mg Cholecalciferol (Vitamin D3 -) 1,000 unit PO DAILY [facility] Last Admin: 08/24/16 09:43 Dose: 1,000 unit Clopidogrel Bisulfate (Plavix -) 75 mg PO DAILY [facility] Last Admin: 08/24/16 09:43 Dose: 75 mg Enoxaparin Sodium (Lovenox -) 40 mg SQ DAILY [facility] Last Admin: 08/24/16 09:42 Dose: 40 mg Guaifenesin (Mucinex -) 1,200 mg PO BID [facility] Last Admin: 08/24/16 09:42 Dose: 1,200 mg Piperacillin Sod/Tazobactam Sod (Zosyn 3.375gm Ivpb (Pre-Docked)) 50 mls @ 100 mls/hr IVPB Q8H-IV [facility] PRN Reason: Protocol Last Admin: 08/24/16 09:43 Dose: 100 mls/hr Insulin Aspart (Novolog Vial Sliding Scale -) 0 vial SQ ACHS [facility] PRN Reason: Protocol Last Admin: 08/24/16 06:11 Dose: 1 units Metformin HCl (Glucophage -) 1,000 mg PO BIDAC [facility] Last Admin: 08/24/16 06:11 Dose: 1,000 mg Metoprolol Succinate (Toprol Xl -) 25 mg PO DAILY [facility] Last Admin: 08/24/16 09:43 Dose: 25 mg Nystatin (Nystatin Oral Suspension -) 500,000 units PO Q6HPO [facility] Last Admin: 08/24/16 06:11 Dose: 500,000 units Nystatin (Mycostatin Cream -) 1 applic TP BID [facility] Last Admin: 08/24/16 09:42 Dose: 1 applic Prednisone (Deltasone -) 20 mg PO BID [facility] Last Admin: 08/24/16 09:42 Dose: 20 mg - Objective Vital Signs: Vital Signs Temperature 98 F 08/24/16 10:00 Pulse Rate 90 08/24/16 10:00 Respiratory Rate 20 08/24/16 10:00 Blood Pressure 124/78 08/24/16 10:00 O2 Sat by Pulse Oximetry (%) 96 08/24/16 09:00 Constitutional: Yes: Well Nourished, No Distress, Calm Cardiovascular: Yes: Regular Rate and Rhythm. No: Gallop, Murmur, Rub Respiratory: Yes: Regular, CTA Bilaterally, On Nasal O2. No: Rales, Rhonchi, Wheezes Gastrointestinal: Yes: Normal Bowel Sounds, Soft. No: Distention, Tenderness Extremities: Yes: WNL Edema: No Labs: CBC, BMP 08/24/16 06:35 08/24/16 06:35 INR, PTT INR 1.19 (0.82-1.09) H 08/12/16 14:11 Problem List - Problems (1) Acute and chronic respiratory failure Code(s): J96.20 - ACUTE AND CHR RESP FAILURE, UNSP W HYPOXIA OR HYPERCAPNIA Qualifiers: Respiratory failure complication: hypoxia Qualified Code(s): J96.21 - Acute and chronic respiratory failure with hypoxia (2) Pneumonia Code(s): J18.9 - PNEUMONIA, UNSPECIFIED ORGANISM (3) Chest pain Code(s): R07.9 - CHEST PAIN, UNSPECIFIED (4) Chronic diastolic (congestive) heart failure Code(s): I50.32 - CHRONIC DIASTOLIC (CONGESTIVE) HEART FAILURE (5) COPD (chronic obstructive pulmonary disease) Code(s): J44.9 - CHRONIC OBSTRUCTIVE PULMONARY DISEASE, UNSPECIFIED Qualifiers : COPD type: COPD with acute exacerbation Qualified Code(s): J44.1 - Chronic obstructive pulmonary disease with (acute) exacerbation (6) HTN (hypertension) Code(s): I10 - ESSENTIAL (PRIMARY) HYPERTENSION (7) HLD (hyperlipidemia) Code(s): E78.5 - HYPERLIPIDEMIA, UNSPECIFIED (8) Diabetes Code(s): E11.9 - TYPE 2 DIABETES MELLITUS WITHOUT COMPLICATIONS Qualifiers: Diabetes mellitus type: type 2 Assessment/Plan (1) Acute on chronic respiratory failure -pulmonary following -continue mucinex and mucomyst -still with very thick secretions that are difficult to expactorate -weaning steroids -continue antibiotics -chest PT (2) Pneumonia Assessment/Plan: -leukocytosis improving -Dr Levy following and note reviewed -continue zosyn Code(s): J18.9 - PNEUMONIA, UNSPECIFIED ORGANISM (3) Chest pain Assessment/Plan: -resolved -pleurisy secondary to pneumonia Code(s): R07.9 - CHEST PAIN, UNSPECIFIED (4) Chronic diastolic (congestive) heart failure Assessment/Plan: -cardiology following -BNP elevated -received dose of lasix yesterday Code(s): I50.32 - CHRONIC DIASTOLIC (CONGESTIVE) HEART FAILURE (5) COPD (chronic obstructive pulmonary disease) Assessment/Plan: -stable -pulmonary following Code(s): J44.9 - CHRONIC OBSTRUCTIVE PULMONARY DISEASE, UNSPECIFIED Qualifiers : COPD type: COPD with acute exacerbation Qualified Code(s): J44.1 - Chronic obstructive pulmonary disease with (acute) exacerbation (6) HTN (hypertension) Assessment/Plan: -continue toprol xl -stop cozaar secondary to hyperkalemia Code(s): I10 - ESSENTIAL (PRIMARY) HYPERTENSION (7) HLD (hyperlipidemia) Assessment/Plan: -continue lipitor Code(s): E78.5 - HYPERLIPIDEMIA, UNSPECIFIED (8) Diabetes -continue diabetic diet -continue metformin and SSI -hyperglycemia secondary to steroids
--- NOTE | 2016-08-24 12:39 | PN ---
Progress Note (short form) - Note Progress Note: Chief Complaint: resp failure History of Present Illness: S/p lasix 40 mg IV x 2 yesterday. Dyspnea improving. no cp no palpit no leg swelling, dizziness Current Medications Acetaminophen (Tylenol -) 650 mg PO Q4H PRN PRN Reason: FEVER OR PAIN Acetylcysteine (Mucomyst 20 Oral / Inh Use Only*) 200 mg NEB BID [facility] Last Admin: 08/24/16 11:10 Dose: 200 mg Albuterol Sulfate (Ventolin 0.083% Nebulizer Soln -) 1 amp NEB Q4H PRN PRN Reason: SHORT OF BREATH/WHEEZING Last Admin: 08/23/16 07:10 Dose: 1 amp Albuterol/Ipratropium (Duoneb -) 1 amp NEB QIDR [facility] Last Admin: 08/24/16 11:56 Dose: 1 amp Alprazolam (Xanax -) 0.25 mg PO BID PRN PRN Reason: ANXIETY Last Admin: 08/23/16 21:22 Dose: 0.25 mg Atorvastatin Calcium (Lipitor -) 20 mg PO HS [facility] Last Admin: 08/23/16 21:22 Dose: 20 mg Cholecalciferol (Vitamin D3 -) 1,000 unit PO DAILY [facility] Last Admin: 08/24/16 09:43 Dose: 1,000 unit Clopidogrel Bisulfate (Plavix -) 75 mg PO DAILY [facility] Last Admin: 08/24/16 09:43 Dose: 75 mg Enoxaparin Sodium (Lovenox -) 40 mg SQ DAILY [facility] Last Admin: 08/24/16 09:42 Dose: 40 mg Guaifenesin (Mucinex -) 1,200 mg PO BID [facility] Last Admin: 08/24/16 09:42 Dose: 1,200 mg Piperacillin Sod/Tazobactam Sod (Zosyn 3.375gm Ivpb (Pre-Docked)) 50 mls @ 100 mls/hr IVPB Q8H-IV EDVIN PRN Reason: Protocol Last Admin: 08/24/16 09:43 Dose: 100 mls/hr Insulin Aspart (Novolog Vial Sliding Scale -) 0 vial SQ ACHS [facility] PRN Reason: Protocol Last Admin: 08/24/16 12:34 Dose: 3 units Metformin HCl (Glucophage -) 1,000 mg PO BIDAC [facility] Last Admin: 08/24/16 06:11 Dose: 1,000 mg Metoprolol Succinate (Toprol Xl -) 25 mg PO DAILY [facility] Last Admin: 08/24/16 09:43 Dose: 25 mg Nystatin (Nystatin Oral Suspension -) 500,000 units PO Q6HPO [facility] Last Admin: 08/24/16 12:36 Dose: 500,000 units Nystatin (Mycostatin Cream -) 1 applic TP BID [facility] Last Admin: 08/24/16 09:42 Dose: 1 applic Prednisone (Deltasone -) 30 mg PO DAILY [facility] Vital Signs - 24 hr 08/23/16 08/23/16 08/23/16 13:32 13:56 18:42 Temperature 98.2 F 98.1 F Pulse Rate 97 H 100 H 110 H Respiratory 20 18 Rate Blood Pressure 154/96 166/118 O2 Sat by Pulse 95 Oximetry (%) 08/23/16 08/24/16 08/24/16 21:00 06:00 09:00 Temperature 98.0 F 97.8 F Pulse Rate 91 H 73 Respiratory 20 20 Rate Blood Pressure 120/74 131/75 O2 Sat by Pulse 95 96 Oximetry (%) 08/24/16 08/24/16 10:00 11:55 Temperature 98 F Pulse Rate 90 90 Respiratory 20 Rate Blood Pressure 124/78 O2 Sat by Pulse 96 Oximetry (%) Intake & Output 08/22/16 08/23/16 08/24/16 08/25/16 07:59 07:59 07:59 07:59 Intake Total 720 130 420 Output Total 250 250 Balance 470 -120 420 Weight 192 lb 3.2 oz 190 lb 2 oz 187 lb 2 oz Constitutional: Yes: Well Nourished, No Distress, Calm Cardiovascular: Yes: Regular Rate and Rhythm (decr intensity (c/w copd)), S1, S2. No: JVD, Gallop, Murmur Respiratory: Yes: Regular, CTA Bilaterally (decr'd diffusely)). No: Accessory Muscle Use, Rales, Wheezes Extremities: No: Cold Edema: No Neurological: Yes: Alert, Oriented Psychiatric: No: Agitated Labs: CBC, BMP 08/24/16 06:35 08/24/16 06:35 Laboratory Tests 08/24/16 06:35 Magnesium 1.7 L Assessment/Plan cta chest: no pe, no chf, +left infiltrates echo 04/2014: nl lv, rv tds, mod brian, mod mr, mod tr, rvsp 40-50, mild-mod , mod ar, ao root mild dilatation echo report reviewed: 08/13/16: mod-sev dec LV fn. apical inferior wall AK, mod global HK. NL rv. mod -sev ar. MIld-mod MR, mod TR. RVSP 50-60. bline ao dilation. cxr 08/24: scattered airspace opacities in left lung conc for PNA. minimal blunting of left costrophrenic angle. a/p: 76 m hx htn, copd on home 02, hld, dm, cad s/p remote mi/pci, remote aortic graft endo repair, atrophic left kidney here with sob. pna, copd, sob, acute hypoxiac resp failure: -completed course of abx and has been on steroids but then worse hypoxia and repeat cxr showed new pna, now back on iv abx -also with trace effusions (blunted angles) on cxr since 08/19, not previously present on initial CXR -08/23 BNP 25K, up from 4900.per RN phone call, pt seems very tired, moreso than usual, bp 160. but no resp distress noted, no c/o sob she says. rec repeat lasix 40mg IVP . had 40 mg IVP earlier today. evaluate sob, O2 requirements and CXR in am, daily wts - 08/24: Tolerated lasix yesterday with mild improvement in dyspnea. CXR without significant pulm edema, but there was minimal blunting of lt costophrenic angle. Will redose lasix 40 mg IV daily and then resume home lasix 20 mg PO daily for tomorrow. systolic cardiomyopathy - EF mod-sev decr'd on echo here - normal LVEF on echo here 04/2014--follows with dr kerr cardio, ? when/if LV dysfxns noted previously - no convincing acute chf here (see above disc'n) - CT chest 08/12 without pulmonary edema. - dose of IV lasix x 2 08/23 and IV lasix x 1 08/24 as mentioned. Resuming home po regimen (20 mg daily) 08/25. - con't low dose toprol as doing (previously tolerated metoprolol 100 mg bid) - titrate up toprol as outpt if no bronchospasm suspected--defer to dr kerr - ARB held here sec to hyperkalemia. Will resume low dose losartan 08/25 ( previously on 100 mg/day) htn: - resuming losartan as mentioned. con't metoprolol. Holding home norvasc. observe trend hld: -cont home statin atypical chest pain, cad s/p remote mi/pci: -no signs acs, ce's neg x2. cp on initial eval seemed related to msk/pna, not suggestive of cardiac etiology -cont home statin, arb, plavix. adding back bb - Systolic dysfunction. Will need f/u with dr kerr (cardio) for further outpatient work up if this is a new finding. mr, tr, ar, as: -moderate on prior echo, no signs of chf - stable on repeat echo h/o AAA endovasc repair: -outpt monitoring/followup (cirilo). 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
[2016-08-24] MEDS ORDERED: FUROSEMIDE 40 MG/4 ML INJECTABLE VIAL IVPUSH ONE (13:55)
[2016-08-24] MEDS ORDERED: ALBUTEROL SO4 2.5/IPRATROPIUM 0.5 INH SOL 3 ML VIAL.NEB. NEB ONE (20:13)
[2016-08-24] MEDS ORDERED: ACETAMINOPHEN 1000 MG/100 ML VIAL (NON FORMULARY) IVPB ONE (20:24)
[2016-08-24] MEDS ORDERED: ACETAMINOPHEN 1000 MG/100 ML VIAL (NON FORMULARY) IVPB PRN (20:33)
--- NOTE | 2016-08-24 20:37 | HOSP ---
Subjective - Review of Symptoms General: Yes: Malaise Pulmonary: Yes: Dyspnea Musculoskeletal: Yes: Extremity Pain Neurological: Yes: Weakness Physical Examination Vital Signs: Vital Signs Temperature 97.5 F L 08/24/16 15:10 Pulse Rate 65 08/24/16 15:10 Respiratory Rate 20 08/24/16 15:10 Blood Pressure 132/81 08/24/16 15:10 O2 Sat by Pulse Oximetry (%) 96 08/24/16 11:55 Constitutional: Yes: Anxious, Mild Distress Neck: Yes: WNL Cardiovascular: Yes: Regular Rate and Rhythm, Murmur, S1, S2 Respiratory: Yes: Diminished, SOB, SOB on Exertion, Tachypnea Gastrointestinal: Yes: Normal Bowel Sounds, Soft, Abdomen, Obese, Distention Edema: LLE: Trace, RLE: Trace Peripheral Pulses WNL: Yes Neurological: Yes: Alert, Oriented Psychiatric: Yes: Alert, Oriented Labs: CBC, BMP 08/24/16 06:35 08/24/16 06:35 Hospitalist Encounter Assessment: Was called to assess 76 year old male with pmh of Aneurysm, CAD, HTN, Hyperlipdemia, IN, COPD, O2 Dependent, Renal Insufficiency admitted for acute on chronic respiratory failure and pneumonia. Pt looks weak and tired and complained of shortness of breath and lower ext pain. Pt has just finished eating where he was coughing and choking and now pt is more short of breath and tired than before. Pt is tachypneic but is not using accessory muscle and still has an O2 sat 92% on venti-mask. Pt has this episode of weakness, lethargy in the past especially after eating. Impression Worsening respiratory failure Aspiration pneumonia Fever r/o sepsis Plan BMP CBC MG Blood culture urine culture UA Lactic acid ABG CXR Swallow eval NPO rectal temp IV acetaminophen Duoneb inform ID on the case Dr Ferris covering attending physician made aware, and will follow all labs, imaging and continue the care for the patient Visit type - Emergency Visit Emergency Visit: Yes ED Registration Date: 08/12/16 Care time: The patient presented to the Emergency Department on the above date and was hospitalized for further evaluation of their emergent condition. - New Patient This patient is new to me today: Yes Date on this admission: 08/24/16 - Critical Care Critical Care patient: No
[2016-08-24 20:44] LABS: ARTERIAL BLD GAS O2 SATURATION 96.8 % (90-98.9); ARTERIAL BLOOD GAS BASE EXCESS 8.4 meq/l (-2-2); ARTERIAL BLOOD GAS HCO3 34.7 meq/L (22-26); ARTERIAL BLOOD GAS PO2 85.9 mmHg (70-100)
[2016-08-24 20:45] LABS: ALLENS TEST POSITIVE
[2016-08-24 20:46] LABS: ART PUNCT SITE RIGHT RADIAL; LPM/O2% 50%; PT. ON O2? YES; TYPE OF O2 VENTIMASK
[2016-08-24 21:14] LABS: MCH 27.7 pg (25.7-33.7); MCHC 31.3 g/dl (32.0-35.9); MEAN CELL VOLUME 88.4 fl (80-96); MEAN PLT VOLUME 8.2 fl (7.5-11.1); PLATELET COUNT 315 K/MM3 (134-434); RDW 15.3 % (11.9-15.9); WHITE BLOOD COUNT 13.1 K/mm3 (4.0-10.0)
[2016-08-24] MEDS: ATORVASTATIN CA 20 MG TABLET (FP) PO SCH (22:00)
[2016-08-24 22:04] LABS: CALCIUM 8.9 mg/dL (8.5-10.1); MAGNESIUM 1.7 mg/dL (1.8-2.4)
[2016-08-24 22:05] LABS: COCKROFT - GAULT 63.85; CREATININE 1.2 mg/dL (0.7-1.3)
--- NOTE | 2016-08-24 23:17 | PN ---
Progress Note, Physician History of Present Illness: patient now on continuous ventimask more congestion noted probably patient aspirating - Current Medication List Current Medications: Active Medications Acetaminophen (Tylenol -) 650 mg PO Q4H PRN PRN Reason: FEVER OR PAIN Acetaminophen (Ofirmev Injection -) 1,000 mg IVPB Q6H PRN PRN Reason: FEVER OR PAIN Stop: 08/25/16 14:34 Acetylcysteine (Mucomyst 20 Oral / Inh Use Only*) 200 mg NEB BID [facility] Last Admin: 08/24/16 11:10 Dose: 200 mg Albuterol Sulfate (Ventolin 0.083% Nebulizer Soln -) 1 amp NEB Q4H PRN PRN Reason: SHORT OF BREATH/WHEEZING Last Admin: 08/23/16 07:10 Dose: 1 amp Albuterol/Ipratropium (Duoneb -) 1 amp NEB QIDR [facility] Last Admin: 08/24/16 23:15 Dose: 1 amp Alprazolam (Xanax -) 0.25 mg PO BID PRN PRN Reason: ANXIETY Last Admin: 08/23/16 21:22 Dose: 0.25 mg Atorvastatin Calcium (Lipitor -) 20 mg PO HS [facility] Last Admin: 08/24/16 22:00 Dose: Not Given Cholecalciferol (Vitamin D3 -) 1,000 unit PO DAILY [facility] Last Admin: 08/24/16 09:43 Dose: 1,000 unit Clopidogrel Bisulfate (Plavix -) 75 mg PO DAILY [facility] Last Admin: 08/24/16 09:43 Dose: 75 mg Enoxaparin Sodium (Lovenox -) 40 mg SQ DAILY [facility] Last Admin: 08/24/16 09:42 Dose: 40 mg Furosemide (Lasix -) 20 mg PO DAILY [facility] Guaifenesin (Mucinex -) 1,200 mg PO BID [facility] Last Admin: 08/24/16 22:00 Dose: Not Given Piperacillin Sod/Tazobactam Sod (Zosyn 3.375gm Ivpb (Pre-Docked)) 50 mls @ 100 mls/hr IVPB Q8H-IV [facility] PRN Reason: Protocol Last Admin: 08/24/16 17:04 Dose: 100 mls/hr Insulin Aspart (Novolog Vial Sliding Scale -) 0 vial SQ ACHS [facility] PRN Reason: Protocol Last Admin: 08/24/16 22:00 Dose: 3 units Losartan Potassium (Cozaar -) 25 mg PO DAILY [facility] Metformin HCl (Glucophage -) 1,000 mg PO BIDAC [facility] Last Admin: 08/24/16 16:55 Dose: 1,000 mg Metoprolol Succinate (Toprol Xl -) 25 mg PO DAILY [facility] Last Admin: 08/24/16 09:43 Dose: 25 mg Nystatin (Nystatin Oral Suspension -) 500,000 units PO Q6HPO [facility] Last Admin: 08/24/16 23:05 Dose: Not Given Nystatin (Mycostatin Cream -) 1 applic TP BID [facility] Last Admin: 08/24/16 22:00 Dose: 1 applic Prednisone (Deltasone -) 30 mg PO DAILY [facility] - Objective Vital Signs: Vital Signs Temperature 98.2 F 08/24/16 18:35 Pulse Rate 81 08/24/16 18:35 Respiratory Rate 20 08/24/16 18:35 Blood Pressure 152/87 08/24/16 18:35 O2 Sat by Pulse Oximetry (%) 96 08/24/16 11:55 Constitutional: Yes: Calm, Mild Distress Cardiovascular: Yes: S1, S2 Respiratory: Yes: On Venti-Mask, Poor Air Entry, Rhonchi Gastrointestinal: Yes: Normal Bowel Sounds, Soft Musculoskeletal: Yes: WNL Extremities: Yes: WNL Neurological: Yes: Alert, Oriented Psychiatric: Yes: Alert, Oriented Labs: CBC, BMP 08/24/16 21:10 08/24/16 21:10 INR, PTT INR 1.19 (0.82-1.09) H 08/12/16 14:11 Assessment/Plan Problem List - Problems (1) Acute and chronic respiratory failure Code(s): J96.20 - ACUTE AND CHR RESP FAILURE, UNSP W HYPOXIA OR HYPERCAPNIA Qualifiers: Respiratory failure complication: hypoxia Qualified Code(s): J96.21 - Acute and chronic respiratory failure with hypoxia (2) Pneumonia Code(s): J18.9 - PNEUMONIA, UNSPECIFIED ORGANISM (3) Chest pain Code(s): R07.9 - CHEST PAIN, UNSPECIFIED (4) Chronic diastolic (congestive) heart failure Code(s): I50.32 - CHRONIC DIASTOLIC (CONGESTIVE) HEART FAILURE (5) COPD (chronic obstructive pulmonary disease) Code(s): J44.9 - CHRONIC OBSTRUCTIVE PULMONARY DISEASE, UNSPECIFIED Qualifiers : COPD type: COPD with acute exacerbation Qualified Code(s): J44.1 - Chronic obstructive pulmonary disease with (acute) exacerbation (6) HTN (hypertension) Code(s): I10 - ESSENTIAL (PRIMARY) HYPERTENSION (7) HLD (hyperlipidemia) Code(s): E78.5 - HYPERLIPIDEMIA, UNSPECIFIED (8) Diabetes Code(s): E11.9 - TYPE 2 DIABETES MELLITUS WITHOUT COMPLICATIONS Qualifiers: Diabetes mellitus type: type 2 patient now needing resp support plan continue abx patient now has superimposed aspiration pna incentive eddie rest as per primary
[2016-08-25] MEDS: PIPERACILLIN/TAZOB 3.375 GM 50 ML IVPB SCH ×3 (02:55→17:42)
[2016-08-25] MEDS: NYSTATIN 500,000 UNITS/5 ML SUSPENSION PO SCH ×2 (05:32→13:24)
[2016-08-25] MEDS: ALBUTEROL SO4 2.5/IPRATROPIUM 0.5 INH SOL 3 ML VIAL.NEB. NEB SCH ×3 (05:48→18:00)
[2016-08-25] MEDS: metFORMIN HCL 500 MG TABLET (FP) PO SCH ×2 (06:03→17:49)
[2016-08-25] MEDS: INSULIN SLIDING SCALE (NOVOLOG) 1 VIAL SQ SCH ×4 (06:04→22:10)
[2016-08-25 06:41] LABS: BASOPHIL 0.2 % (0-2.0); EOSINOPHIL 0.7 % (0-4.5); MCH 28.9 pg (25.7-33.7); MCHC 32.4 g/dl (32.0-35.9); MEAN CELL VOLUME 89.1 fl (80-96); MEAN PLT VOLUME 8.2 fl (7.5-11.1); NEUTROPHILS 84.9 % (42.8-82.8); PLATELET COUNT 290 K/MM3 (134-434); RDW 14.8 % (11.9-15.9); WHITE BLOOD COUNT 14.5 K/mm3 (4.0-10.0)
[2016-08-25] MEDS: ALBUTEROL SO4 0.083% IH SOL 2.5 MG/3 ML VIAL.NEB. NEB PRN ×2 (07:02→22:20)
[2016-08-25 07:20] LABS: CALCIUM 8.9 mg/dL (8.5-10.1); MAGNESIUM 1.8 mg/dL (1.8-2.4)
[2016-08-25 07:22] LABS: COCKROFT - GAULT 76.62; PHOSPHOROUS 3.5 mg/dL (2.5-4.9)
[2016-08-25] MEDS: LOSARTAN POTASSIUM 25 MG TABLET PO SCH (10:02)
[2016-08-25] MEDS: FUROSEMIDE 20 MG TABLET (FP) PO SCH (10:03)
[2016-08-25] MEDS: guaiFENesin 600 MG TABLET.ER (FP) PO SCH ×2 (10:03→22:10)
[2016-08-25] MEDS: ENOXAPARIN NA (PORCINE) 40 MG/0.4 ML DISP.SYRIN SQ SCH (10:03)
[2016-08-25] MEDS: predniSONE 20 MG TABLET (UD) PO SCH (10:03)
[2016-08-25] MEDS: NYSTATIN 100,000 UNIT/GM TOPICAL CREAM 15 GM TUBE TP SCH ×2 (10:04→22:10)
[2016-08-25] MEDS: METOPROLOL SUCCINATE 25 MG TAB.SR.24H (FP) PO SCH (10:04)
[2016-08-25] MEDS: CHOLECALCIFEROL (VITAMIN D3) 1,000 UNIT TABLET (FP) PO SCH (10:04)
[2016-08-25] MEDS: CLOPIDOGREL BISULFATE 75 MG TABLET (FP) PO SCH (10:04)
--- NOTE | 2016-08-25 10:24 | PN ---
Progress Note (short form) - Note Progress Note: Chief Complaint: sob/cp, edema History of Present Illness: no cp palps dizzy; sob improved Current Medications Generic Name Dose Route Start Last Admin Trade Name Freq PRN Reason Stop Dose Admin Acetaminophen 650 mg 08/12/16 16:30 Tylenol - PO Q4H PRN FEVER OR PAIN Acetaminophen 1,000 mg 08/24/16 20:33 Ofirmev Injection - IVPB 08/25/16 14:34 Q6H PRN FEVER OR PAIN Acetylcysteine 200 mg 08/23/16 22:00 08/24/16 11:10 Mucomyst 20 Oral / Inh Use Only* NEB 200 mg BID EDVIN Administration Albuterol Sulfate 1 amp 08/22/16 07:01 08/25/16 07:02 Ventolin 0.083% Nebulizer Soln - NEB 1 amp Q4H PRN Administration SHORT OF BREATH/WHEEZING Albuterol/Ipratropium 1 amp 08/22/16 18:00 08/25/16 05:48 Duoneb - NEB 1 amp QIDR EDVIN Administration Alprazolam 0.25 mg 08/23/16 10:27 08/23/16 21:22 Xanax - PO 0.25 mg BID PRN Administration ANXIETY Atorvastatin Calcium 20 mg 08/12/16 22:00 08/24/16 22:00 Lipitor - PO Not Given HS EDVIN Cholecalciferol 1,000 unit 08/13/16 10:00 08/25/16 10:04 Vitamin D3 - PO 1,000 unit DAILY ED[facility] Administration Clopidogrel Bisulfate 75 mg 08/13/16 10:00 08/25/16 10:04 Plavix - PO 75 mg DAILY [facility]IN Administration Enoxaparin Sodium 40 mg 08/13/16 10:00 08/25/16 10:03 Lovenox - SQ 40 mg DAILY [facility] Administration Furosemide 20 mg 08/25/16 10:00 08/25/16 10:03 Lasix - PO 20 mg DAILY EDVIN Administration Guaifenesin 1,200 mg 08/23/16 10:30 08/25/16 10:03 Mucinex - PO 1,200 mg BID EDVIN Administration Piperacillin Sod/Tazobactam Sod 50 mls @ 100 mls/hr 08/19/16 19:15 08/25/16 10: 04 Zosyn 3.375gm Ivpb (Pre-Docked) IVPB 100 mls/hr Q8H-IV EDVIN Administration Protocol Insulin Aspart 0 vial 08/12/16 16:30 08/25/16 06:04 Novolog Vial Sliding Scale - SQ Not Given ACHS EDVIN Protocol Losartan Potassium 25 mg 08/25/16 10:00 08/25/16 10:02 Cozaar - PO 25 mg DAILY EDVIN Administration Metformin HCl 1,000 mg 08/12/16 16:30 08/25/16 06:03 Glucophage - PO Not Given BIDAC EDVIN Metoprolol Succinate 25 mg 08/17/16 12:45 08/25/16 10:04 Toprol Xl - PO 25 mg DAILY EDVIN Administration Nystatin 500,000 units 08/17/16 18:00 08/25/16 05:32 Nystatin Oral Suspension - PO Not Given Q6HPO ED[facility] Nystatin 1 applic 08/22/16 22:00 08/25/16 10:04 Mycostatin Cream - TP 1 applic BID [facility] Administration Prednisone 30 mg 08/25/16 10:00 08/25/16 10:03 Deltasone - PO 30 mg DAILY EDVIN Administration Vital Signs Period Temp Pulse Resp BP Sys/Lopez Pulse Ox Last 24 Hr 97.5 F-99.6 F 65-113 20-20 132-171/81-95 96-96 Constitutional: Yes: Well Nourished, Calm Cardiovascular: Yes: Regular Rate and Rhythm (soft sounds), S1, S2. No: Gallop , Murmur Respiratory: Yes: scattered rhonchi, nl eff. No: Accessory Muscle Use, Rales, Wheezes Extremities: No: Cold Edema: trace le edema bl Neurological: Yes: Alert, Oriented Psychiatric: No: Agitated no jaundice diaphoresis Labs: CBC, BMP 08/25/16 05:35 08/25/16 05:35 ecg 08/12/16: sr, old rbbb cta chest: no pe, no chf, +left infiltrates echo 04/2014: nl lv, rv tds, mod brian, mod mr, mod tr, rvsp 40-50, mild-mod , mod ar, ao root mild dilatation echo report reviewed: 08/13/16: mod-sev dec LV fn. apical inferior wall AK, mod global HK. NL rv. mod -sev ar. MIld-mod MR, mod TR. RVSP 50-60. bline ao dilation. a/p: 76 m hx htn, copd on home 02, hld, dm, cad s/p remote mi/pci, remote aortic graft endo repair, atrophic left kidney here with sob. pna, copd, sob, acute hypoxiac resp failure: -completed course of abx and has been on steroids but then worse hypoxia and repeat cxr showed new pna, now back on iv abx -also with trace effusions (blunted angles) on cxr since 08/19, not previously present on initial CXR -08/23 BNP 25K, up from 4900.per RN phone call, pt seems very tired, moreso than usual, bp 160. but no resp distress noted, no c/o sob she says. rec repeat lasix 40mg IVP . had 40 mg IVP earlier today. evaluate sob, O2 requirements and CXR in am, daily wts - 08/24: Tolerated lasix yesterday with mild improvement in dyspnea. CXR without significant pulm edema, but there was minimal blunting of lt costophrenic angle. Will redose lasix 40 mg IV daily and then resume home lasix 20 mg PO daily for tomorrow. -08/25: cont po lasix systolic cardiomyopathy - EF mod-sev decr'd on echo here - normal LVEF on echo here 04/2014--follows with dr kerr cardio, ? when/if LV dysfxns noted previously - no convincing acute chf here (see above disc'n) - CT chest 08/12 without pulmonary edema. - dose of IV lasix x 2 08/23 and IV lasix x 1 08/24 as mentioned. Resuming home po regimen (20 mg daily) 08/25. - con't low dose toprol as doing (previously tolerated metoprolol 100 mg bid) - titrate up toprol as outpt if no bronchospasm suspected--defer to dr kerr - ARB held here sec to hyperkalemia. Will resume low dose losartan 08/25 ( previously on 100 mg/day) htn: - resuming losartan as mentioned. con't metoprolol. Holding home norvasc. observe trend hld: -cont home statin atypical chest pain, cad s/p remote mi/pci: -no signs acs, ce's neg x2. cp on initial eval seemed related to msk/pna, not suggestive of cardiac etiology -cont home statin, arb, plavix. adding back bb - Systolic dysfunction. Will need f/u with dr kerr (cardio) for further outpatient work up if this is a new finding. mr, tr, ar, as: -moderate on prior echo, no signs of chf - stable on repeat echo h/o AAA endovasc repair: -outpt monitoring/followup (cirilo). 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
--- NOTE | 2016-08-25 11:04 | PN ---
Progress Note, RECEPTIONIST NURSE - Note Progress Note: No further f/u indicated. I will sign off for now. Thank you for the initial referral.
--- NOTE | 2016-08-25 12:32 | PN ---
Progress Note, Physician History of Present Illness: resp supprt cardiology managing still on ventimask work up done for aspiration - Current Medication List Current Medications: Active Medications Acetaminophen (Tylenol -) 650 mg PO Q4H PRN PRN Reason: FEVER OR PAIN Acetaminophen (Ofirmev Injection -) 1,000 mg IVPB Q6H PRN PRN Reason: FEVER OR PAIN Stop: 08/25/16 14:34 Acetylcysteine (Mucomyst 20 Oral / Inh Use Only*) 200 mg NEB BID [facility] Last Admin: 08/24/16 11:10 Dose: 200 mg Albuterol Sulfate (Ventolin 0.083% Nebulizer Soln -) 1 amp NEB Q4H PRN PRN Reason: SHORT OF BREATH/WHEEZING Last Admin: 08/25/16 07:02 Dose: 1 amp Albuterol/Ipratropium (Duoneb -) 1 amp NEB QIDR [facility] Last Admin: 08/25/16 05:48 Dose: 1 amp Alprazolam (Xanax -) 0.25 mg PO BID PRN PRN Reason: ANXIETY Last Admin: 08/23/16 21:22 Dose: 0.25 mg Atorvastatin Calcium (Lipitor -) 20 mg PO HS [facility] Last Admin: 08/24/16 22:00 Dose: Not Given Cholecalciferol (Vitamin D3 -) 1,000 unit PO DAILY [facility] Last Admin: 08/25/16 10:04 Dose: 1,000 unit Clopidogrel Bisulfate (Plavix -) 75 mg PO DAILY [facility] Last Admin: 08/25/16 10:04 Dose: 75 mg Enoxaparin Sodium (Lovenox -) 40 mg SQ DAILY [facility] Last Admin: 08/25/16 10:03 Dose: 40 mg Furosemide (Lasix -) 20 mg PO DAILY [facility] Last Admin: 08/25/16 10:03 Dose: 20 mg Guaifenesin (Mucinex -) 1,200 mg PO BID [facility] Last Admin: 08/25/16 10:03 Dose: 1,200 mg Piperacillin Sod/Tazobactam Sod (Zosyn 3.375gm Ivpb (Pre-Docked)) 50 mls @ 100 mls/hr IVPB Q8H-IV [facility] PRN Reason: Protocol Last Admin: 08/25/16 10:04 Dose: 100 mls/hr Insulin Aspart (Novolog Vial Sliding Scale -) 0 vial SQ ACHS [facility] PRN Reason: Protocol Last Admin: 08/25/16 06:04 Dose: Not Given Losartan Potassium (Cozaar -) 25 mg PO DAILY [facility] Last Admin: 08/25/16 10:02 Dose: 25 mg Metformin HCl (Glucophage -) 1,000 mg PO BIDAC [facility] Last Admin: 08/25/16 06:03 Dose: Not Given Metoprolol Succinate (Toprol Xl -) 25 mg PO DAILY [facility] Last Admin: 08/25/16 10:04 Dose: 25 mg Nystatin (Nystatin Oral Suspension -) 500,000 units PO Q6HPO [facility] Last Admin: 08/25/16 05:32 Dose: Not Given Nystatin (Mycostatin Cream -) 1 applic TP BID [facility] Last Admin: 08/25/16 10:04 Dose: 1 applic Prednisone (Deltasone -) 30 mg PO DAILY [facility] Last Admin: 08/25/16 10:03 Dose: 30 mg - Objective Vital Signs: Vital Signs Temperature 99.6 F 08/25/16 10:01 Pulse Rate 112 H 08/25/16 10:01 Respiratory Rate 20 08/25/16 10:01 Blood Pressure 171/83 08/25/16 10:01 O2 Sat by Pulse Oximetry (%) 96 08/25/16 01:33 Constitutional: Yes: Calm, Mild Distress Cardiovascular: Yes: S1, S2 Respiratory: Yes: Poor Air Entry, Rhonchi Gastrointestinal: Yes: Normal Bowel Sounds, Soft Musculoskeletal: Yes: WNL Extremities: Yes: WNL Neurological: Yes: Alert, Oriented Psychiatric: Yes: Alert, Oriented Labs: CBC, BMP 08/25/16 05:35 08/25/16 05:35 INR, PTT INR 1.19 (0.82-1.09) H 08/12/16 14:11 Assessment/Plan Problem List - Problems (1) Acute and chronic respiratory failure Code(s): J96.20 - ACUTE AND CHR RESP FAILURE, UNSP W HYPOXIA OR HYPERCAPNIA Qualifiers: Respiratory failure complication: hypoxia Qualified Code(s): J96.21 - Acute and chronic respiratory failure with hypoxia (2) Pneumonia Code(s): J18.9 - PNEUMONIA, UNSPECIFIED ORGANISM (3) Chest pain Code(s): R07.9 - CHEST PAIN, UNSPECIFIED (4) Chronic diastolic (congestive) heart failure Code(s): I50.32 - CHRONIC DIASTOLIC (CONGESTIVE) HEART FAILURE (5) COPD (chronic obstructive pulmonary disease) Code(s): J44.9 - CHRONIC OBSTRUCTIVE PULMONARY DISEASE, UNSPECIFIED Qualifiers : COPD type: COPD with acute exacerbation Qualified Code(s): J44.1 - Chronic obstructive pulmonary disease with (acute) exacerbation (6) HTN (hypertension) Code(s): I10 - ESSENTIAL (PRIMARY) HYPERTENSION (7) HLD (hyperlipidemia) Code(s): E78.5 - HYPERLIPIDEMIA, UNSPECIFIED (8) Diabetes Code(s): E11.9 - TYPE 2 DIABETES MELLITUS WITHOUT COMPLICATIONS Qualifiers: Diabetes mellitus type: type 2 patient now needing resp support plan continue abx continue current mgmt aspiration precaautions rest as per primary
--- NOTE | 2016-08-25 12:58 | PN ---
Progress Note, Physician History of Present Illness: pulmonary feeling better,less dyspneic,+cough - Current Medication List Current Medications: Active Medications Acetaminophen (Tylenol -) 650 mg PO Q4H PRN PRN Reason: FEVER OR PAIN Acetaminophen (Ofirmev Injection -) 1,000 mg IVPB Q6H PRN PRN Reason: FEVER OR PAIN Stop: 08/25/16 14:34 Acetylcysteine (Mucomyst 20 Oral / Inh Use Only*) 200 mg NEB BID [facility] Last Admin: 08/24/16 11:10 Dose: 200 mg Albuterol Sulfate (Ventolin 0.083% Nebulizer Soln -) 1 amp NEB Q4H PRN PRN Reason: SHORT OF BREATH/WHEEZING Last Admin: 08/25/16 07:02 Dose: 1 amp Albuterol/Ipratropium (Duoneb -) 1 amp NEB QIDR [facility] Last Admin: 08/25/16 05:48 Dose: 1 amp Alprazolam (Xanax -) 0.25 mg PO BID PRN PRN Reason: ANXIETY Last Admin: 08/23/16 21:22 Dose: 0.25 mg Atorvastatin Calcium (Lipitor -) 20 mg PO HS [facility] Last Admin: 08/24/16 22:00 Dose: Not Given Cholecalciferol (Vitamin D3 -) 1,000 unit PO DAILY [facility] Last Admin: 08/25/16 10:04 Dose: 1,000 unit Clopidogrel Bisulfate (Plavix -) 75 mg PO DAILY [facility] Last Admin: 08/25/16 10:04 Dose: 75 mg Enoxaparin Sodium (Lovenox -) 40 mg SQ DAILY [facility] Last Admin: 08/25/16 10:03 Dose: 40 mg Furosemide (Lasix -) 20 mg PO DAILY [facility] Last Admin: 08/25/16 10:03 Dose: 20 mg Guaifenesin (Mucinex -) 1,200 mg PO BID [facility] Last Admin: 08/25/16 10:03 Dose: 1,200 mg Piperacillin Sod/Tazobactam Sod (Zosyn 3.375gm Ivpb (Pre-Docked)) 50 mls @ 100 mls/hr IVPB Q8H-IV [facility] PRN Reason: Protocol Last Admin: 08/25/16 10:04 Dose: 100 mls/hr Insulin Aspart (Novolog Vial Sliding Scale -) 0 vial SQ ACHS [facility] PRN Reason: Protocol Last Admin: 08/25/16 06:04 Dose: Not Given Losartan Potassium (Cozaar -) 25 mg PO DAILY [facility] Last Admin: 08/25/16 10:02 Dose: 25 mg Metformin HCl (Glucophage -) 1,000 mg PO BIDAC [facility] Last Admin: 08/25/16 06:03 Dose: Not Given Metoprolol Succinate (Toprol Xl -) 25 mg PO DAILY [facility] Last Admin: 08/25/16 10:04 Dose: 25 mg Nystatin (Nystatin Oral Suspension -) 500,000 units PO Q6HPO [facility] Last Admin: 08/25/16 05:32 Dose: Not Given Nystatin (Mycostatin Cream -) 1 applic TP BID [facility] Last Admin: 08/25/16 10:04 Dose: 1 applic Prednisone (Deltasone -) 30 mg PO DAILY [facility] Last Admin: 08/25/16 10:03 Dose: 30 mg - Objective Vital Signs: Vital Signs Temperature 99.6 F 08/25/16 10:01 Pulse Rate 112 H 08/25/16 10:01 Respiratory Rate 20 08/25/16 10:01 Blood Pressure 171/83 08/25/16 10:01 O2 Sat by Pulse Oximetry (%) 96 08/25/16 01:33 Constitutional: Yes: Well Nourished, Calm Eyes: Yes: WNL HENT: Yes: WNL Neck: Yes: WNL Cardiovascular: Yes: Regular Rate and Rhythm, S1, S2 Respiratory: Yes: Rhonchi (few scattered matteo rhonchi) Gastrointestinal: Yes: Normal Bowel Sounds, Soft Extremities: Yes: WNL Edema: No Labs: CBC, BMP 08/25/16 05:35 08/25/16 05:35 INR, PTT INR 1.19 (0.82-1.09) H 08/12/16 14:11 Problem List - Problems (1) Acute and chronic respiratory failure Code(s): J96.20 - ACUTE AND CHR RESP FAILURE, UNSP W HYPOXIA OR HYPERCAPNIA Qualifiers: Respiratory failure complication: hypoxia Qualified Code(s): J96.21 - Acute and chronic respiratory failure with hypoxia Assessment/Plan Problem List - Problems (1) Chest pain Code(s): R07.9 - CHEST PAIN, UNSPECIFIED (2) COPD (chronic obstructive pulmonary disease) Code(s): J44.9 - CHRONIC OBSTRUCTIVE PULMONARY DISEASE, UNSPECIFIED (3) Chronic respiratory failure with hypoxia Code(s): J96.11 - CHRONIC RESPIRATORY FAILURE WITH HYPOXIA (4) Elevated liver enzymes Code(s): R74.8 - ABNORMAL LEVELS OF OTHER SERUM ENZYMES (5) Chronic diastolic (congestive) heart failure Code(s): I50.32 - CHRONIC DIASTOLIC (CONGESTIVE) HEART FAILURE (6) Pulmonary hypertension Code(s): I27.2 - OTHER SECONDARY PULMONARY HYPERTENSION Assessment/Plan Chest Pain Acute on chronic hypoxemic respiratory failure Pneumonia Severe COPD Emphysema LV Diastolic Dysfunction Pulmonary HTN - inhaled bronchodilators - O2 to keep SPo2 >90% - DVT prophylaxis - steroid taper - antibiotics as per ID - mucomyst - chest pt - chest x-ray am DR LOUISE
--- NOTE | 2016-08-25 14:04 | PN ---
Progress Note, Physician Chief Complaint: Mr Varma says his breathing is much better today. No cp or n/v. RN says patient still becomes hypoxic when he takes off his oxygen - Current Medication List Current Medications: Active Medications Acetaminophen (Tylenol -) 650 mg PO Q4H PRN PRN Reason: FEVER OR PAIN Acetaminophen (Ofirmev Injection -) 1,000 mg IVPB Q6H PRN PRN Reason: FEVER OR PAIN Stop: 08/25/16 14:34 Acetylcysteine (Mucomyst 20 Oral / Inh Use Only*) 200 mg NEB BID [facility] Last Admin: 08/24/16 11:10 Dose: 200 mg Albuterol Sulfate (Ventolin 0.083% Nebulizer Soln -) 1 amp NEB Q4H PRN PRN Reason: SHORT OF BREATH/WHEEZING Last Admin: 08/25/16 07:02 Dose: 1 amp Albuterol/Ipratropium (Duoneb -) 1 amp NEB QIDR [facility] Last Admin: 08/25/16 12:40 Dose: 1 amp Alprazolam (Xanax -) 0.25 mg PO BID PRN PRN Reason: ANXIETY Last Admin: 08/23/16 21:22 Dose: 0.25 mg Atorvastatin Calcium (Lipitor -) 20 mg PO HS [facility] Last Admin: 08/24/16 22:00 Dose: Not Given Cholecalciferol (Vitamin D3 -) 1,000 unit PO DAILY [facility] Last Admin: 08/25/16 10:04 Dose: 1,000 unit Clopidogrel Bisulfate (Plavix -) 75 mg PO DAILY [facility] Last Admin: 08/25/16 10:04 Dose: 75 mg Enoxaparin Sodium (Lovenox -) 40 mg SQ DAILY [facility] Last Admin: 08/25/16 10:03 Dose: 40 mg Furosemide (Lasix -) 20 mg PO DAILY [facility] Last Admin: 08/25/16 10:03 Dose: 20 mg Guaifenesin (Mucinex -) 1,200 mg PO BID [facility] Last Admin: 08/25/16 10:03 Dose: 1,200 mg Piperacillin Sod/Tazobactam Sod (Zosyn 3.375gm Ivpb (Pre-Docked)) 50 mls @ 100 mls/hr IVPB Q8H-IV [facility] PRN Reason: Protocol Last Admin: 08/25/16 10:04 Dose: 100 mls/hr Insulin Aspart (Novolog Vial Sliding Scale -) 0 vial SQ ACHS [facility] PRN Reason: Protocol Last Admin: 08/25/16 13:24 Dose: Not Given Losartan Potassium (Cozaar -) 25 mg PO DAILY [facility] Last Admin: 08/25/16 10:02 Dose: 25 mg Metformin HCl (Glucophage -) 1,000 mg PO BIDAC [facility] Last Admin: 08/25/16 06:03 Dose: Not Given Metoprolol Succinate (Toprol Xl -) 25 mg PO DAILY [facility] Last Admin: 08/25/16 10:04 Dose: 25 mg Nystatin (Nystatin Oral Suspension -) 500,000 units PO Q6HPO [facility] Last Admin: 08/25/16 13:24 Dose: Not Given Nystatin (Mycostatin Cream -) 1 applic TP BID [facility] Last Admin: 08/25/16 10:04 Dose: 1 applic Prednisone (Deltasone -) 30 mg PO DAILY [facility] Last Admin: 08/25/16 10:03 Dose: 30 mg - Objective Vital Signs: Vital Signs Temperature 99.6 F 08/25/16 10:01 Pulse Rate 87 08/25/16 11:45 Respiratory Rate 20 08/25/16 10:01 Blood Pressure 171/83 08/25/16 10:01 O2 Sat by Pulse Oximetry (%) 96 08/25/16 11:45 Constitutional: Yes: Well Nourished, No Distress, Calm Cardiovascular: Yes: Regular Rate and Rhythm. No: Gallop, Murmur, Rub Respiratory: Yes: Regular, CTA Bilaterally, On Nasal O2. No: Rales, Rhonchi, Wheezes Gastrointestinal: Yes: Normal Bowel Sounds, Soft. No: Distention, Tenderness Extremities: Yes: WNL Edema: No Labs: CBC, BMP 08/25/16 05:35 08/25/16 05:35 INR, PTT INR 1.19 (0.82-1.09) H 08/12/16 14:11 Problem List - Problems (1) Acute and chronic respiratory failure Code(s): J96.20 - ACUTE AND CHR RESP FAILURE, UNSP W HYPOXIA OR HYPERCAPNIA Qualifiers: Respiratory failure complication: hypoxia Qualified Code(s): J96.21 - Acute and chronic respiratory failure with hypoxia (2) Pneumonia Code(s): J18.9 - PNEUMONIA, UNSPECIFIED ORGANISM (3) Chest pain Code(s): R07.9 - CHEST PAIN, UNSPECIFIED (4) Chronic diastolic (congestive) heart failure Code(s): I50.32 - CHRONIC DIASTOLIC (CONGESTIVE) HEART FAILURE (5) COPD (chronic obstructive pulmonary disease) Code(s): J44.9 - CHRONIC OBSTRUCTIVE PULMONARY DISEASE, UNSPECIFIED Qualifiers : COPD type: COPD with acute exacerbation Qualified Code(s): J44.1 - Chronic obstructive pulmonary disease with (acute) exacerbation (6) HTN (hypertension) Code(s): I10 - ESSENTIAL (PRIMARY) HYPERTENSION (7) HLD (hyperlipidemia) Code(s): E78.5 - HYPERLIPIDEMIA, UNSPECIFIED (8) Diabetes Code(s): E11.9 - TYPE 2 DIABETES MELLITUS WITHOUT COMPLICATIONS Qualifiers: Diabetes mellitus type: type 2 Assessment/Plan (1) Acute on chronic respiratory failure -patient appears to be improving -continue oxygen support -continue mucomyst and mucinex -weaning steroids -continue bronchodilators (2) Pneumonia Assessment/Plan: -leukocytosis improving -Dr Levy following and note reviewed -continue zosyn Code(s): J18.9 - PNEUMONIA, UNSPECIFIED ORGANISM (3) Chest pain Assessment/Plan: -resolved -pleurisy secondary to pneumonia Code(s): R07.9 - CHEST PAIN, UNSPECIFIED (4) Chronic diastolic (congestive) heart failure Assessment/Plan: -cardiology following -BNP elevated -on scheduled lasix Code(s): I50.32 - CHRONIC DIASTOLIC (CONGESTIVE) HEART FAILURE (5) COPD (chronic obstructive pulmonary disease) Assessment/Plan: -stable -pulmonary following Code(s): J44.9 - CHRONIC OBSTRUCTIVE PULMONARY DISEASE, UNSPECIFIED Qualifiers : COPD type: COPD with acute exacerbation Qualified Code(s): J44.1 - Chronic obstructive pulmonary disease with (acute) exacerbation (6) HTN (hypertension) Assessment/Plan: -continue toprol xl -cozaar restarted at lower dose -low dose lasix started Code(s): I10 - ESSENTIAL (PRIMARY) HYPERTENSION (7) HLD (hyperlipidemia) Assessment/Plan: -continue lipitor Code(s): E78.5 - HYPERLIPIDEMIA, UNSPECIFIED (8) Diabetes -continue diabetic diet -continue metformin and SSI -hyperglycemia secondary to steroids
[2016-08-25] MEDS ORDERED: INSULIN (NOVOLOG) ASPART 100 UNITS/ML 10ML VIAL ONE (18:31)
[2016-08-25] MEDS: ATORVASTATIN CA 20 MG TABLET (FP) PO SCH (22:10)
[2016-08-25] MEDS: ACETYLCYSTEINE 20% 200MG/ML 30 ML VIAL *FOR ORAL / INH USE ONLY NEB SCH (22:15)
[2016-08-25] MEDS: ALPRAZolam 0.25 MG TABLET PO PRN (23:01)
[2016-08-26] MEDS: ALBUTEROL SO4 2.5/IPRATROPIUM 0.5 INH SOL 3 ML VIAL.NEB. NEB SCH ×3 (00:30→11:30)
[2016-08-26] MEDS: PIPERACILLIN/TAZOB 3.375 GM 50 ML IVPB SCH ×2 (01:12→10:11)
[2016-08-26] MEDS: INSULIN SLIDING SCALE (NOVOLOG) 1 VIAL SQ SCH ×2 (06:01→12:55)
[2016-08-26] MEDS: metFORMIN HCL 500 MG TABLET (FP) PO SCH ×2 (06:07→11:12)
[2016-08-26 06:23] LABS: BASOPHIL 0.2 % (0-2.0); EOSINOPHIL 0.5 % (0-4.5); MCH 28.7 pg (25.7-33.7); MCHC 32.2 g/dl (32.0-35.9); MEAN CELL VOLUME 89.3 fl (80-96); MEAN PLT VOLUME 8.5 fl (7.5-11.1); PLATELET COUNT 329 K/MM3 (134-434); RDW 15.5 % (11.9-15.9); WHITE BLOOD COUNT 15.2 K/mm3 (4.0-10.0)
[2016-08-26 06:43] LABS: CALCIUM 9.1 mg/dL (8.5-10.1)
[2016-08-26 06:47] LABS: COCKROFT - GAULT 76.62; PHOSPHOROUS 3.1 mg/dL (2.5-4.9)
[2016-08-26 10:05] LABS: URINE APPEARANCE CLOUDY; URINE BILIRUBIN NEGATIVE (NEGATIVE); URINE COLOR YELLOW; URINE GLUCOSE (UA) 1+ (NEGATIVE); URINE KETONE NEGATIVE (NEGATIVE); URINE NITRITE NEGATIVE (NEGATIVE); URINE UROBILINOGEN NEGATIVE E.U./dl (0.2-1.0)
--- NOTE | 2016-08-26 10:12 | PN ---
Progress Note (short form) - Note Progress Note: Chief Complaint: sob/cp, edema History of Present Illness: lethargic today, no overnight events, no loc, no falls, still on oxygen Current Medications Generic Name Dose Route Start Last Admin Trade Name Freq PRN Reason Stop Dose Admin Acetaminophen 650 mg 08/12/16 16:30 Tylenol - PO Q4H PRN FEVER OR PAIN Acetylcysteine 200 mg 08/23/16 22:00 08/25/16 22:15 Mucomyst 20 Oral / Inh Use Only* NEB Not Given BID EDVIN Albuterol Sulfate 1 amp 08/22/16 07:01 08/25/16 22:20 Ventolin 0.083% Nebulizer Soln - NEB 1 amp Q4H PRN Administration SHORT OF BREATH/WHEEZING Albuterol/Ipratropium 1 amp 08/22/16 18:00 08/26/16 06:37 Duoneb - NEB 1 amp QIDR EDVIN Administration Alprazolam 0.25 mg 08/23/16 10:27 08/25/16 23:01 Xanax - PO 0.25 mg BID PRN Administration ANXIETY Atorvastatin Calcium 20 mg 08/12/16 22:00 08/25/16 22:10 Lipitor - PO 20 mg HS EDVIN Administration Cholecalciferol 1,000 unit 08/13/16 10:00 08/25/16 10:04 Vitamin D3 - PO 1,000 unit DAILY EDVIN Administration Clopidogrel Bisulfate 75 mg 08/13/16 10:00 08/25/16 10:04 Plavix - PO 75 mg DAILY EDVIN Administration Enoxaparin Sodium 40 mg 08/13/16 10:00 08/25/16 10:03 Lovenox - SQ 40 mg DAILY EDVIN Administration Furosemide 20 mg 08/25/16 10:00 08/25/16 10:03 Lasix - PO 20 mg DAILY EDVIN Administration Guaifenesin 1,200 mg 08/23/16 10:30 08/25/16 22:10 Mucinex - PO 1,200 mg BID EDVIN Administration Piperacillin Sod/Tazobactam Sod 50 mls @ 100 mls/hr 08/19/16 19:15 08/26/16 01: 12 Zosyn 3.375gm Ivpb (Pre-Docked) IVPB 100 mls/hr Q8H-IV EDVIN Administration Protocol Insulin Aspart 0 vial 08/12/16 16:30 08/26/16 06:01 Novolog Vial Sliding Scale - SQ Not Given ACHS [facility] Protocol Losartan Potassium 25 mg 08/25/16 10:00 08/25/16 10:02 Cozaar - PO 25 mg DAILY EDVIN Administration Metformin HCl 1,000 mg 08/12/16 16:30 08/26/16 06:07 Glucophage - PO Not Given BIDAC EDVIN Metoprolol Succinate 25 mg 08/17/16 12:45 08/25/16 10:04 Toprol Xl - PO 25 mg DAILY EDVIN Administration Nystatin 1 applic 08/22/16 22:00 08/25/16 22:10 Mycostatin Cream - TP 1 applic BID EDVIN Administration Prednisone 30 mg 08/25/16 10:00 08/25/16 10:03 Deltasone - PO 30 mg DAILY EDVIN Administration Vital Signs Period Temp Pulse Resp BP Sys/Lopez Pulse Ox Last 24 Hr 98 F-98.6 F 73-107 18-20 111-154/70-91 96-96 Constitutional: Yes: Well Nourished, Calm Cardiovascular: Yes: Regular Rate and Rhythm (soft sounds), S1, S2. No: Gallop , Murmur Respiratory: Yes: scattered rhonchi, poor effort. No: Accessory Muscle Use, Rales, Wheezes Extremities: No: Cold Edema: trace le edema bl Neurological: Yes: lethargic Psychiatric: No: Agitated no jaundice diaphoresis Labs: CBC, BMP 08/26/16 05:35 08/26/16 05:35 ecg 08/12/16: sr, old rbbb cta chest: no pe, no chf, +left infiltrates echo 04/2014: nl lv, rv tds, mod brian, mod mr, mod tr, rvsp 40-50, mild-mod , mod ar, ao root mild dilatation echo report reviewed: 08/13/16: mod-sev dec LV fn. apical inferior wall AK, mod global HK. NL rv. mod -sev ar. MIld-mod MR, mod TR. RVSP 50-60. bline ao dilation. a/p: 76 m hx htn, copd on home 02, hld, dm, cad s/p remote mi/pci, remote aortic graft endo repair, atrophic left kidney here with sob. pna, copd, sob, acute hypoxiac resp failure: -completed course of abx and has been on steroids but then worse hypoxia and repeat cxr showed new pna, now back on iv abx. plans per id/pulm. -also with trace effusions (blunted angles) on cxr since 08/19, not previously present on initial CXR -08/23 BNP 25K, up from 4900.per RN phone call, pt seems very tired, moreso than usual, bp 160. but no resp distress noted, no c/o sob she says. rec repeat lasix 40mg IVP . had 40 mg IVP earlier today. evaluate sob, O2 requirements and CXR in am, daily wts - 08/24: Tolerated lasix yesterday with mild improvement in dyspnea. CXR without significant pulm edema, but there was minimal blunting of lt costophrenic angle. Will redose lasix 40 mg IV daily and then resume home lasix 20 mg PO daily for tomorrow. -08/25-: cont po lasix systolic cardiomyopathy - EF mod-sev decr'd on echo here - normal LVEF on echo here 04/2014--follows with dr kerr cardio, ? when/if LV dysfxns noted previously - no convincing acute chf here (see above disc'n) - CT chest 08/12 without pulmonary edema. - dose of IV lasix x 2 08/23 and IV lasix x 1 08/24 as mentioned. Resuming home po regimen (20 mg daily) 08/25. - con't low dose toprol as doing (previously tolerated metoprolol 100 mg bid) - titrate up toprol as outpt if no bronchospasm suspected--defer to dr kerr - ARB held here sec to hyperkalemia. resumed low dose losartan 08/25 ( previously on 100 mg/day) htn: - cont current meds hld: -cont statin atypical chest pain, cad s/p remote mi/pci: -no signs acs, ce's neg x2. cp on initial eval seemed related to msk/pna, not suggestive of cardiac etiology -cont home statin, arb, plavix. adding back bb - Systolic dysfunction. Will need f/u with dr kerr (cardio) for further outpatient work up if this is a new finding. mr, tr, ar, as: -moderate on prior echo, no signs of chf - stable on repeat echo h/o AAA endovasc repair: -outpt monitoring/followup (cirilo). 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
--- NOTE | 2016-08-26 10:36 | PN ---
Progress Note, Physician Chief Complaint: Mr Varma is very lethargic today. Slurred speech but alert and oriented. Denies cp, sob, n/v. Spoke with RN and says patient has episodes of lethargy. - Current Medication List Current Medications: Active Medications Acetaminophen (Tylenol -) 650 mg PO Q4H PRN PRN Reason: FEVER OR PAIN Acetylcysteine (Mucomyst 20 Oral / Inh Use Only*) 200 mg NEB BID [facility] Last Admin: 08/25/16 22:15 Dose: Not Given Albuterol Sulfate (Ventolin 0.083% Nebulizer Soln -) 1 amp NEB Q4H PRN PRN Reason: SHORT OF BREATH/WHEEZING Last Admin: 08/25/16 22:20 Dose: 1 amp Albuterol/Ipratropium (Duoneb -) 1 amp NEB QIDR [facility] Last Admin: 08/26/16 06:37 Dose: 1 amp Alprazolam (Xanax -) 0.25 mg PO BID PRN PRN Reason: ANXIETY Last Admin: 08/25/16 23:01 Dose: 0.25 mg Atorvastatin Calcium (Lipitor -) 20 mg PO HS [facility] Last Admin: 08/25/16 22:10 Dose: 20 mg Cholecalciferol (Vitamin D3 -) 1,000 unit PO DAILY [facility] Last Admin: 08/25/16 10:04 Dose: 1,000 unit Clopidogrel Bisulfate (Plavix -) 75 mg PO DAILY [facility] Last Admin: 08/25/16 10:04 Dose: 75 mg Enoxaparin Sodium (Lovenox -) 40 mg SQ DAILY [facility] Last Admin: 08/25/16 10:03 Dose: 40 mg Furosemide (Lasix -) 20 mg PO DAILY [facility] Last Admin: 08/25/16 10:03 Dose: 20 mg Guaifenesin (Mucinex -) 1,200 mg PO BID [facility] Last Admin: 08/25/16 22:10 Dose: 1,200 mg Piperacillin Sod/Tazobactam Sod (Zosyn 3.375gm Ivpb (Pre-Docked)) 50 mls @ 100 mls/hr IVPB Q8H-IV EDVIN PRN Reason: Protocol Last Admin: 08/26/16 01:12 Dose: 100 mls/hr Insulin Aspart (Novolog Vial Sliding Scale -) 0 vial SQ ACHS EDVIN PRN Reason: Protocol Last Admin: 08/26/16 06:01 Dose: Not Given Losartan Potassium (Cozaar -) 25 mg PO DAILY [facility] Last Admin: 08/25/16 10:02 Dose: 25 mg Metformin HCl (Glucophage -) 1,000 mg PO BIDAC [facility] Last Admin: 08/26/16 06:07 Dose: Not Given Metoprolol Succinate (Toprol Xl -) 25 mg PO DAILY [facility] Last Admin: 08/25/16 10:04 Dose: 25 mg Nystatin (Mycostatin Cream -) 1 applic TP BID [facility] Last Admin: 08/25/16 22:10 Dose: 1 applic Prednisone (Deltasone -) 30 mg PO DAILY [facility] Last Admin: 08/25/16 10:03 Dose: 30 mg - Objective Vital Signs: Vital Signs Temperature 97.6 F 08/26/16 10:00 Pulse Rate 95 H 08/26/16 10:00 Respiratory Rate 18 08/26/16 10:00 Blood Pressure 108/59 08/26/16 10:00 O2 Sat by Pulse Oximetry (%) 96 08/25/16 21:00 Constitutional: Yes: Other (lethargic but arousable) Cardiovascular: Yes: Regular Rate and Rhythm. No: Gallop, Murmur, Rub Respiratory: Yes: Regular, CTA Bilaterally, On Venti-Mask. No: Rales, Rhonchi, Wheezes Gastrointestinal: Yes: Normal Bowel Sounds, Soft. No: Distention, Tenderness Extremities: Yes: WNL Edema: No Labs: CBC, BMP 08/26/16 05:35 08/26/16 05:35 INR, PTT INR 1.19 (0.82-1.09) H 08/12/16 14:11 Problem List - Problems (1) Acute and chronic respiratory failure Code(s): J96.20 - ACUTE AND CHR RESP FAILURE, UNSP W HYPOXIA OR HYPERCAPNIA Qualifiers: Respiratory failure complication: hypoxia Qualified Code(s): J96.21 - Acute and chronic respiratory failure with hypoxia (2) Pneumonia Code(s): J18.9 - PNEUMONIA, UNSPECIFIED ORGANISM (3) Chest pain Code(s): R07.9 - CHEST PAIN, UNSPECIFIED (4) Chronic diastolic (congestive) heart failure Code(s): I50.32 - CHRONIC DIASTOLIC (CONGESTIVE) HEART FAILURE (5) COPD (chronic obstructive pulmonary disease) Code(s): J44.9 - CHRONIC OBSTRUCTIVE PULMONARY DISEASE, UNSPECIFIED Qualifiers : COPD type: COPD with acute exacerbation Qualified Code(s): J44.1 - Chronic obstructive pulmonary disease with (acute) exacerbation (6) HTN (hypertension) Code(s): I10 - ESSENTIAL (PRIMARY) HYPERTENSION (7) HLD (hyperlipidemia) Code(s): E78.5 - HYPERLIPIDEMIA, UNSPECIFIED (8) Diabetes Code(s): E11.9 - TYPE 2 DIABETES MELLITUS WITHOUT COMPLICATIONS Qualifiers: Diabetes mellitus type: type 2 Assessment/Plan (1) Acute on chronic respiratory failure -now with lethargy -will obtain stat ABG -unusual if having hypercarbia as has episodes as opposed to continuous lethargy -however patient is slightly tachypneic so possible becomes hypercapneic and lethargic but compensates by increased respiratory rate -if hypercarbia without compensation, will start on bipap -bicarb is decreasing on bmp and overall has been stable so argues against chronic retention but will check ABG -if not secondary to hypercarbia, will consult neurology (2) Pneumonia Assessment/Plan: -leukocytosis increased today -ID following -continue zosyn Code(s): J18.9 - PNEUMONIA, UNSPECIFIED ORGANISM (3) Chest pain Assessment/Plan: -resolved -pleurisy secondary to pneumonia Code(s): R07.9 - CHEST PAIN, UNSPECIFIED (4) Chronic diastolic (congestive) heart failure Assessment/Plan: -cardiology following -continue lasix -monitor, slightly hypernatremic today so may be intravascularly depleted Code(s): I50.32 - CHRONIC DIASTOLIC (CONGESTIVE) HEART FAILURE (5) COPD (chronic obstructive pulmonary disease) Assessment/Plan: -follow up ABG -lung exam clear and patient saturating on venti mask -continue current management, pulmonary following Code(s): J44.9 - CHRONIC OBSTRUCTIVE PULMONARY DISEASE, UNSPECIFIED Qualifiers : COPD type: COPD with acute exacerbation Qualified Code(s): J44.1 - Chronic obstructive pulmonary disease with (acute) exacerbation (6) HTN (hypertension) Assessment/Plan: -continue toprol xl -cozaar restarted at lower dose -low dose lasix started Code(s): I10 - ESSENTIAL (PRIMARY) HYPERTENSION (7) HLD (hyperlipidemia) Assessment/Plan: -continue lipitor Code(s): E78.5 - HYPERLIPIDEMIA, UNSPECIFIED (8) Diabetes -continue diabetic diet -continue metformin and SSI -hyperglycemia secondary to steroids
--- NOTE | 2016-08-26 10:38 | PN ---
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 This has been recurrent. Seen bedside, initially no response to name calling/sternal rub. With cues pt was able to close eyes/open eyes fully/protrude tongue/lift arms bilaterally. Elicited low volume speech, pt stating "No air." o2 saturation taken-94%. Call placed to Dr. Arias who came immediately. ABG stat ordered to r/o co2 retention. 08/24/16 ABG noted. Doubt related to Dysphagia. No cough/congestion/overall muscle restriction and stiffness that improves, per staff. F/u by pulmonary.
[2016-08-26 10:46] LABS: ALLENS TEST POSITIVE; ART PUNCT SITE RIGHT RADIAL; ARTERIAL BLD GAS O2 SATURATION 96.2 % (90-98.9); ARTERIAL BLOOD GAS BASE EXCESS 10.4 meq/l (-2-2); ARTERIAL BLOOD GAS HCO3 36.9 meq/L (22-26)
[2016-08-26 10:47] LABS: LPM/O2% 50%; PT. ON O2? YES; TYPE OF O2 VENTI MASK
[2016-08-26] MEDS: ENOXAPARIN NA (PORCINE) 40 MG/0.4 ML DISP.SYRIN SQ SCH (11:10)
[2016-08-26] MEDS: FUROSEMIDE 20 MG TABLET (FP) PO SCH (11:11)
[2016-08-26] MEDS: LOSARTAN POTASSIUM 25 MG TABLET PO SCH (11:11)
[2016-08-26] MEDS: CHOLECALCIFEROL (VITAMIN D3) 1,000 UNIT TABLET (FP) PO SCH (11:12)
[2016-08-26] MEDS: guaiFENesin 600 MG TABLET.ER (FP) PO SCH (11:12)
[2016-08-26] MEDS: NYSTATIN 100,000 UNIT/GM TOPICAL CREAM 15 GM TUBE TP SCH (11:13)
[2016-08-26] MEDS: METOPROLOL SUCCINATE 25 MG TAB.SR.24H (FP) PO SCH (11:13)
[2016-08-26] MEDS: predniSONE 20 MG TABLET (UD) PO SCH (11:13)
[2016-08-26] MEDS: CLOPIDOGREL BISULFATE 75 MG TABLET (FP) PO SCH (11:13)
[2016-08-26 12:19] LABS: URINE BLOOD 1+ (NEGATIVE); URINE LEUK ESTERASE TRACE (NEGATIVE); URINE PROTEIN 2+ (NEGATIVE)
[2016-08-26] MEDS ORDERED: INSULIN (NOVOLOG) ASPART 100 UNITS/ML 10ML VIAL ONE (12:20)
[2016-08-26 12:24] LABS: CALCIUM OXALATE CRYSTALS RARE /hpf (NONE SEEN); URIC ACID CRYSTALS FEW /hpf (NONE SEEN); URINE RBC 4 /hpf (0-3); URINE WBC 5 /hpf (3-5); YEAST RARE
--- NOTE | 2016-08-26 13:10 | DS ---
Physical Examination Vital Signs: Vital Signs Temperature 97.6 F 08/26/16 10:00 Pulse Rate 95 H 08/26/16 10:00 Respiratory Rate 18 08/26/16 10:00 Blood Pressure 108/59 08/26/16 10:00 O2 Sat by Pulse Oximetry (%) 96 08/25/16 21:00 Labs: CBC, BMP 08/26/16 05:35 08/26/16 05:35 Discharge Summary Reason For Visit: LUNG MASS Current Active Problems Acute and chronic respiratory failure (Acute) Chest pain (Acute) Chronic diastolic (congestive) heart failure (Acute) Chronic respiratory failure with hypoxia (Acute) Diabetes (Acute) Elevated liver enzymes (Acute) HLD (hyperlipidemia) (Acute) HTN (hypertension) (Acute) Lung mass (Acute) Pneumonia (Acute) Prolonged QT interval (Acute) Pulmonary hypertension (Acute) Hospital Course: (1) Acute and chronic respiratory failure Code(s): J96.20 - ACUTE AND CHR RESP FAILURE, UNSP W HYPOXIA OR HYPERCAPNIA Qualifiers: Respiratory failure complication: hypoxia Qualified Code(s): J96.21 - Acute and chronic respiratory failure with hypoxia (2) Pneumonia Code(s): J18.9 - PNEUMONIA, UNSPECIFIED ORGANISM (3) Chest pain Code(s): R07.9 - CHEST PAIN, UNSPECIFIED (4) Chronic diastolic (congestive) heart failure Code(s): I50.32 - CHRONIC DIASTOLIC (CONGESTIVE) HEART FAILURE (5) COPD (chronic obstructive pulmonary disease) Code(s): J44.9 - CHRONIC OBSTRUCTIVE PULMONARY DISEASE, UNSPECIFIED Qualifiers : COPD type: COPD with acute exacerbation Qualified Code(s): J44.1 - Chronic obstructive pulmonary disease with (acute) exacerbation (6) HTN (hypertension) Code(s): I10 - ESSENTIAL (PRIMARY) HYPERTENSION (7) HLD (hyperlipidemia) Code(s): E78.5 - HYPERLIPIDEMIA, UNSPECIFIED (8) Diabetes Code(s): E11.9 - TYPE 2 DIABETES MELLITUS WITHOUT COMPLICATIONS Qualifiers: Diabetes mellitus type: type 2 Mr Varma is a pleasant 76 year old male who came in with pneumonia causing acute on chronic respiratory failure. He was admitted to the hospital and started on rocephin. He was seen by pulmonary and treated for COPD exacerbation. He was also seen by cardiology for diastolic CHF. He was treated for both. He initially improved but then worsened. ID was consulted and his antibiotics were expanded. Speech therapy was also consulted and did not note aspiration with bedside swallowing. His breathing waxed and waned. Discussion with family yielded that they would prefer further treatment at [facility]. 45 minutes spent in preparation of this discharge Condition: Guarded - Instructions Diet, Activity, Other Instructions: resume previous diet and activity Referrals: Cain Yun MD [Primary Care Provider] - Sanjay Wright MD, MD [Staff Physician] - Disposition: TRANSFER ACUTE CARE/OTHER HOSP - Home Medications Comprehensive Discharge Medication List: Ambulatory Orders Albuterol Sulfate [Proair Hfa -] 2 ih IH DAILY PRN #0 [id number] 02/24/12 Atorvastatin Ca [Lipitor] 20 mg PO HS #0 tablet 02/24/12 Amlodipine Besylate [Norvasc -] 10 mg PO HS 11/18/14 Metformin HCl [Glucophage -] 1,000 mg PO BIDAC 11/18/14 Alprazolam 0.25 mg PO PRN PRN 05/29/15 Cholecalciferol (Vitamin D3) [Vitamin D3] 1,000 unit PO HS 05/29/15 Clopidogrel Bisulfate [Plavix -] 75 mg PO HS 08/12/16 Fluticasone/Salmeterol [Advair Hfa 230-21 Mcg Inhaler] 2 inh PO BID 08/12/16 Ipratropium/Albuterol Sulfate [Iprat-Albut 0.5-3(2.5) mg/3 ml] 3 ml IH BID PRN 08/12/16 Magnesium Oxide [Mag-Ox -] 400 mg PO HS 08/12/16 Metoprolol Succinate [Toprol XL -] 25 mg PO DAILY #30 tab.sr 08/18/16 Albuterol 2.5/Ipratropium 0.5 [Duoneb -] 1 amp NEB QIDR amp 08/26/16 Alprazolam [Xanax] 0.25 mg PO BID PRN #1 tablet MDD 1mg 08/26/16 Furosemide [Lasix -] 20 mg PO DAILY tablet 08/26/16 Guaifenesin [Mucinex -] 1,200 mg PO BID tab.ec 08/26/16 Losartan Potassium [Cozaar -] 25 mg PO DAILY tablet 08/26/16 Prednisone [Deltasone -] 30 mg PO DAILY tablet 08/26/16
--- NOTE | 2016-08-26 14:57 | PN ---
Progress Note, Physician History of Present Illness: still continues to struggle with espiration treatment continuning for aspiration plan for LTAC and continuing treatment - Current Medication List Current Medications: Active Medications Acetaminophen (Tylenol -) 650 mg PO Q4H PRN PRN Reason: FEVER OR PAIN Acetylcysteine (Mucomyst 20 Oral / Inh Use Only*) 200 mg NEB BID [facility]CLUDE [facility] BEDS AT [facility] Last Admin: 08/25/16 22:15 Dose: Not Given Albuterol Sulfate (Ventolin 0.083% Nebulizer Soln -) 1 amp NEB Q4H PRN PRN Reason: SHORT OF BREATH/WHEEZING Last Admin: 08/25/16 22:20 Dose: 1 amp Albuterol/Ipratropium (Duoneb -) 1 amp NEB QIDR COUNTS INCLUDE 234 BEDS AT [facility] Last Admin: 08/26/16 11:30 Dose: 1 amp Alprazolam (Xanax -) 0.25 mg PO BID PRN PRN Reason: ANXIETY Last Admin: 08/25/16 23:01 Dose: 0.25 mg Atorvastatin Calcium (Lipitor -) 20 mg PO HS [facility]S [facility]CLUDE 234 BEDS AT [facility] Last Admin: 08/25/16 22:10 Dose: 20 mg Cholecalciferol (Vitamin D3 -) 1,000 unit PO DAILY [facility]CLUDE 234 BEDS AT [facility] Last Admin: 08/26/16 11:12 Dose: 1,000 unit Clopidogrel Bisulfate (Plavix -) 75 mg PO DAILY [facility]CLUDE 234 BEDS AT [facility] Last Admin: 08/26/16 11:13 Dose: 75 mg Enoxaparin Sodium (Lovenox -) 40 mg SQ DAILY [facility]S [facility]CLUDE 234 BEDS AT [facility] Last Admin: 08/26/16 11:10 Dose: 40 mg Furosemide (Lasix -) 20 mg PO DAILY [facility]CLUDE 234 BEDS AT [facility] Last Admin: 08/26/16 11:11 Dose: 20 mg Guaifenesin (Mucinex -) 1,200 mg PO BID [facility]CLUDE 234 BEDS AT [facility] Last Admin: 08/26/16 11:12 Dose: 1,200 mg Piperacillin Sod/Tazobactam Sod (Zosyn 3.375gm Ivpb (Pre-Docked)) 50 mls @ 100 mls/hr IVPB Q8H-IV EDVIN PRN Reason: Protocol Last Admin: 08/26/16 10:11 Dose: 100 mls/hr Insulin Aspart (Novolog Vial Sliding Scale -) 0 vial SQ ACHS EDVIN PRN Reason: Protocol Last Admin: 08/26/16 12:55 Dose: 5 units Losartan Potassium (Cozaar -) 25 mg PO DAILY [facility]CLUDE 234 BEDS AT [facility] Last Admin: 08/26/16 11:11 Dose: 25 mg Metformin HCl (Glucophage -) 1,000 mg PO BIDAC COUNTS INCLUDE 234 BEDS AT [facility] Last Admin: 08/26/16 11:12 Dose: 1,000 mg Metoprolol Succinate (Toprol Xl -) 25 mg PO DAILY [facility]CLUDE 234 BEDS AT [facility] Last Admin: 08/26/16 11:13 Dose: 25 mg Nystatin (Mycostatin Cream -) 1 applic TP BID [facility]S [facility]CLUDE 234 BEDS AT [facility] Last Admin: 08/26/16 11:13 Dose: 1 applic Prednisone (Deltasone -) 30 mg PO DAILY [facility]CLUDE 234 BEDS AT [facility] Last Admin: 08/26/16 11:13 Dose: 30 mg - Objective Vital Signs: Vital Signs Temperature 97.6 F 08/26/16 10:00 Pulse Rate 95 H 08/26/16 10:00 Respiratory Rate 18 08/26/16 10:00 Blood Pressure 108/59 08/26/16 10:00 O2 Sat by Pulse Oximetry (%) 95 08/26/16 09:00 Constitutional: Yes: Calm, Mild Distress Cardiovascular: Yes: S1, S2 Respiratory: Yes: On Venti-Mask, Poor Air Entry, Rhonchi Gastrointestinal: Yes: Normal Bowel Sounds, Soft Musculoskeletal: Yes: WNL Extremities: Yes: WNL Neurological: Yes: Alert, Oriented Psychiatric: Yes: Alert, Oriented Labs: CBC, BMP 08/26/16 05:35 08/26/16 05:35 INR, PTT INR 1.19 (0.82-1.09) H 08/12/16 14:11 Assessment/Plan Problem List - Problems (1) Acute and chronic respiratory failure Code(s): J96.20 - ACUTE AND CHR RESP FAILURE, UNSP W HYPOXIA OR HYPERCAPNIA Qualifiers: Respiratory failure complication: hypoxia Qualified Code(s): J96.21 - Acute and chronic respiratory failure with hypoxia (2) Pneumonia Code(s): J18.9 - PNEUMONIA, UNSPECIFIED ORGANISM (3) Chest pain Code(s): R07.9 - CHEST PAIN, UNSPECIFIED (4) Chronic diastolic (congestive) heart failure Code(s): I50.32 - CHRONIC DIASTOLIC (CONGESTIVE) HEART FAILURE (5) COPD (chronic obstructive pulmonary disease) Code(s): J44.9 - CHRONIC OBSTRUCTIVE PULMONARY DISEASE, UNSPECIFIED Qualifiers : COPD type: COPD with acute exacerbation Qualified Code(s): J44.1 - Chronic obstructive pulmonary disease with (acute) exacerbation (6) HTN (hypertension) Code(s): I10 - ESSENTIAL (PRIMARY) HYPERTENSION (7) HLD (hyperlipidemia) Code(s): E78.5 - HYPERLIPIDEMIA, UNSPECIFIED (8) Diabetes Code(s): E11.9 - TYPE 2 DIABETES MELLITUS WITHOUT COMPLICATIONS Qualifiers: Diabetes mellitus type: type 2 patient now needing resp support plan continue abx continue current mgmt aspiration precautions rest as per primary if patient going to LTAC in [facility]--complete the abx course
--- NOTE | 2016-08-26 15:07 | PN ---
Progress Note (short form) - Note Progress Note: Awake and alert on 50% VM O2. Reports that breathing has overall improved but is still requiring VM. Still with some cough. No hemoptysis. Intake & Output 08/23/16 08/24/16 08/25/16 08/26/16 23:59 23:59 23:59 23:59 Intake Total 320 300 250 Output Total 250 150 Balance 70 300 250 -150 Weight 190 lb 2 oz 187 lb 2 oz Last Vital Signs Temp Pulse Resp BP Pulse Ox 97.6 F 95 H 18 108/59 95 08/26/16 10:00 08/26/16 10:00 08/26/16 10:00 08/26/16 10:00 08/26/16 09:00 Active Medications Acetaminophen (Tylenol -) 650 mg PO Q4H PRN PRN Reason: FEVER OR PAIN Acetylcysteine (Mucomyst 20 Oral / Inh Use Only*) 200 mg NEB BID [facility] Last Admin: 08/25/16 22:15 Dose: Not Given Albuterol Sulfate (Ventolin 0.083% Nebulizer Soln -) 1 amp NEB Q4H PRN PRN Reason: SHORT OF BREATH/WHEEZING Last Admin: 08/25/16 22:20 Dose: 1 amp Albuterol/Ipratropium (Duoneb -) 1 amp NEB QIDR [facility] Last Admin: 08/26/16 11:30 Dose: 1 amp Alprazolam (Xanax -) 0.25 mg PO BID PRN PRN Reason: ANXIETY Last Admin: 08/25/16 23:01 Dose: 0.25 mg Atorvastatin Calcium (Lipitor -) 20 mg PO [facility] Last Admin: 08/25/16 22:10 Dose: 20 mg Cholecalciferol (Vitamin D3 -) 1,000 unit PO DAILY [facility] Last Admin: 08/26/16 11:12 Dose: 1,000 unit Clopidogrel Bisulfate (Plavix -) 75 mg PO DAILY [facility] Last Admin: 08/26/16 11:13 Dose: 75 mg Enoxaparin Sodium (Lovenox -) 40 mg SQ DAILY [facility] Last Admin: 08/26/16 11:10 Dose: 40 mg Furosemide (Lasix -) 20 mg PO DAILY [facility] Last Admin: 08/26/16 11:11 Dose: 20 mg Guaifenesin (Mucinex -) 1,200 mg PO BID [facility] Last Admin: 08/26/16 11:12 Dose: 1,200 mg Piperacillin Sod/Tazobactam Sod (Zosyn 3.375gm Ivpb (Pre-Docked)) 50 mls @ 100 mls/hr IVPB Q8H-IV [facility] PRN Reason: Protocol Last Admin: 08/26/16 10:11 Dose: 100 mls/hr Insulin Aspart (Novolog Vial Sliding Scale -) 0 vial SQ ACHS [facility] PRN Reason: Protocol Last Admin: 08/26/16 12:55 Dose: 5 units Losartan Potassium (Cozaar -) 25 mg PO DAILY [facility] Last Admin: 08/26/16 11:11 Dose: 25 mg Metformin HCl (Glucophage -) 1,000 mg PO BIDAC [facility] Last Admin: 08/26/16 11:12 Dose: 1,000 mg Metoprolol Succinate (Toprol Xl -) 25 mg PO DAILY [facility] Last Admin: 08/26/16 11:13 Dose: 25 mg Nystatin (Mycostatin Cream -) 1 applic TP BID [facility] Last Admin: 08/26/16 11:13 Dose: 1 applic Prednisone (Deltasone -) 30 mg PO DAILY [facility] Last Admin: 08/26/16 11:13 Dose: 30 mg Constitutional: Yes: Awake and alert, mildly tachypneic at rest. Eyes: Yes: WNL HENT: Yes: WNL Neck: Yes: WNL Cardiovascular: Yes: Regular Rate and Rhythm, S1, S2 Respiratory: Yes: Scattered bilateral Rhonchi Gastrointestinal: Yes: Normal Bowel Sounds, Soft Extremities: Yes: WNL Edema: No Labs: Laboratory Results - last 24 hr 08/25/16 08/25/16 08/26/16 17:39 21:16 05:18 WBC RBC Hgb Hct MCV MCHC RDW Plt Count MPV Neutrophils % Lymphocytes % Monocytes % Eosinophils % Basophils % Puncture Site ABG pH ABG pCO2 at Pt Temp ABG pO2 at Pt Temp ABG HCO3 ABG O2 Sat (Measured) ABG O2 Content ABG Base Excess Omi Test O2 Delivery Device Oxygen Flow Rate PEEP Sodium Potassium Chloride Carbon Dioxide Anion Gap BUN Creatinine POC Glucometer 272 242 128 Random Glucose Calcium Phosphorus Magnesium Urine Color Urine Appearance Urine pH Urine Protein Urine Glucose (UA) Urine Ketones Urine Blood Urine Nitrite Urine Bilirubin Urine Urobilinogen Ur Leukocyte Esterase Urine RBC Urine WBC Ur Epithelial Cells Calcium Oxalate Crystal Uric Acid Crystals Urine Yeast 08/26/16 08/26/16 08/26/16 05:35 05:35 07:30 WBC 15.2 H RBC 4.19 Hgb 12.1 Hct 37.5 MCV 89.3 MCHC 32.2 RDW 15.5 Plt Count 329 MPV 8.5 Neutrophils % 88.0 H Lymphocytes % 5.9 L D Monocytes % 5.4 Eosinophils % 0.5 Basophils % 0.2 Puncture Site ABG pH ABG pCO2 at Pt Temp ABG pO2 at Pt Temp ABG HCO3 ABG O2 Sat (Measured) ABG O2 Content ABG Base Excess Omi Test O2 Delivery Device Oxygen Flow Rate PEEP Sodium 146 H Potassium 4.1 Chloride 101 Carbon Dioxide 34 H Anion Gap 11 BUN 36 H Creatinine 1.0 POC Glucometer Random Glucose 148 H D Calcium 9.1 Phosphorus 3.1 Magnesium 2.0 Urine Color Yellow Urine Appearance Cloudy Urine pH 5.0 Urine Protein 2+ H Urine Glucose (UA) 1+ H Urine Ketones Negative Urine Blood 1+ H Urine Nitrite Negative Urine Bilirubin Negative Urine Urobilinogen Negative Ur Leukocyte Esterase Trace H Urine RBC 4 Urine WBC 5 Ur Epithelial Cells Rare Calcium Oxalate Crystal Rare Uric Acid Crystals Few Urine Yeast Rare 08/26/16 08/26/16 10:28 11:27 WBC RBC Hgb Hct MCV MCHC RDW Plt Count MPV Neutrophils % Lymphocytes % Monocytes % Eosinophils % Basophils % Puncture Site Right radial ABG pH 7.40 ABG pCO2 at Pt Temp 60.3 H* ABG pO2 at Pt Temp 79.0 ABG HCO3 36.9 H ABG O2 Sat (Measured) 96.2 ABG O2 Content 16.3 ABG Base Excess 10.4 H Omi Test Positive O2 Delivery Device Venti mask Oxygen Flow Rate 50% PEEP 0.0 Sodium Potassium Chloride Carbon Dioxide Anion Gap BUN Creatinine POC Glucometer 281 Random Glucose Calcium Phosphorus Magnesium Urine Color Urine Appearance Urine pH Urine Protein Urine Glucose (UA) Urine Ketones Urine Blood Urine Nitrite Urine Bilirubin Urine Urobilinogen Ur Leukocyte Esterase Urine RBC Urine WBC Ur Epithelial Cells Calcium Oxalate Crystal Uric Acid Crystals Urine Yeast Assessment/Plan Problem List - Problems (1) Chest pain Code(s): R07.9 - CHEST PAIN, UNSPECIFIED (2) COPD (chronic obstructive pulmonary disease) Code(s): J44.9 - CHRONIC OBSTRUCTIVE PULMONARY DISEASE, UNSPECIFIED (3) Chronic respiratory failure with hypoxia Code(s): J96.11 - CHRONIC RESPIRATORY FAILURE WITH HYPOXIA (4) Elevated liver enzymes Code(s): R74.8 - ABNORMAL LEVELS OF OTHER SERUM ENZYMES (5) Chronic diastolic (congestive) heart failure Code(s): I50.32 - CHRONIC DIASTOLIC (CONGESTIVE) HEART FAILURE (6) Pulmonary hypertension Code(s): I27.2 - OTHER SECONDARY PULMONARY HYPERTENSION Assessment/Plan Chest Pain Acute on chronic hypoxemic respiratory failure Pneumonia Severe COPD Emphysema LV Diastolic Dysfunction Pulmonary HTN - inhaled bronchodilators - O2 to keep SPo2 >90% - DVT prophylaxis - steroid taper - antibiotics as per ID - mucomyst - chest pt - chest x-ray am - Patient/Family have requested transfer to [facility]. Dr Smith
[2016-08-26 15:09] VITALS: BP 116/70; PULSE 101; TEMP 98.3
--- NOTE | 2016-08-26 15:24 | CONSULT ---
Consult - text type - Consultation Consultation Note: Neurology Mr Varma is a pleasant 76 year old male who presented with increasing dyspnea on exertion and left sided chest pain. He was admitted and ongoing pulmonary difficulty. Today with episode of altered mental status. Neurology consulted, and when I saw him, he was awake, alert, and able to tell me person, place, date , name of President. His at bedside reports these events occur occasionally and during feeding. Patient for Cavalri placement. Recommended CT head to confirm no acute changes but patient at baseline currently. - Past Medical History Cardiovascular: Yes: Aneurysm, CAD, HTN, Hyperlipdemia, OR Pulmonary: Yes: COPD, O2 Dependent Renal/: Yes: Renal Inusuff - Past Surgical History Past Surgical History: Yes: Hernia Repair, Stent - Smoking History Smoking history: Former smoker Have you smoked in the past 12 months: No Aproximately how many cigarettes per day: 20 If you are a former smoker, when did you quit?: 2013 - Alcohol/Substance Use Hx Alcohol Use: No History of Substance Use: reports: None - Social History Usual Living Arrangement: Yes: With Spouse ADL: Independent History of Recent Travel: No Home Medications - Allergies Allergies/Adverse Reactions: Allergies Allergy/AdvReac Type Severity Reaction Status Date / Time No Known Allergies Allergy Verified 08/12/16 13:25 Active Medications Acetaminophen (Tylenol -) 650 mg PO Q4H PRN PRN Reason: FEVER OR PAIN Acetylcysteine (Mucomyst 20 Oral / Inh Use Only*) 200 mg NEB BID [facility] Last Admin: 08/25/16 22:15 Dose: Not Given Albuterol Sulfate (Ventolin 0.083% Nebulizer Soln -) 1 amp NEB Q4H PRN PRN Reason: SHORT OF BREATH/WHEEZING Last Admin: 08/25/16 22:20 Dose: 1 amp Albuterol/Ipratropium (Duoneb -) 1 amp NEB QIDR [facility] Last Admin: 08/26/16 11:30 Dose: 1 amp Alprazolam (Xanax -) 0.25 mg PO BID PRN PRN Reason: ANXIETY Last Admin: 08/25/16 23:01 Dose: 0.25 mg Atorvastatin Calcium (Lipitor -) 20 mg PO HS [facility] Last Admin: 08/25/16 22:10 Dose: 20 mg Cholecalciferol (Vitamin D3 -) 1,000 unit PO DAILY [facility] Last Admin: 08/26/16 11:12 Dose: 1,000 unit Clopidogrel Bisulfate (Plavix -) 75 mg PO DAILY [facility] Last Admin: 08/26/16 11:13 Dose: 75 mg Enoxaparin Sodium (Lovenox -) 40 mg SQ DAILY [facility] Last Admin: 08/26/16 11:10 Dose: 40 mg Furosemide (Lasix -) 20 mg PO DAILY [facility] Last Admin: 08/26/16 11:11 Dose: 20 mg Guaifenesin (Mucinex -) 1,200 mg PO BID [facility] Last Admin: 08/26/16 11:12 Dose: 1,200 mg Piperacillin Sod/Tazobactam Sod (Zosyn 3.375gm Ivpb (Pre-Docked)) 50 mls @ 100 mls/hr IVPB Q8H-IV [facility] PRN Reason: Protocol Last Admin: 08/26/16 10:11 Dose: 100 mls/hr Insulin Aspart (Novolog Vial Sliding Scale -) 0 vial SQ ACHS [facility] PRN Reason: Protocol Last Admin: 08/26/16 12:55 Dose: 5 units Losartan Potassium (Cozaar -) 25 mg PO DAILY [facility] Last Admin: 08/26/16 11:11 Dose: 25 mg Metformin HCl (Glucophage -) 1,000 mg PO BIDAC [facility] Last Admin: 08/26/16 11:12 Dose: 1,000 mg Metoprolol Succinate (Toprol Xl -) 25 mg PO DAILY [facility] Last Admin: 08/26/16 11:13 Dose: 25 mg Nystatin (Mycostatin Cream -) 1 applic TP BID [facility] Last Admin: 08/26/16 11:13 Dose: 1 applic Prednisone (Deltasone -) 30 mg PO DAILY [facility] Last Admin: 08/26/16 11:13 Dose: 30 mg Family Disease History - Family Disease History Family Disease History: CA: Sister Review of Systems Findings/Remarks: Full review of systems obtained, as per HPI and otherwise negative. Physical Examination Vital Signs: Vital Signs Temperature 98.3 F 08/26/16 15:08 Pulse Rate 101 H 08/26/16 15:08 Respiratory Rate 18 08/26/16 15:08 Blood Pressure 116/70 08/26/16 15:08 O2 Sat by Pulse Oximetry (%) 95 08/26/16 09:00 Constitutional: Yes: Well Nourished, No Distress, Calm Eyes: Yes: Conjunctiva Clear, EOM Intact, PERRL HENT: Yes: Atraumatic, Normocephalic Cardiovascular: Yes: Regular Rate and Rhythm. No: Gallop, Murmur, Rub Respiratory: Yes: Regular, On Nasal O2, Wheezes, Other (fair air entry). No: Rales, Rhonchi Gastrointestinal: Yes: Normal Bowel Sounds, Soft. No: Distention, Tenderness Extremities: Yes: WNL Edema: Yes Edema: LLE: 1+, RLE: 1+ Labs: CBCD WBC 15.2 K/mm3 (4.0-10.0) H 08/26/16 05:35 RBC 4.19 M/mm3 (4.00-5.60) 08/26/16 05:35 Hgb 12.1 GM/dL (11.7-16.9) 08/26/16 05:35 Hct 37.5 % (35.4-49) 08/26/16 05:35 MCV 89.3 fl (80-96) 08/26/16 05:35 MCHC 32.2 g/dl (32.0-35.9) 08/26/16 05:35 RDW 15.5 % (11.9-15.9) 08/26/16 05:35 Plt Count 329 K/MM3 (134-434) 08/26/16 05:35 MPV 8.5 fl (7.5-11.1) 08/26/16 05:35 CMP Sodium 146 mmol/L (136-145) H 08/26/16 05:35 Potassium 4.1 mmol/L (3.5-5.1) 08/26/16 05:35 Chloride 101 mmol/L (98-107) 08/26/16 05:35 Carbon Dioxide 34 mmol/L (21-32) H 08/26/16 05:35 Anion Gap 11 (8-16) 08/26/16 05:35 BUN 36 mg/dL (7-18) H 08/26/16 05:35 Creatinine 1.0 mg/dL (0.7-1.3) 08/26/16 05:35 Creat Clearance w eGFR 59.02 (>60) 08/23/16 05:50 Calcium 9.1 mg/dL (8.5-10.1) 08/26/16 05:35 Total Bilirubin 0.5 mg/dL (0.2-1.0) D 08/23/16 05:50 AST 27 U/L (15-37) D 08/23/16 05:50 ALT 39 U/L (12-78) 08/23/16 05:50 Alkaline Phosphatase 116 U/L (45-117) 08/23/16 05:50 Total Protein 6.3 g/dl (6.4-8.2) L 08/23/16 05:50 Albumin 2.6 g/dl (3.4-5.0) L 08/23/16 05:50 Imaging - Results Chest X-ray: Report Reviewed, Image Reviewed Plan 76 year old male who presented with increasing dyspnea on exertion and left sided chest pain. He was admitted and ongoing pulmonary difficulty. Today with episode of altered mental status. Neurology consulted, and when I saw him, he was awake, alert, and able to tell me person, place, date, name of President. His at bedside reports these events occur occasionally and during feeding. Patient for Cavalri placement. Recommended CT head to confirm no acute changes but patient at baseline currently.
== END 2016-08-26 16:09 | disposition hospice, inpatient (51) | DRG 190 ==
LOC: JER 12:52 → JERBED 16:51 → J4S 19:00
PROVIDERS: ADMIT Internal Medicine; ATTEND Internal Medicine
DX: J44.0 Chronic obstructive pulmonary disease with (acute) lower respiratory infection (principal); J18.9 Pneumonia, unspecified organism; J96.21 Acute and chronic respiratory failure with hypoxia; J69.0 Pneumonitis due to inhalation of food and vomit; I50.32 Chronic diastolic (congestive) heart failure; I42.9 Cardiomyopathy, unspecified; I25.2 Old myocardial infarction; Z99.81 Dependence on supplemental oxygen; E78.5 Hyperlipidemia, unspecified; I25.10 Atherosclerotic heart disease of native coronary artery without angina pectoris; J44.1 Chronic obstructive pulmonary disease with (acute) exacerbation; E83.42 Hypomagnesemia; Z87.891 Personal history of nicotine dependence; E83.39 Other disorders of phosphorus metabolism; E11.9 Type 2 diabetes mellitus without complications; Z79.84 Long term (current) use of oral hypoglycemic drugs; I27.2 Other secondary pulmonary hypertension; I11.0 Hypertensive heart disease with heart failure; R07.89 Other chest pain; I34.0 Nonrheumatic mitral (valve) insufficiency; I35.0 Nonrheumatic aortic (valve) stenosis; R91.8 Other nonspecific abnormal finding of lung field
CPT/HCPCS: 36415; 36600; 71010-TC; 71275-TC; 76705-TC; 80048; 80053; 80076; 81003; 81015; 82550; 82803; 83036; 83605; 83735; 83880; 84100; 84484; 85025; 85027; 85610; 85730; 87040; 87086; 87899; 93005; 93010; 93306-TC; 94010; 94150; 94640; 94761; 97116-GP; 97162-PG; 99284-25; E0372

== ENCOUNTER 2018-10-02 01:50 | Emergency (ER) | payer OTHER, MEDICARE ==
--- NOTE | 2018-10-02 02:26 | PDOC ---
History of Present Illness <Cam Byrd - Last Filed: 10/02/18 04:11> <Maria Antonia Marin - Last Filed: 10/02/18 06:46> - General Chief Complaint: Cardiac Arrest Stated Complaint: CARDIAC ARREST Time Seen by Provider: 10/02/18 02:14 - History of Present Illness Initial Comments: 10/02/18 02:20 78 yo F with h/o HLD, HTN, DM, COPD, CAD, s/p stent placement, diastolic CHF BIBEMS unresponsive, cardiac asystole. Pt. arrives from home following witnessed arrest, LOC, 1 hour HAZARDOUS [employer]. Patient unrepsonsive to verbal or tactile stimuli, pale, diaphoretic, on EMS arrival. EMS reports patient in asystole 1: 15 (10/02/18) on arrival, with pulseless v-tach, defibrillation unsuccessful, and PEA. 3 rounds of epinephrine delivered in field. Patient intubated in field. Per daughter and at bedside patient in normal state of health, prior to 730 PM. Patient developed altered mental status, with syncope and collapse. Patient arrives from home. Lives at home with . PMHx: as noted above ROS: as noted Allergies: NKDA PMD: Dr. Vanegas (Cam Byrd) Attending Attestation <Cam Byrd - Last Filed: 10/02/18 04:11> - Resident Resident Name: Cam Byrd - ED Attending Attestation I have performed the following: I have examined & evaluated the patient, The case was reviewed & discussed with the resident, I agree w/resident's findings & plan <Maria Antonia Marin - Last Filed: 10/02/18 06:46> - HPI HPI: 10/02/18 06:44 Pt comes in cardiac arrest; Down 30 min; on the trevon (Maria Antonia Marin) - Physicial Exam PE: 10/02/18 06:45 Agree with resident exam (Maria Antonia Marin) - Medical Decision Making 10/02/18 06:45 Pt in the ER. 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/HTN) Asthma: Yes Cancer: No Cardiac Disorders: Yes (MIx2, CAD, cardiac stentsx3, aortic stents x2) CVA: Yes (TIA) COPD: Yes (3LNC o2 dependent-o2 sat 90% baseline) CHF: Yes Dementia: No Diabetes: Yes (NIDDM) GI Disorders: Yes (Hiatal hernia) Disorders: Yes (BPH?; urgency, frequency, "elevated blood work regarding prostate") HTN: Yes Hypercholesterolemia: Yes Liver Disease: No Seizures: No Thyroid Disease: No - Surgical History Abdominal Surgery: Yes (R ingunial hernia repair) Appendectomy: No Cardiac Surgery: Yes (Cardiac stent x 3, Aortic stent x2) Cholecystectomy: No Lung Surgery: No Neurologic Surgery: No Orthopedic Surgery: No - Suicide/Smoking/Psychosocial Hx Smoking Status: Yes Smoking History: Unknown if ever smoked Have you smoked in the past 12 months: No Number of Cigarettes Smoked Daily: 20 If you are a former smoker, when did you quit?: 2013 'Breaking Loose' booklet given: 02/22/12 Hx Alcohol Use: No Drug/Substance Use Hx: No Substance Use Type: None Hx Substance Use Treatment: No <Cam Byrd - Last Filed: 10/02/18 04:11> <Maria Antonia Marin - Last Filed: 10/02/18 06:46> - Past Medical History Allergies/Adverse Reactions: Allergies Allergy/AdvReac Type Severity Reaction Status Date / Time No Known Allergies Allergy Verified 10/02/18 02:02 Home Medications: Ambulatory Orders Albuterol Sulfate [Proair Hfa -] 2 ih IH DAILY PRN #0 [email or web address] 02/24/12 Atorvastatin Ca [Lipitor] 20 mg PO HS #0 tablet 02/24/12 Amlodipine Besylate [Norvasc -] 10 mg PO HS 11/18/14 metFORMIN HCL [Glucophage -] 1,000 mg PO BIDAC 11/18/14 Alprazolam 0.25 mg PO PRN PRN 05/29/15 Cholecalciferol (Vitamin D3) [Vitamin D3] 1,000 unit PO HS 05/29/15 Clopidogrel Bisulfate [Plavix -] 75 mg PO HS 08/12/16 Fluticasone/Salmeterol [Advair Hfa 230-21 Mcg Inhaler] 2 inh PO BID 08/12/16 Ipratropium/Albuterol Sulfate [Iprat-Albut 0.5-3(2.5) mg/3 ml] 3 ml IH BID PRN 08/12/16 Magnesium Oxide [Mag-Ox -] 400 mg PO HS 08/12/16 Metoprolol Succinate [Toprol XL -] 25 mg PO DAILY #30 tab.sr 08/18/16 Albuterol 2.5/Ipratropium 0.5 [Duoneb -] 1 amp NEB QIDR amp 08/26/16 Alprazolam [Xanax] 0.25 mg PO BID PRN #1 tablet MDD 1mg 08/26/16 Furosemide [Lasix -] 20 mg PO DAILY tablet 08/26/16 Guaifenesin [Mucinex -] 1,200 mg PO BID tab.ec 08/26/16 Losartan Potassium [Cozaar -] 25 mg PO DAILY tablet 08/26/16 predniSONE [Deltasone -] 30 mg PO DAILY tablet 08/26/16 Cardiac Specific PMH - Complaint Specific PMHX Angina: Yes Pacemaker: No Pulmonary Embolus: No <Cam Byrd - Last Filed: 10/02/18 04:11> Review of Systems <Cam Byrd - Last Filed: 10/02/18 04:11> <Maria Antonia Marin - Last Filed: 10/02/18 06:46> - Review of Systems Comments:: 10/02/18 02:25 Unable to provide 13 point ROS inspection (Cam Byrd) *Physical Exam <Cam Byrd - Last Filed: 10/02/18 04:11> <Maria Antonia Marin - Last Filed: 10/02/18 06:46> - Vital Signs Last Vital Signs Temp Pulse Resp BP Pulse Ox 0 L 0 L 0/0 L 0 L 10/02/18 02:00 10/02/18 03:54 10/02/18 02:00 10/02/18 02:00 - Physical Exam Comments: 10/02/18 02:42 GENERAL: Patient comatosed, unrepsonsive to verbal, tactile stimuli HEAD: No signs of trauma, normocephalic, atraumatic EYES: sclera anicteric, conjunctiva clear ENT: + emesis posterior orpharynx Auricles normal inspection, nares patent, oropharynx without exudates. NECK: Normal ROM, supple, no lymphadenopathy, JVD, or masses LUNGS:Absent breath sound BL HEART: Absent rate and rhythm, absent carotid and peripheral pulses ABDOMEN: Soft, No masses EXTREMITIES : Pale, mottled, No edema. No clubbing or cyanosis. NEUROLOGICAL: Cranial nerves II through XII not intact. Absent gross motor strength SKIN: Warm, Dry, normal turgor, no rashes or lesions noted (Cam Byrd) ED Treatment Course - LABORATORY CBC & Chemistry Diagram: 10/02/18 02:26 10/02/18 02:26 <Cam Byrd - Last Filed: 10/02/18 04:11> - LABORATORY CBC & Chemistry Diagram: 10/02/18 02:26 10/02/18 02:26 <Maria Antonia Marin - Last Filed: 10/02/18 06:46> - ADDITIONAL ORDERS Additional order review: Laboratory Results 10/02/18 10/02/18 02:26 02:26 PT with INR 20.90 H INR 1.76 H PTT (Actin FS) 45.9 H Sodium 138 Potassium 8.1 H* Chloride 102 Carbon Dioxide 19 L Anion Gap 16 BUN 39.6 H Creatinine 1.9 H Est GFR (CKD-EPI)AfAm 38.55 Est GFR (CKD-EPI)NonAf 33.26 Random Glucose 192 H Calcium 12.2 H Total Bilirubin 1.2 H AST 2023 H ALT 946 H Alkaline Phosphatase 285 H Total Protein 5.9 L Albumin 2.1 L 10/02/18 02:26 RBC 3.87 L MCV 99.4 H MCHC 29.7 L RDW 16.1 H MPV 8.5 Neutrophils % 80.0 Lymphocytes % 16.2 D Monocytes % 3.3 L Eosinophils % 0.2 Basophils % 0.3 Medical Decision Making <Cam Byrd - Last Filed: 10/02/18 04:11> <Maria Antonia Marin - Last Filed: 10/02/18 06:46> - Medical Decision Making 10/02/18 02:25 78 yo F with h/o HLD, HTN, DM, CAD, s/p stent placement, diastolic CHF BIBEMS unresponsive, cardiac asystole. Pt. arrives from home following witnessed arrest , LOC, 1 hour [employer]ARD[employer] with EMS reports of patient in asystole 1:15 (10/02/18) on arrival, with pulseless v-tach, defibrillation unsuccessful, and PEA. 3 rounds of epinephrine delivered in field. Patient intubated in field. Per daughter and at bedside patient in normal state of health, prior to 730 PM. Patient developed altered mental status, with syncope and collapse. Patient comatosed, unrepsonsive to verbal, tactile stimuli in ED, intubated. Patient arrives to ED 145 AM, on TREVON delivering active compressions ED course notable for 2 rounds of Epi 0.1 mg, 1 amp NaHCO3, calcium gluconate, ROSC at 1:53 AM. EKG with LVH criteria PEA at 1:58 AM, resumed manual compressions, with new ET tube placement d/t dislodged tube, absent capnography color change 2 rounds Epi 0. mg, 1 round NaHCO3 with continous asystole on compliance monitor Patient with global hypokinessis/caridac standstill on bedside U/S pronounced at 2:08 AM Family members Corine Varma and daughter notified of patient at approximately 2:11 AM [employer] contacted with provided release number [id number], case not accepted by ME at 2:40 AM. Patient endorsed to Dr. Param Vanegas at 3:07 AM, who will complete certificate 10/02/18 04:11 Laboratory Tests 10/02/18 10/02/18 02:26 02:26 WBC 23.4 H Hgb 11.4 L Hct 38.4 RDW 16.1 H Potassium 8.1 H* BUN 39.6 H Creatinine 1.9 H Calcium 12.2 H AST 2023 H ALT 946 H Alkaline Phosphatase 285 H (Cam Byrd) *DC/Admit/Observation/Transfer <Cam Byrd - Last Filed: 10/02/18 04:11> <Maria Antonia Marin - Last Filed: 10/02/18 06:46> Diagnosis at time of Disposition: Cardiac arrest, - Discharge Dispostion Disposition: Condition at time of disposition: - Referrals Referrals: Param Vanegas MD [Primary Care Provider] -
[2018-10-02 02:32] VITALS: BP 0/0; PULSE 0; BMI 23.7
[2018-10-02 02:45] LABS: BASO % 0.3 % (0-2.0); EOS % 0.2 % (0-4.5); HEMATOCRIT 38.4 % (35.4-49); HEMOGLOBIN 11.4 GM/dL (11.7-16.9); LYMPH % 16.2 % (8-40); MCH 29.5 pg (25.7-33.7); MCHC 29.7 g/dl (32.0-35.9); MEAN CELL VOLUME 99.4 fl (80-96); MEAN PLT VOLUME 8.5 fl (7.5-11.1); MONO % 3.3 % (3.8-10.2); PLATELET COUNT 196 K/MM3 (134-434); RBC 3.87 M/mm3 (4.00-5.60); RDW 16.1 % (11.9-15.9); WHITE BLOOD COUNT 23.4 K/mm3 (4.0-10.0)
[2018-10-02 02:49] LABS: INR 1.76 (0.83-1.09); PROTHROMBIN TIME (PATIENT) 20.9 SEC (9.7-13.0)
[2018-10-02 02:51] LABS: ACTIVATED PTT 45.9 SECONDS (25.2-36.5)
[2018-10-02 03:20] LABS: ALBUMIN 2.1 g/dl (3.4-5.0); BILIRUBIN,TOTAL 1.2 mg/dL (0.2-1); BLOOD UREA NITROGEN 39.6 mg/dL (7-18); CALCIUM 12.2 mg/dL (8.5-10.1); CREATININE 1.9 mg/dL (0.55-1.3); TOT PROT 5.9 g/dl (6.4-8.2)
[2018-10-02 03:45] LABS: POTASSIUM 8.1 mmol/L (3.5-5.1)
[2018-10-02 03:49] LABS: MACROCYTOSIS 1+; PLATELET ESTIMATE ADEQUATE
--- NOTE | 2018-10-02 07:55 | PN ---
Progress Note (short form) - Note Progress Note: Was called about cardio-respiratory arrest in the ED. The patient was pronounced at 2:08 AM 10/02/2018. The family is aware. certificate filled on [facility]
--- NOTE | 2018-10-03 10:38 | EKG ---
Test Reason : Blood Pressure : / mmHG Vent. Rate : 147 BPM Atrial Rate : 066 BPM P-R Int : 000 ms QRS Dur : 218 ms QT Int : 428 ms P-R-T Axes : 000 -54 120 degrees QTc Int : 669 ms POOR DATA QUALITY, INTERPRETATION MAY BE ADVERSELY AFFECTED NORMAL SINUS RHYTHM WITH 1ST DEGREE A-V BLOCK LEFT AXIS DEVIATION LEFT VENTRICULAR HYPERTROPHY WITH QRS WIDENING AND REPOLARIZATION ABNORMALITY ABNORMAL ECG RIGHT BUNDLE BRANCH BLOCK LEFT ANTERIOR FASCICULAR BLOCK BIFASCICULAR BLOCK Confirmed by Shamir Callahan MD ([id number]) on 10/03/2018 10:37:50 AM Referred By: Confirmed By:Shamir Callahan MD
== END 2018-10-02 05:56 | disposition expired ==
LOC: JER 01:50
PROC: 0BH17EZ Insertion of Endotracheal Airway into Trachea, Via Natural or Artificial Opening (ICD-10-PCS; principal; 2018-10-02)
PROC: 5A12012 Performance of Cardiac Output, Single, Manual (ICD-10-PCS; 2018-10-02)
DX: I46.9 Cardiac arrest, cause unspecified (principal); I25.119 Atherosclerotic heart disease of native coronary artery with unspecified angina pectoris; I11.0 Hypertensive heart disease with heart failure; I50.30 Unspecified diastolic (congestive) heart failure; Z95.5 Presence of coronary angioplasty implant and graft; E11.9 Type 2 diabetes mellitus without complications; E78.5 Hyperlipidemia, unspecified; J45.909 Unspecified asthma, uncomplicated; J44.9 Chronic obstructive pulmonary disease, unspecified; Z99.81 Dependence on supplemental oxygen; Z86.73 Personal history of transient ischemic attack (TIA), and cerebral infarction without residual deficits; D64.9 Anemia, unspecified; R97.20 Elevated prostate specific antigen [PSA]
CPT/HCPCS: 31500; 36415; 80053; 85025; 85610; 85730; 92950; 93005; 93010; 99284-25